=== PATIENT | female | born 1980 | race Caucasian/White ===

== ENCOUNTER 2016-10-13 | Emergency (ER) | payer OTHER ==
--- NOTE | 2016-10-13 16:04 | ED ---
General Adult HPI - General Chief complaint: Neck Pain/Injury Stated complaint: Neck Pain/swollen Time Seen by Provider: 10/13/16 15:44 Source: patient, RN notes reviewed Mode of arrival: ambulatory Limitations: no limitations - History of Present Illness Initial comments: This is a 36-year-old female presents with a lump to the left submandibular area 3 days. Patient states she has a history of a blocked salivary duct about 9 months ago. Patient states her symptoms of pain and swelling to the lower left jaw are similar to this. Patient states she has tried sucking on hard candies adn warm compresses, but this has not helped. Patient states the pain is worse when she is eating. Patient states she's had a sore throat for the last 2 weeks but this has completely resolved. Any cough, congestion or headache or sore throat today. Patient denies any recent fever, chills, shortness breath, chest pain, abdominal pain, nausea/vomiting/diarrhea, back pain, numbness, tingling, hematuria, headache, or visual changes, or any other complaints. - Related Data Home Medications Medication Instructions Recorded Confirmed Beclomethasone Dipropionate [Qvar 1 puff INHALATION RT-BID 11/28/15 10/13/16 80 mcg/puff] Hydrocodone/Acetaminophen [[place] 1 tab PO BID PRN 11/28/15 10/13/16 7.5-325] Diazepam [Valium] 10 mg PO BID PRN 01/26/16 10/13/16 Fluticasone Propionate 2 spray EA NOSTRIL DAILY 01/26/16 10/13/16 [Fluticasone Propionate] Ipratropium [place] [Atrovent Hfa] 2 puff INHALATION RT-QID 01/26/16 10/13/16 Pantoprazole Sodium [Pantoprazole 40 mg PO DAILY 01/26/16 10/13/16 Sodium] Butalb/APAP/Caff 50-325-40Mg 1 tab PO Q4H PRN 02/07/16 10/13/16 [Fioricet 50-325-40] guaiFENesin [Mucinex] 600 mg PO BID PRN 02/07/16 10/13/16 Previous Rx's Medication Instructions Recorded Ondansetron Odt [Zofran ODT] 4 mg PO Q8HR PRN #5 tab 02/07/16 Guaifenesin/Dextromethorphan 1 each PO TID PRN #20 capsule 02/13/16 [Robitussin Wazjk-Iujbj-Vpde Dm] Cephalexin [Keflex] 500 mg PO Q6H 7 Days 10/13/16 Allergies Allergy/AdvReac Type Severity Reaction Status Date / Time Penicillins Allergy Chest Pain Verified 02/12/16 22:35 latex AdvReac Rash/Hives Verified 02/12/16 22:35 Review of Systems ROS Statement: Those systems with pertinent positive or pertinent negative responses have been documented in the HPI. ROS Other: All systems not noted in ROS Statement are negative. Past Medical History Past Medical History: Hypertension Additional Past Medical History / Comment(s): marijuana card for chronic pain and nausea History of Any Multi-Drug Resistant Organisms: None Reported Past Surgical History: Orthopedic Surgery, Tonsillectomy, Tubal Ligation Past Anesthesia/Blood Transfusion Reactions: No Reported Reaction Past Psychological History: Anxiety Smoking Status: Former smoker Past Alcohol Use History: None Reported Past Drug Use History: Marijuana - Past Family History Mother Family Medical History: No Reported History General Exam - General Exam Comments Initial Comments: General: The patient is awake and alert, in no distress, and does not appear acutely ill. Eye: Pupils are equal, round and reactive to light, extra-ocular movements are intact. No nystagmus. There is normal conjunctiva bilaterally. No signs of icterus. Ears: TMs pink and pearly bilaterally with intact cone of light bilaterally. Normal external ear canals. Nose: Nasal turbinates pink and moist Mouth and throat: There is no sign of salivary stone, purulent drainage or swelling. No erythema of the posterior pharynx or exudates. There are moist mucous membranes and no oral lesions. Neck: There is tenderness to palpation over the submandibular area of the left side and an approximately 1 cm lump. Tender to palpation. There is no erythema or swelling noted with visualization. The neck is supple, there is no JVD. Cardiovascular: There is a regular rate and rhythm. No murmur, rub or gallop is appreciated. Respiratory: Lungs are clear to auscultation, respirations are non-labored, breath sounds are equal. No wheezes, stridor, rales, or rhonchi. Musculoskeletal: Normal ROM, no tenderness. Strength 5/5. Sensation intact. Radial pulses equal bilaterally 2+. Neurological: A&O x 3. CN II-XII intact, There are no obvious motor or sensory deficits. Coordination appears grossly intact. Speech is normal. Skin: Skin is warm and dry and no rashes or lesions are noted. Psychiatric: Cooperative, appropriate mood & affect, normal judgment. Limitations: no limitations Course Vital Signs 10/13/16 15:29 Temperature 99.1 F Pulse Rate 100 Respiratory 20 Rate Blood Pressure 133/85 O2 Sat by Pulse 95 Oximetry Medical Decision Making - Medical Decision Making This is a 36 over female presents with tenderness to the left submandibular area 3 days. On physical exam Mouth and throat: There is no sign of salivary stone, purulent drainage or swelling. No erythema of the posterior pharynx or exudates. There are moist mucous membranes and no oral lesions. Neck: There is tenderness to palpation over the submandibular area of the left side and an approximately 1 cm lump. Tender to palpation. There is no erythema or swelling noted with visualization. The neck is supple, there is no JVD. Tender to palpation. There is no erythema or swelling noted with visualization. The neck is supple, there is no JVD. Patient is afebrile in the EC today. Discussed that the patient will be put on a course of Keflex. Discussed continuation of hard candy/lemon drops, warm compresses to the area and massage to the area. Discussed Tylenol or Motrin as stated for any pain. Discussed close follow-up with primary care physician. Discussed return parameters. Discussed that patient should follow up with PCP in one to 2 days or return to the EC for any worsening symptoms or for any further concerns. Patient was receptive to this plan and patient will be discharged home. I discussed his case with attending physician Dr. Carrington who agrees the plan as stated above. Disposition Clinical Impression: Sialadenitis Disposition: HOME SELF-CARE Condition: Good Instructions: Sialoadenitis (ED) Additional Instructions: Please finish entire course of antibiotics. Please continue hard candy, warm compresses to the area and gentle massages to the area. Please use Tylenol or Motrin for any pain.Please use medication as discussed. Please follow-up with family doctor in the next 2 days of symptoms have not improved. Please return to emergency room if the symptoms increase or worsen or for any other concerns. Prescriptions: Cephalexin [Keflex] 500 mg PO Q6H 7 Days Referrals: Melquiades Bruce MD [Primary Care Provider] - 1-2 days Time of Disposition: 16:15
== END 2016-10-13 16:26 | disposition home or self-care (01) ==
CPT/HCPCS: 99283

== ENCOUNTER → 2017-02-06 | Outpatient (CLI) | payer OTHER ==
--- NOTE | 2017-02-06 10:13 | US ---
EXAMINATION TYPE: US pelvis complete transvag DATE OF EXAM: 02/06/2017 9:48 AM COMPARISON: None CLINICAL HISTORY: N92.0 Mennorrheagia with reg cycle. FU right ovarian cysts, tubal ligation TECHNIQUE: Transvaginal (TV) and Transabdominal (TA) Date of LMP: 12/31/2016, EXAM MEASUREMENTS: Uterus: 12.3 x 5.3 x 3.9 cm Endometrial Stripe: 0.8 cm Left Ovary: 2.8 x 2.0 x 2.0 cm 1. Uterus: Anteverted right hypoechoic lesion - 1.7 x 1.6 x 1.7 cm 2. Endometrium: wnl 3. Right Ovary: Obscured by overlying bowel gas 4. Left Ovary: echogenic lesion, nonvascular = 0.3 x 0.5 x 0.5 cm Spectral, color and waveform doppler imaging shows good arterial and venous flow within the ovaries ; there is no evidence for ovarian torsion. 5. Bilateral Adnexa: wnl 6. Posterior cul-de-sac: no free fluid IMPRESSION: 1. Nonspecific 5 mm echogenic lesion left ovary 2 small to accurately characterize could represent a dermoid. Other etiologies not excluded. 2. Hypoechoic lesion uterine myometrium nonspecific but most suggestive of fibroid measuring 1.7 cm.
[2017-02-06 11:46] LABS: Follicle Stimulating Hormone 2.7 mIU/mL
== END | disposition home or self-care (01) ==
LOC: RADUSWWP 08:59
PROVIDERS: ATTEND Obstetrics & Gynecology
DX: N85.9 Noninflammatory disorder of uterus, unspecified (principal); N83.9 Noninflammatory disorder of ovary, fallopian tube and broad ligament, unspecified; N92.0 Excessive and frequent menstruation with regular cycle
CPT/HCPCS: 36415; 76830; 76856; 83001; 83002; 84146; 84443

== ENCOUNTER → 2017-02-13 | Outpatient (CLI) | payer OTHER ==
--- NOTE | 2017-02-14 08:40 | MM ---
Reason for exam: screening (asymptomatic). Baseline mammogram. History: Took hormonal contraceptives for 1 year beginning at age 31. Physical Findings: Nurse did not find any significant physical abnormalities on exam. MG Screening Mammo w CAD Bilateral CC and MLO view(s) were taken. The breast tissue is heterogeneously dense. This may lower the sensitivity of mammography. Finding: There is a 10 mm indistinct oval mass in the middle, central position of the left breast. These results were verbally communicated with the patient and result sheet given to the patient on . ASSESSMENT: Incomplete: need additional imaging evaluation, BI-RAD 0 RECOMMENDATION: Special view mammogram of the left breast. If lesion persists on supplemental views, image directed ultrasound is recommended. [facility] will attempt to contact patient to return for supplemental views and ultrasound if indicated.
--- NOTE | 2017-02-14 08:42 | MM ---
Reason for exam: additional evaluation requested from abnormal screening. History: Took hormonal contraceptives for 1 year beginning at age 31. MG Work Up Mamm w CAD LT Spot compression CC, spot compression MLO, and ML view(s) were taken of the left breast. The breast tissue is heterogeneously dense. This may lower the sensitivity of mammography. Finding: There is a 10 mm obscured oval mass in the middle, central position of the left breast, persists on additional views. These results were verbally communicated with the patient and result sheet given to the patient on 02/13/17. ASSESSMENT: Incomplete: need additional imaging evaluation, BI-RAD 0 RECOMMENDATION: Ultrasound of the left breast.
--- NOTE | 2017-02-14 08:44 | USB ---
Reason for exam: additional evaluation requested from abnormal screening. History: Took hormonal contraceptives for 1 year beginning at age 31. US Breast Workup LT Left breast ultrasound includes all four quadrants, the retroareolar region and axilla. Finding demonstrate no cystic or solid lesion seen. Image directed scan with mammogram unit-not seen by ultrasound. These results were verbally communicated with the patient and result sheet given to the patient on 02/13/17. ASSESSMENT: Suspicious, BI-RAD 4 RECOMMENDATION: Stereotactic core biopsy of the left breast. (no ultrasound correlation) Called Dr. Keith with mammographic findings and has scheduled an appointment for the patient for 02/26/17 at 9:[address] Dowell. Biopsy scheduled for 02/21/17 at 2:20. PRELIMINARY REPORT CALLED AND FAXED TO DR. DOWELL ON 02/14/17 AT 300/TP.
== END | disposition home or self-care (01) ==
LOC: RADMAMWWP 08:15
PROVIDERS: ATTEND Obstetrics & Gynecology
DX: Z12.31 Encounter for screening mammogram for malignant neoplasm of breast (principal); R92.8 Other abnormal and inconclusive findings on diagnostic imaging of breast; R92.2 Inconclusive mammogram
CPT/HCPCS: 76641; G0202; G0206

== ENCOUNTER → 2017-02-21 | Day surgery (SDC) | payer OTHER ==
[~2017-02-21] MED LIST: BACITRACIN OINT 1 EACH PACKET TOPICAL ONE; LIDOCAINE 1% INJ 10MG/ML (20 ML MDV) ONE
--- NOTE | 2017-02-26 13:04 | MM ---
EXAMINATION TYPE: MG stereo VAD BX LT DATE OF EXAM: 02/21/2017 COMPARISON: 02/13/2017 CLINICAL HISTORY: Abnormal mammogram TECHNIQUE: Stereotactic guided core biopsy of left breast. FINDINGS: The procedure of stereotactic guided core biopsy was explained to the patient. Benefits, alternatives, and risks were discussed. An informed consent was then obtained. The shortness pathway for biopsy was chosen. [facility] Targeting and the procedure were performed by Dr. Berg. A vacuum assisted biopsy gun was used to obtain multiple core samples. The patient tolerated the procedure well without any immediate complication. The patient was kept in the radiology department for short stay after the procedure and then discharged home in stable condition. Post biopsy mammogram shows the clip to appear in satisfactory position relative to the targeted masslike area of concern on the preprocedure images. IMPRESSION: SUCCESSFUL, UNCOMPLICATED STEREOTACTIC GUIDED CORE BIOPSY OF AREA OF CONCERN IN THE left BREAST, FULL PATHOLOGY RESULTS TO FOLLOW. Pathology Results: Benign BREAST, LEFT, SITE A, CORE BIOPSY: FIBROCYSTIC CHANGES INCLUDING FIBROADENOMATOID HYPERPLASIA WITH FOCAL FAT NECROSIS, FIBROSIS AND CYSTS. Recommendation Follow up mammogram and ultrasound of the left breast in 6 months. ED
== END ==
LOC: RADMAMWWP 14:08
PROVIDERS: ATTEND Surgery
DX: N62 Hypertrophy of breast (principal); R92.8 Other abnormal and inconclusive findings on diagnostic imaging of breast; D24.2 Benign neoplasm of left breast; N64.1 Fat necrosis of breast; N60.32 Fibrosclerosis of left breast; N60.12 Diffuse cystic mastopathy of left breast; Z91.040 Latex allergy status
CPT/HCPCS: 88305; 19081; A4648; J2001

== ENCOUNTER 2017-03-29 06:23 | Day surgery (SDC) | payer OTHER ==
[2017-03-26 17:10] VITALS: BMI 43.9
[~2017-03-29 06:23] MED LIST changes: -BACITRACIN OINT 1 EACH PACKET TOPICAL ONE; +DEXAMETHASONE SOD PHOSPHATE 10 MG/ML 1 ML VIAL IV ONE; +LACTATED RINGERS 1,000 ML IV SCH; -LIDOCAINE 1% INJ 10MG/ML (20 ML MDV) ONE; +MIDAZOLAM 2 MG/2 ML VIAL IV PRN; +ONDANSETRON 4 MG/2 ML VIAL IVP ONE; +Pre Op ABX Message 1 EACH MISC MISCELLANE ONE; +SCOPOLAMINE 1.5MG/72HR PATCH TRANSDERM ONE
[2017-03-29] MEDS ORDERED: LIDOCAINE 1% 20 ML VIAL (10MG/ML) FOR IV START INTRADERMA ONE (06:59)
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
[2017-03-29] MEDS ORDERED: KETOROLAC 30 MG/ML 1 ML VIAL ONE (07:42)
[2017-03-29] MEDS ORDERED: LIDOCAINE 1% INJ 10MG/ML (20 ML MDV) ONE (07:42)
[2017-03-29] MEDS ORDERED: fentaNYL (PF) 50 MCG/ML 2 ML AMP ONE (07:42)
[2017-03-29] MEDS ORDERED: MEPERIDINE 50 MG/ML SYRINGE ONE (07:42)
[2017-03-29] MEDS ORDERED: MIDAZOLAM 2 MG/2 ML VIAL ONE (07:42)
[2017-03-29] MEDS ORDERED: SUCCINYLCHOLINE CHLORIDE 100 MG/5 ML SYR IV ONE (07:42)
[2017-03-29] MEDS ORDERED: GLYCOPYRROLATE 0.2 MG/ML 2 ML VIAL ONE (07:42)
[2017-03-29] MEDS ORDERED: PROPOFOL 10 MG/ML 20 ML VIAL IV ONE (07:42)
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
[2017-03-29 08:20] VITALS: TEMP 97.2
[2017-03-29] MEDS: HYDROmorphone 1 MG/ML 1 ML SYRINGE IVP PRN ×2 (08:24→08:33)
[2017-03-29 09:18] VITALS: RESP 16
[2017-03-29 09:40] VITALS: BP 102/69; PULSE 71
== END 2017-03-29 10:28 | disposition home or self-care (01) ==
LOC: OR 06:23
PROVIDERS: ATTEND Obstetrics & Gynecology
DX: N92.0 Excessive and frequent menstruation with regular cycle (principal); N85.9 Noninflammatory disorder of uterus, unspecified; N85.00 Endometrial hyperplasia, unspecified; J45.909 Unspecified asthma, uncomplicated; K21.9 Gastro-esophageal reflux disease without esophagitis; F41.9 Anxiety disorder, unspecified; E78.5 Hyperlipidemia, unspecified; I10 Essential (primary) hypertension; G89.29 Other chronic pain; F12.90 Cannabis use, unspecified, uncomplicated; G43.909 Migraine, unspecified, not intractable, without status migrainosus; R11.0 Nausea; Z87.891 Personal history of nicotine dependence; Z91.040 Latex allergy status; Z79.899 Other long term (current) drug therapy; Z79.51 Long term (current) use of inhaled steroids
CPT/HCPCS: 58563; 81025; 88305; J2250; J1100; J2175; J2405; J2001; J3010; J1885; J1170; J0330; J2704

== ENCOUNTER 2017-06-19 08:24 | Emergency (ER) | payer OTHER ==
[2017-06-19 08:34] VITALS: PULSE 69
--- NOTE | 2017-06-19 08:50 | ED ---
General Adult HPI - General Chief complaint: Neck Pain/Injury Stated complaint: NECK PAIN Time Seen by Provider: 06/19/17 08:39 Source: patient, RN notes reviewed Mode of arrival: ambulatory Limitations: no limitations - History of Present Illness Initial comments: 36-year-old female presents to the emergency department with a chief complaint of left-sided posterior neck swelling. Patient states the last year so she's noticed is gradually growing area to the left side of the neck. Patient states she's now having numbness and tingling down her left arm. Patient states it's tender to touch or issues denies any drainage or discharge. She does admit to history of systems the past. She continues to have this discomfort so she thought that she should be evaluated. Patient denies any falls traumas or injuries. Patient denies any fever or chills. Patient denies any other symptoms at this time.Patient denies any recent fever, chills, shortness of breath, chest pain, back pain, abdominal pain, nausea vomiting, numbness or tingling, dysuria or hematuria, constipation or diarrhea, headaches or visual changes, or any other current symptoms. - Related Data Home Medications Medication Instructions Recorded Confirmed Pantoprazole Sodium [Pantoprazole 40 mg PO DAILY 01/26/16 03/29/17 Sodium] Butalb/APAP/Caff 50-325-40Mg 1 tab PO Q4H PRN 02/07/16 03/29/17 [Fioricet 50-325-40] Albuterol Inhaler [Ventolin Hfa 1 - 2 puff INHALATION Q6HR PRN 03/26/17 03/29/17 Inhaler] Sertraline [Zoloft] 50 mg PO HS 03/26/17 03/29/17 Topiramate [Topiramate] 50 mg PO HS 03/26/17 03/29/17 Budesonide/Formoterol Fumarate 1 puff INHALATION RT-BID 06/19/17 06/19/17 [Symbicort 80-4.5 Mcg Inhaler] Diazepam [Valium] 5 mg PO DAILY PRN 06/19/17 06/19/17 Hydrocodone/Acetaminophen [[place] 1 tab PO BID PRN 06/19/17 06/19/17 7.5-325] Previous Rx's Medication Instructions Recorded Ibuprofen [Motrin] 600 mg PO Q6HR PRN #30 tab 06/30/17 Allergies Allergy/AdvReac Type Severity Reaction Status Date / Time latex Allergy Rash/Hives Verified 06/19/17 08:59 Review of Systems ROS Statement: Those systems with pertinent positive or pertinent negative responses have been documented in the HPI. ROS Other: All systems not noted in ROS Statement are negative. Past Medical History Past Medical History: Hypertension Additional Past Medical History / Comment(s): marijuana card for chronic pain and nausea History of Any Multi-Drug Resistant Organisms: None Reported Past Surgical History: Orthopedic Surgery, Tonsillectomy, Tubal Ligation Past Anesthesia/Blood Transfusion Reactions: No Reported Reaction Past Psychological History: ADD/ADHD, Anxiety, Bipolar, Depression Smoking Status: Former smoker Past Alcohol Use History: Occasional Past Drug Use History: Marijuana - Past Family History Mother Family Medical History: No Reported History General Exam Limitations: no limitations General appearance: alert, in no apparent distress Head exam: Present: atraumatic, normocephalic, normal inspection Eye exam: Present: normal appearance, PERRL, EOMI. Absent: scleral icterus, conjunctival injection, periorbital swelling ENT exam: Present: normal exam, mucous membranes moist Neck exam: Present: normal inspection, full ROM, other (She does appear to have swelling over the left lateral aspect of the neck). Absent: tenderness, meningismus Respiratory exam: Present: normal lung sounds bilaterally. Absent: respiratory distress, wheezes, rales, rhonchi, stridor Cardiovascular Exam: Present: regular rate, normal rhythm, normal heart sounds. Absent: systolic murmur, diastolic murmur, rubs, gallop, clicks Extremities exam: Present: normal inspection, full ROM, normal capillary refill. Absent: tenderness, pedal edema, joint swelling, calf tenderness Neurological exam: Present: alert, oriented X3 Psychiatric exam: Present: normal affect, normal mood Skin exam: Present: warm, dry, intact, normal color. Absent: rash Course Vital Signs 06/19/17 08:32 Temperature 97.5 F L Pulse Rate 69 Respiratory 18 Rate Blood Pressure 140/91 O2 Sat by Pulse 98 Oximetry Medical Decision Making - Medical Decision Making 36-year-old female presents emergency department with a chief complaint of concern during the posterior neck. At this time the patient does appear to have some tenderness with patient. CAT scan is reviewed and negative. At this time we discussed the could be a muscle spasm. We did discuss heat to the area. Discussed follow-up with neurologist return parameters and all his questions. They stated the Luis Alberto management plan. They will be discharged home. - Radiology Data Radiology results: report reviewed, image reviewed Disposition Clinical Impression: Cervical muscle pain Disposition: HOME SELF-CARE Condition: Stable Instructions: Muscle Spasm (ED) Additional Instructions: Please use medication as discussed. Please follow up with family doctor if symptoms have not improved over the next two days. Please return to the emergency room if your symptoms increase or worsen or for any other concerns. Referrals: Yue Roca MD [Primary Care Provider] - 1-2 days Time of Disposition: 10:19
--- NOTE | 2017-06-19 09:33 | CT ---
EXAMINATION TYPE: CT cervical spine wo con DATE OF EXAM: 06/19/2017 COMPARISON: NONE HISTORY: neck pain/lump posteriorly started [address] DLP: 913.[address] of the cervical spine was performed with bone and soft tissue window settings submitted . Coronal and sagittal reconstruction is obtained. There is normal alignment and prevertebral soft tissues. I do not see evidence for fracture or sublu xation. No significant degenerative changes are present. The lung apices are clear. If symptoms per sist consider MRI. IMPRESSION: No evidence for fracture or subluxation of the cervical spine.
[2017-06-19 10:23] VITALS: BP 138/83; RESP 16; TEMP 99.1
== END 2017-06-19 10:24 | disposition home or self-care (01) ==
LOC: EC 08:24
DX: M79.1 Myalgia (principal); R22.1 Localized swelling, mass and lump, neck; R20.0 Anesthesia of skin; R20.2 Paresthesia of skin; F41.9 Anxiety disorder, unspecified; Z87.891 Personal history of nicotine dependence; Z79.51 Long term (current) use of inhaled steroids; Z79.899 Other long term (current) drug therapy; Z91.040 Latex allergy status
CPT/HCPCS: 72125; 99283

== ENCOUNTER → 2017-07-19 | Outpatient (CLI) | payer OTHER ==
--- NOTE | 2017-07-22 09:50 | MR ---
EXAMINATION TYPE: MR cervical spine wo con DATE OF EXAM: 07/19/2017 COMPARISON: NONE HISTORY: Neck pain TECHNIQUE: Multiplanar, multisequence images of the cervical spine were acquired. C2-C3: No evidence for degenerative disc disease. No disc bulge/herniation or protrusion. No Canal stenosis. Foramina are patent bilaterally. C3-C4: Degenerative disc disease. There is uncovertebral joint hypertrophy bilaterally. No neural for aminal encroachment or canal stenosis. C4-C5: Degenerative disc disease. There is uncovertebral joint hypertrophy and left paracentral later al disc bulging with mild left foraminal encroachment. No Canal stenosis. C5-C6: Degenerative disc disease with posterior spondylosis and uncovertebral joint hypertrophy. Broa d-based central disc bulging greater paracentrally to left with no evidence of canal stenosis. Mild b ilateral foraminal encroachment. C6-C7: No disc herniation or canal stenosis. No foraminal encroachment. Very mild left paracentral di sc bulging. C7-T1: No evidence for degenerative disc disease. No disc bulge/herniation or protrusion. No Canal stenosis. Foramina are patent bilaterally. Cervical segments are intact. There is normal alignment. Cervical spinal cord is of normal signal. Craniovertebral junction relationships are within normal limits. IMPRESSION: 1. Multilevel degenerative disc disease with loss of the normal cervical lordosis which could been th e basis of muscular spasm. 2. Multilevel disc bulging with no canal stenosis. Foraminal encroachment as discussed above.
== END | disposition home or self-care (01) ==
LOC: RADMRIMAIN 21:08
PROVIDERS: ATTEND Psychiatry & Neurology Pain Medicine
DX: M50.20 Other cervical disc displacement, unspecified cervical region (principal); M50.30 Other cervical disc degeneration, unspecified cervical region
CPT/HCPCS: 72141

== ENCOUNTER → 2018-01-03 | Outpatient (CLI) | payer OTHER ==
--- NOTE | 2018-01-03 09:22 | CT ---
EXAMINATION TYPE: CT foot RT wo con DATE OF EXAM: 01/03/2018 COMPARISON: 06/22/2016 HISTORY: 37-year-old female primary OA right foot, assess status of the arthrodesis, foot pain. TECHNIQUE: Contiguous axial scanning of the right foot without IV contrast. Coronal and sagittal renetta nstructions performed. Radiographic obstruction generated on a dedicated independent workstation. CT DLP: 188.6 mGycm Automated exposure control for dose reduction was used. FINDINGS: Postsurgical changes of surgical arthrodesis along the medial midfoot encompassing the Lisfranc joint , first and second TMT joints, and the medial and middle cuneiforms. The surgical hardware remains in tact. Of note, the horizontally oriented, laterally directed screw that traverses the medial cuneiforms and base of the second metatarsal has its tip just piercing the lateral cortex second metatarsal base an d protrudes into the second-third intermetatarsal joint (coronal image 35 and 36 and axial image 30 a nd 31). There is satisfactory bony fusion seen along the dorsal and mid aspect of the intercuneiform joint. S mall 6 mm bone fragment interposed between the inferior aspects of the cuneiforms was present on the preoperative exam in retrospect. Satisfactory bony bridging across the first and second TMT joints. No acute fracture or malalignment. Intraosseous lipoma measuring 2.4 cm posterior calcaneus. IMPRESSION: 1. MIDFOOT SURGICAL ARTHRODESIS ACROSS THE LISFRANC JOINT, FIRST AND SECOND TMT JOINTS, WELL TH E MEDIAL AND MIDDLE CUNEIFORMS. 2. SUCCESSFUL BONY ANKYLOSIS ACROSS THE FIRST AND SECOND TMT JOINTS WELL THE DORSAL AND MID ASP ECT OF THE MEDIAL-MID CUNEIFORM JOINT. 3. OF NOTE, THE TIP OF THE LATERALLY DIRECTED SCREW THAT TRAVERSES THE MEDIAL CUNEIFORM AND BASE OF T HE SECOND METATARSAL JUST PIERCES THE LATERAL CORTEX OF THE SECOND METATARSAL BASE AND PROTRUDES MINI OLIMPIA INTO THE SECOND-THIRD INTERMETATARSAL JOINT.
== END | disposition home or self-care (01) ==
LOC: RADCTMAIN 07:22
PROVIDERS: ATTEND Orthopaedic Surgery Foot and Ankle Surgery
DX: M24.674 Ankylosis, right foot (principal); M19.071 Primary osteoarthritis, right ankle and foot; Z98.1 Arthrodesis status

== ENCOUNTER 2018-01-04 14:48 | Emergency (ER) | payer OTHER ==
[2018-01-04 15:27] LABS: Appearance,Urine Cloudy (Clear); Bilirubin,Urine Negative (Negative); Blood,Urine Negative (Negative); Color,Urine Yellow; Glucose,Urine (UA) Negative (Negative); Ketones,Urine Negative (Negative); Leukocyte Esterase,Urine Negative (Negative); Mucus,Urine Few /hpf; Nitrite,Urine Negative (Negative); PH, Urine 5.5 (5.0-8.0); Protein,Urine Negative (Negative); RBC,Urine 1 /hpf (0-5); Specific Gravity,Urine 1.011 (1.001-1.035); Squamous Epithelial Cell,Urine 15 /hpf (0-4); Urobilinogen,Urine <2.0 mg/dL (<2.0); WBC,Urine 2 /hpf (0-5)
--- NOTE | 2018-01-04 16:56 | ED ---
General Adult HPI - General Chief complaint: Urogenital Stated complaint: Back pain Time Seen by Provider: 01/04/18 16:45 Source: patient, RN notes reviewed Mode of arrival: ambulatory Limitations: no limitations - History of Present Illness Initial comments: Patient 37-year-old female who presents emergency room today with chief complaint of a knot that she can feel the right flank area. She states that she was diagnosed with urinary tract infection a few days ago has currently been on Macrobid. She states she noticed a fall smell with her urine and went to the family doctor. She states that the smell is gone away. She denies any dysuria. She states she feels better with the urinary tract symptoms. She admits that she felt a knot to the right flank area. Worse with certain movements. She does admit that she was lifting heavier things the other day. She states she does have some chronic back pain. She was worried was unsure if this was related she should have it checked. Patient denies any other complaints or symptoms. Patient denies any recent fever, chills, shortness of breath, chest pain, abdominal pain, nausea or vomiting, numbness or tingling, headaches or visual changes, or any other complaints. - Related Data Home Medications Medication Instructions Recorded Confirmed Pantoprazole Sodium [Pantoprazole 40 mg PO DAILY 01/26/16 01/04/18 Sodium] Butalb/APAP/Caff 50-325-40Mg 1 tab PO Q4H PRN 02/07/16 01/04/18 [Fioricet 50-325-40] Albuterol Inhaler [Ventolin Hfa 2 puff INHALATION RT-Q6H PRN 03/26/17 01/04/18 Inhaler] Sertraline [Zoloft] 50 mg PO HS 03/26/17 01/04/18 Topiramate [Topiramate] 50 mg PO HS 03/26/17 01/04/18 Budesonide/Formoterol Fumarate 1 puff INHALATION RT-BID 06/19/17 01/04/18 [Symbicort 80-4.5 Mcg Inhaler] Hydrocodone/Acetaminophen [[place] 1 tab PO BID PRN 06/19/17 01/04/18 7.5-325] Cyclobenzaprine HCl 10 mg PO HS PRN 01/04/18 01/04/18 LORazepam [Ativan] 0.5 mg PO HS PRN 01/04/18 01/04/18 Nitrofurantoin Monohyd/M-Cryst 100 mg PO BID 01/04/18 01/04/18 [Macrobid] Allergies Allergy/AdvReac Type Severity Reaction Status Date / Time latex Allergy Rash/Hives Verified 01/04/18 16:40 Review of Systems ROS Statement: Those systems with pertinent positive or pertinent negative responses have been documented in the HPI. ROS Other: All systems not noted in ROS Statement are negative. Past Medical History Past Medical History: Hypertension Additional Past Medical History / Comment(s): marijuana card for chronic pain and nausea History of Any Multi-Drug Resistant Organisms: None Reported Past Surgical History: Orthopedic Surgery, Tonsillectomy, Tubal Ligation Past Anesthesia/Blood Transfusion Reactions: No Reported Reaction Past Psychological History: ADD/ADHD, Anxiety, Bipolar, Depression Smoking Status: Former smoker Past Alcohol Use History: Rare Past Drug Use History: Marijuana - Past Family History Mother Family Medical History: No Reported History General Exam - General Exam Comments Initial Comments: General: The patient is awake and alert, in no distress, and does not appear acutely ill. Eye: Pupils are equal, round and reactive to light, extra-ocular movements are intact. No nystagmus. There is normal conjunctiva bilaterally. No signs of icterus. Ears, nose, mouth and throat: There are moist mucous membranes and no oral lesions. Neck: The neck is supple, there is no tenderness or JVD. Cardiovascular: There is a regular rate and rhythm. No murmur, rub or gallop is appreciated. Respiratory: Lungs are clear to auscultation, respirations are non-labored, breath sounds are equal. No wheezes, stridor, rales, or rhonchi Musculoskeletal: Normal appearance of the back shows good range of motion. Patient does have a area over on the right flank in the soft tissue that is firm or on palpation. Difficult to distinguish compared to the other side if there is any difference. Patient doesn't that is worse with certain movements of 20 minutes twisting. Strength 5/5. Sensation intact. Pulses equal bilaterally 2+. Neurological: A&O x 3. CN II-XII intact, There are no obvious motor or sensory deficits. Coordination appears grossly intact. Speech is normal. Skin: Skin is warm and dry and no rashes or lesions are noted. Psychiatric: Cooperative, appropriate mood & affect, normal judgment. Limitations: no limitations Course Vital Signs 01/04/18 15:09 Temperature 97.3 F L Pulse Rate 71 Respiratory 18 Rate Blood Pressure 136/12 O2 Sat by Pulse 97 Oximetry Medical Decision Making - Medical Decision Making Patient's area of pain is in the muscular skeletal area and is worse with certain movements. Is felt that this is a possible strain muscle. Advised to use muscle she states she does have at home when she may begin to use. She does have pain medicine at home. Her urinalysis showing no signs of infection at this time is advised to continue with the antibiotic that she was producing prescribed. Patient is advised to use heat to the areas there is some improvement over the next few days. Advised to follow-up the family physician if symptoms are not improving return here to the emergency room symptoms increase or worsen. - Lab Data Lab Results 01/04/18 Range/Units 15:15 Urine Color Yellow Urine Appearance Cloudy H (Clear) Urine pH 5.5 (5.0-8.0) Ur Specific [place] 1.011 (1.001-1.035) Urine Protein Negative (Negative) Urine Glucose (UA) Negative (Negative) Urine Ketones Negative (Negative) Urine Blood Negative (Negative) Urine Nitrite Negative (Negative) Urine Bilirubin Negative (Negative) Urine Urobilinogen <2.0 (<2.0) mg/dL Ur Leukocyte Esterase Negative (Negative) Urine RBC 1 (0-5) /hpf Urine WBC 2 (0-5) /hpf Ur Squamous Epith Cells 15 H (0-4) /hpf Urine Mucus Few H (None) /hpf Disposition Clinical Impression: Flank pain Disposition: HOME SELF-CARE Condition: Good Instructions: Muscle Strain (ED) Additional Instructions: Please use medication as discussed. Please follow-up with family doctor in the next 2 days of symptoms have not improved. Please return to emergency room if the symptoms increase or worsen or for any other concerns. Referrals: Yue Roca MD [Primary Care Provider] - 1-2 days Time of Disposition: 16:55
[2018-01-04 17:01] VITALS: BP 136/74; PULSE 83; RESP 16; TEMP 98.5
== END 2018-01-04 17:23 | disposition home or self-care (01) ==
LOC: EC 14:48
DX: R10.9 Unspecified abdominal pain (principal); M54.9 Dorsalgia, unspecified; F90.9 Attention-deficit hyperactivity disorder, unspecified type; F41.9 Anxiety disorder, unspecified; F31.9 Bipolar disorder, unspecified; Z87.891 Personal history of nicotine dependence; Z79.51 Long term (current) use of inhaled steroids; Z79.899 Other long term (current) drug therapy; Z91.040 Latex allergy status
CPT/HCPCS: 81001; 87086; 99283

== ENCOUNTER 2018-08-02 22:23 | Emergency (ER) | payer OTHER ==
[2018-08-02 22:32] VITALS: RESP 18
[2018-08-02] MEDS ORDERED: HYDROcodone/APAP 5-325MG 1 EACH TAB PO STA (23:03)
[2018-08-02] MEDS ORDERED: LIDOCAINE 5% PATCH TOPICAL STA (23:03)
--- NOTE | 2018-08-02 23:05 | ED ---
General Adult HPI - General Chief complaint: Urogenital Stated complaint: Back pain Source: patient Mode of arrival: ambulatory Limitations: no limitations - History of Present Illness Initial comments: Dictation was produced using [employer] dictation software. please excuse any grammatical, word or spelling errors. Chief Complaint: 37-year-old field past medical history of back spasms and kidney stones presents with 1 week of right-sided flank pain. History of Present Illness: Patient states that her flank pain feels like a burning sensation that is worse in the CVA area. She does report that it slightly worse with movement. Patient has a history of kidney stones. She states that she's been having difficulty urinating. She was concerned that she may be possibly having a kidney stone or urinary tract infection. Patient takes [place] daily for her chronic back symptoms. Denies any nausea or vomiting. No diarrhea. Constitutional symptoms. The ROS documented in this emergency department record has been reviewed and confirmed by me. Those systems with pertinent positive or negative responses have been documented in the HPI. All other systems are other negative and/or noncontributory. - Related Data Home Medications Medication Instructions Recorded Confirmed Pantoprazole Sodium 40 mg PO DAILY 01/26/16 01/04/18 Butalb/APAP/Caff 50-325-40Mg 1 tab PO Q4H PRN 02/07/16 01/04/18 [Fioricet 50-325-40] Albuterol Inhaler [Ventolin Hfa 2 puff INHALATION RT-Q6H PRN 03/26/17 01/04/18 Inhaler] Sertraline [Zoloft] 50 mg PO HS 03/26/17 01/04/18 Topiramate 50 mg PO HS 03/26/17 01/04/18 Budesonide/Formoterol Fumarate 1 puff INHALATION RT-BID 06/19/17 01/04/18 [Symbicort 80-4.5 Mcg Inhaler] Hydrocodone/Acetaminophen [[place] 1 tab PO BID PRN 06/19/17 01/04/18 7.5-325] Cyclobenzaprine HCl 10 mg PO HS PRN 01/04/18 01/04/18 LORazepam [Ativan] 0.5 mg PO HS PRN 01/04/18 01/04/18 Nitrofurantoin Monohyd/M-Cryst 100 mg PO BID 01/04/18 01/04/18 [Macrobid] Allergies Allergy/AdvReac Type Severity Reaction Status Date / Time latex Allergy Rash/Hives Verified 08/02/18 22:32 Review of Systems ROS Statement: Those systems with pertinent positive or pertinent negative responses have been documented in the HPI. ROS Other: All systems not noted in ROS Statement are negative. Past Medical History Past Medical History: Hypertension Additional Past Medical History / Comment(s): marijuana card for chronic pain and nausea History of Any Multi-Drug Resistant Organisms: None Reported Past Surgical History: Orthopedic Surgery, Tonsillectomy, Tubal Ligation Past Anesthesia/Blood Transfusion Reactions: No Reported Reaction Past Psychological History: ADD/ADHD, Anxiety, Bipolar, Depression Smoking Status: Former smoker Past Alcohol Use History: Rare Past Drug Use History: Marijuana - Past Family History Mother Family Medical History: No Reported History General Exam - General Exam Comments Initial Comments: PHYSICAL EXAM: General Impression: Alert and oriented x3, not in acute distress HEENT: Normocephalic atraumatic, extra-ocular movements intact, pupils equal and reactive to light bilaterally, mucous membranes moist. Cardiovascular: Heart regular rate and rhythm, S1&S2 audible, no murmurs, rubs or gallops Chest: Lungs clear to auscultation bilaterally, no rhonchi, no wheeze, no rales Abdomen: Bowel sounds present, abdomen soft, non-tender, non-distended, no organomegaly Musculoskeletal: Pulses present and equal in all extremities, no peripheral edema Motor: Power 5/5 bilaterally, no focal deficits noted Neurological: CN II-XII grossly intact, no focal motor or sensory deficits noted Skin: Intact with no visualized rashes Psych: Normal affect and mood Limitations: no limitations Course Vital Signs 08/02/18 22:29 Temperature 98.0 F Pulse Rate 96 Respiratory 18 Rate Blood Pressure 119/84 O2 Sat by Pulse 95 Oximetry Medical Decision Making - Medical Decision Making ED course: 37-year-old female past medical history of chronic back pain, kidney stones. He is also having urinary symptoms. Vital signs upon arrival are within acceptable limits.Laboratory evaluation obtained. Urinalysis is unremarkable. It does not reflect signs of urinary tract infection. Abdominal bladder ultrasound does not show any hydronephrosis. At this point there could be a obstructing kidney stone versus back spasms. Patient told to follow-up with primary care physician. Told to return to the emergency Department with any worsening symptoms. Patient understandable and agreeable. Patient provided lidocaine patch over her pain site. - Lab Data Lab Results 08/02/18 Range/Units 22:55 Urine Color Yellow Urine Appearance Cloudy H (Clear) Urine pH 5.5 (5.0-8.0) Ur Specific [place] 1.032 (1.001-1.035) Urine Protein Trace H (Negative) Urine Glucose (UA) Negative (Negative) Urine Ketones Negative (Negative) Urine Blood Negative (Negative) Urine Nitrite Negative (Negative) Urine Bilirubin Negative (Negative) Urine Urobilinogen 2.0 (<2.0) mg/dL Ur Leukocyte Esterase Negative (Negative) Urine RBC 1 (0-5) /hpf Urine WBC 1 (0-5) /hpf Ur Squamous Epith Cells 16 H (0-4) /hpf Urine Bacteria Rare H (None) /hpf Urine Mucus Many H (None) /hpf Disposition Clinical Impression: Back pain Disposition: HOME SELF-CARE Condition: Good Instructions: Back Pain (ED) Is patient prescribed a controlled substance at d/c from ED?: No Referrals: Yue Roca MD [Primary Care Provider] - 1-2 days Time of Disposition: 00:44
[2018-08-02 23:10] LABS: Appearance,Urine Cloudy (Clear); Bacteria,Urine Rare /hpf; Bilirubin,Urine Negative (Negative); Blood,Urine Negative (Negative); Color,Urine Yellow; Glucose,Urine (UA) Negative (Negative); Ketones,Urine Negative (Negative); Leukocyte Esterase,Urine Negative (Negative); Mucus,Urine Many /hpf; Nitrite,Urine Negative (Negative); PH, Urine 5.5 (5.0-8.0); Protein,Urine Trace (Negative); RBC,Urine 1 /hpf (0-5); Specific Gravity,Urine 1.032 (1.001-1.035); Squamous Epithelial Cell,Urine 16 /hpf (0-4); WBC,Urine 1 /hpf (0-5)
--- NOTE | 2018-08-03 00:37 | US ---
EXAMINATION TYPE: US kidneys/renal and bladder DATE OF EXAM: 08/03/2018 COMPARISON: US 2016 CLINICAL HISTORY: Pain. Right flank and back pain x 2 weeks EXAM MEASUREMENTS: Right Kidney: 11.1 x 5.3 x 5.1 cm Left Kidney: 10.8 x 5.0 x 4.9 cm Difficult and limited study due to patient body habitus Right Kidney: no hydronephrosis or masses seen Left Kidney: no hydronephrosis or masses seen Bladder: not fully distended Bilateral Jets seen: no No significant abnormality is seen at this time to account for patient's clinical symptoms. There is no evidence for hydronephrosis at this point in time. No nephrolithiasis is seen. No art s are identified. The urinary bladder is anechoic. Bilateral ureteral jets are seen. IMPRESSION: No hydronephrosis. No evidence of a renal mass. No atrophy. Urinary bladder unremarkable.
[2018-08-03 00:51] VITALS: BP 126/83; PULSE 87; TEMP 98.2
== END 2018-08-03 00:50 | disposition home or self-care (01) ==
LOC: EC 22:23
DX: M54.9 Dorsalgia, unspecified (principal); R10.9 Unspecified abdominal pain; R39.198 Other difficulties with micturition; F41.9 Anxiety disorder, unspecified; F32.9 Major depressive disorder, single episode, unspecified; Z87.891 Personal history of nicotine dependence; Z87.442 Personal history of urinary calculi; Z79.51 Long term (current) use of inhaled steroids; Z79.899 Other long term (current) drug therapy; Z91.040 Latex allergy status; Z98.51 Tubal ligation status
CPT/HCPCS: 76770; 81001; 87086; 99284

== ENCOUNTER 2018-08-15 23:03 | Emergency (ER) | payer OTHER ==
[2018-08-15] MEDS ORDERED: methylPREDNISolone SOD SUCCI 125 MG/2 ML VIAL IM ONE (23:18)
[2018-08-15] MEDS ORDERED: FAMOTIDINE 20 MG TAB PO STA (23:19)
--- NOTE | 2018-08-15 23:21 | ED ---
General Adult HPI - General Chief complaint: Allergic Reaction Stated complaint: Allergic Reaction Time Seen by Provider: 08/15/18 23:13 Source: patient, RN notes reviewed Mode of arrival: ambulatory Limitations: no limitations - History of Present Illness Initial comments: 37-year-old female presents to the emergency department for a chief complaint of ALLERGIC reaction 30 minutes. Patient states she was using gloves. She states that when she took off her gloves and touched her face her face started to feel hot. Patient states this also happened after she took a shot of object in nose so she is unsure of which cause this reaction. She denies any tingling or redness in her hands. Patient states the right side of her face again to feel hot. She denies any swelling of the lips tongue or throat. She denies any difficulty breathing. She did take 2 mg of Benadryl and states the swelling to the right side of the face and redness has gone down considerably. She states she has had an ALLERGIC reaction before to an unknown material but did not receive epinephrine. Patient has no other complaints at this time including shortness of breath, chest pain, abdominal pain, nausea or vomiting, headache, or visual changes. - Related Data Home Medications Medication Instructions Recorded Confirmed Pantoprazole Sodium 40 mg PO DAILY 01/26/16 08/15/18 Albuterol Inhaler [Ventolin Hfa 2 puff INHALATION RT-Q6H PRN 03/26/17 08/15/18 Inhaler] Sertraline [Zoloft] 50 mg PO HS 03/26/17 08/15/18 Hydrocodone/Acetaminophen [[place] 1 tab PO TID PRN 06/19/17 08/15/18 7.5-325] Budesonide/Formoterol Fumarate 2 puff INHALATION RT-BID 08/15/18 08/15/18 [Symbicort 160-4.5 Mcg Inhaler] Loratadine [Claritin] 10 mg PO DAILY 08/15/18 08/15/18 Allergies Allergy/AdvReac Type Severity Reaction Status Date / Time latex Allergy Rash/Hives Verified 08/15/18 23:43 Review of Systems ROS Statement: Those systems with pertinent positive or pertinent negative responses have been documented in the HPI. ROS Other: All systems not noted in ROS Statement are negative. Past Medical History Past Medical History: Hypertension Additional Past Medical History / Comment(s): marijuana card for chronic pain and nausea History of Any Multi-Drug Resistant Organisms: None Reported Past Surgical History: Orthopedic Surgery, Tonsillectomy, Tubal Ligation Past Anesthesia/Blood Transfusion Reactions: No Reported Reaction Past Psychological History: ADD/ADHD, Anxiety, Bipolar, Depression Smoking Status: Former smoker Past Alcohol Use History: Rare Past Drug Use History: Marijuana - Past Family History Mother Family Medical History: No Reported History General Exam Limitations: no limitations General appearance: alert, in no apparent distress Head exam: Present: atraumatic, normocephalic, normal inspection Eye exam: Present: normal appearance, PERRL, EOMI. Absent: scleral icterus, conjunctival injection, periorbital swelling ENT exam: Present: normal exam, normal oropharynx (Oropharynx patent, no swelling of the lips tongue or throat noted. Uvula midline.), mucous membranes moist, TM's normal bilaterally, normal external ear exam, other (Minor erythema and edema noted to the right side of the face around the cheek area.) Neck exam: Present: normal inspection, full ROM. Absent: tenderness, meningismus, lymphadenopathy Respiratory exam: Present: normal lung sounds bilaterally. Absent: respiratory distress, wheezes, rales, rhonchi, stridor Cardiovascular Exam: Present: regular rate, normal rhythm, normal heart sounds. Absent: systolic murmur, diastolic murmur, rubs, gallop, clicks GI/Abdominal exam: Present: soft, normal bowel sounds. Absent: distended, tenderness, guarding, rebound, rigid Course Vital Signs 08/15/18 08/16/18 23:05 01:08 Temperature 97.6 F 97.7 F Pulse Rate 109 H 96 Respiratory 21 18 Rate Blood Pressure 192/92 139/99 O2 Sat by Pulse 98 96 Oximetry Medical Decision Making - Medical Decision Making 37-year-old female since the emergency department for a chief complaint of ALLERGIC reaction occurring about 30 minutes prior to arrival. Patient states she touched her face after using gloves and also took a shot of [place] and malaise one of these may have caused the reaction. Patient states she had burning and redness to the right side of the face. She states this has resolved significantly since she took 50 mg of Benadryl. On exam patient is no swelling of the lips tongue or throat and denies any sensation of this. She denies sensation of difficulty breathing. Respirations are even and unlabored. Patient does not appear in distress. Patient was given Solu-Medrol here as well as Pepcid. On reevaluation patient states she is feeling much better. There is no erythema or swelling noted of the right side of the face. She states she is ready to go home. Discussed continuing Benadryl as needed and following up with primary care in 1-2 days. Disposition Clinical Impression: Allergic reaction Disposition: HOME SELF-CARE Condition: Good Instructions: General Allergic Reaction (ED) Additional Instructions: Please take Benadryl every 6 hours as needed. Please follow-up with primary care in 1-2 days. Return here to the emergency department if you have any worsening symptoms including difficulty breathing, or swelling of the lips tongue or throat. Is patient prescribed a controlled substance at d/c from ED?: No Referrals: Yue Roca MD [Primary Care Provider] - 1-2 days Time of Disposition: 00:34
[2018-08-16 01:10] VITALS: BP 139/99; PULSE 96; RESP 18; TEMP 97.7
== END 2018-08-16 01:09 | disposition home or self-care (01) ==
LOC: EC 23:03
DX: T78.40XA Allergy, unspecified, initial encounter (principal); G89.29 Other chronic pain; F31.9 Bipolar disorder, unspecified; F41.9 Anxiety disorder, unspecified; F12.929 Cannabis use, unspecified with intoxication, unspecified; Z87.891 Personal history of nicotine dependence; Z91.040 Latex allergy status; Z79.51 Long term (current) use of inhaled steroids; Z79.899 Other long term (current) drug therapy
CPT/HCPCS: 99282; 96372; J2930

== ENCOUNTER 2018-09-15 08:25 | Emergency (ER) | payer OTHER ==
[2018-09-15 08:50] VITALS: PULSE 78; RESP 15
[2018-09-15] MEDS ORDERED: KETOROLAC 60 MG/2 ML VIAL IM STA (08:53)
--- NOTE | 2018-09-15 08:58 | ED ---
General Adult HPI - General Chief complaint: Back Pain/Injury Stated complaint: Back pain Time Seen by Provider: 09/15/18 08:45 Source: patient, RN notes reviewed Mode of arrival: ambulatory Limitations: no limitations - History of Present Illness Initial comments: This is a 38-year-old female presents emergency department complaining of left mid back pain. Patient states it started 5 days ago and has been constant ever since per patient states is no numbness or weakness. Patient states the pain radiates a little to the left hip. Patient states movement makes the pain consistently worse. Patient denies any dysuria hematuria urinary frequency. Patient states she has chronic lower back pain but this is different than her normal pain per patient denies any trauma or injury. Patient states pressing on it does seem to make it hurt a little worse. Patient denies any abdominal pain. Patient denies any fever chills. - Related Data Home Medications Medication Instructions Recorded Confirmed Pantoprazole Sodium 40 mg PO DAILY 01/26/16 09/15/18 Albuterol Inhaler [Ventolin Hfa 2 puff INHALATION RT-Q6H PRN 03/26/17 09/15/18 Inhaler] Sertraline [Zoloft] 50 mg PO HS 03/26/17 09/15/18 Hydrocodone/Acetaminophen [[place] 1 tab PO TID PRN 06/19/17 09/15/18 7.5-325] Budesonide/Formoterol Fumarate 2 puff INHALATION RT-BID 08/15/18 09/15/18 [Symbicort 160-4.5 Mcg Inhaler] Loratadine [Claritin] 10 mg PO DAILY 08/15/18 09/15/18 Ibuprofen [Advil] 400 mg PO Q6HR PRN 09/15/18 09/15/18 Zofran (Unknown Dose) 1 tab PO BID PRN 09/15/18 09/15/18 Previous Rx's Medication Instructions Recorded Ibuprofen [Motrin] 600 mg PO Q6HR PRN #20 tab 09/15/18 Allergies Allergy/AdvReac Type Severity Reaction Status Date / Time latex Allergy Rash/Hives Verified 09/15/18 09:20 Review of Systems ROS Statement: Those systems with pertinent positive or pertinent negative responses have been documented in the HPI. ROS Other: All systems not noted in ROS Statement are negative. Past Medical History Past Medical History: Hypertension Additional Past Medical History / Comment(s): marijuana card for chronic pain and nausea History of Any Multi-Drug Resistant Organisms: None Reported Past Surgical History: Orthopedic Surgery, Tonsillectomy, Tubal Ligation Past Anesthesia/Blood Transfusion Reactions: No Reported Reaction Past Psychological History: ADD/ADHD, Anxiety, Bipolar, Depression Smoking Status: Former smoker Past Alcohol Use History: Rare Past Drug Use History: Marijuana - Past Family History Mother Family Medical History: No Reported History General Exam - General Exam Comments Initial Comments: GENERAL: Patient is well-developed and well-nourished. Patient is nontoxic and well- hydrated and is in mild distress. ENT: Neck is soft and supple. No significant lymphadenopathy is noted. Oropharynx is clear. Moist mucous membranes. Neck has full range of motion without eliciting any pain. EYES: The sclera were anicteric and conjunctiva were pink and moist. Extraocular movements were intact and pupils were equal round and reactive to light. Eyelids were unremarkable. PULMONARY: Unlabored respirations. Good breath sounds bilaterally. No audible rales rhonchi or wheezing was noted. CARDIOVASCULAR: There is a regular rate and rhythm without any murmurs gallops or rubs. ABDOMEN: Soft and nontender with normal bowel sounds. No palpable organomegaly was noted. There is no palpable pulsatile mass. SKIN: Skin is clear with no lesions or rashes and otherwise unremarkable. NEUROLOGIC: Patient is alert and oriented x3. Cranial nerves II through XII are grossly intact. Motor and sensory are also intact. Normal speech, volume and content. Symmetrical smile. Patient's straight leg is negative bilaterally MUSCULOSKELETAL: Palpating the left lower back is somewhat tender to palpation. LYMPHATICS: No significant lymphadenopathy is noted PSYCHIATRIC: Normal psychiatric evaluation. Limitations: no limitations Course Vital Signs 09/15/18 08:47 Temperature 97.9 F Pulse Rate 78 Respiratory 15 Rate Blood Pressure 130/103 O2 Sat by Pulse 97 Oximetry Medical Decision Making - Medical Decision Making Patient had a Toradol shot and was feeling considerably better. Patient agreed that she'll start Motrin 600 mg every 6 hours. Patient will try to lose weight. Patient will follow-up with her primary medical care doctor if there are any new or worsening symptoms. - Lab Data Lab Results 09/15/18 Range/Units 09:00 Urine Color Yellow Urine Appearance Cloudy H (Clear) Urine pH 7.0 (5.0-8.0) Ur Specific [place] 1.017 (1.001-1.035) Urine Protein Negative (Negative) Urine Glucose (UA) Negative (Negative) Urine Ketones Negative (Negative) Urine Blood Negative (Negative) Urine Nitrite Negative (Negative) Urine Bilirubin Negative (Negative) Urine Urobilinogen <2.0 (<2.0) mg/dL Ur Leukocyte Esterase Negative (Negative) Urine RBC 2 (0-5) /hpf Urine WBC 2 (0-5) /hpf Ur Squamous Epith Cells 8 H (0-4) /hpf Urine Mucus Rare H (None) /hpf Disposition Clinical Impression: Strain of lumbar region Disposition: HOME SELF-CARE Condition: Good Instructions: Acute Low Back Pain (ED) Prescriptions: Ibuprofen [Motrin] 600 mg PO Q6HR PRN #20 tab PRN Reason: For pain Is patient prescribed a controlled substance at d/c from ED?: No Referrals: Yue Roca MD [Primary Care Provider] - 1-2 days
[2018-09-15 09:29] LABS: Appearance,Urine Cloudy (Clear); Bilirubin,Urine Negative (Negative); Blood,Urine Negative (Negative); Color,Urine Yellow; Glucose,Urine (UA) Negative (Negative); Ketones,Urine Negative (Negative); Leukocyte Esterase,Urine Negative (Negative); Mucus,Urine Rare /hpf; Nitrite,Urine Negative (Negative); Protein,Urine Negative (Negative); RBC,Urine 2 /hpf (0-5); Specific Gravity,Urine 1.017 (1.001-1.035); Squamous Epithelial Cell,Urine 8 /hpf (0-4); Urobilinogen,Urine <2.0 mg/dL (<2.0); WBC,Urine 2 /hpf (0-5)
[2018-09-15 11:04] VITALS: BP 132/85; TEMP 97.3
== END 2018-09-15 11:04 | disposition home or self-care (01) ==
LOC: EC 08:25
DX: S39.012A Strain of muscle, fascia and tendon of lower back, initial encounter (principal); G89.29 Other chronic pain; F31.9 Bipolar disorder, unspecified; F41.9 Anxiety disorder, unspecified; Z87.891 Personal history of nicotine dependence; Z91.040 Latex allergy status; Z79.51 Long term (current) use of inhaled steroids; Z79.899 Other long term (current) drug therapy; X58.XXXA Exposure to other specified factors, initial encounter
CPT/HCPCS: 81001; 99283; 96372; J1885

== ENCOUNTER 2018-12-08 19:23 | Emergency (ER) | payer OTHER ==
[2018-12-08 19:33] VITALS: TEMP 98.1
[2018-12-08] MEDS ORDERED: IBUPROFEN 600 MG TAB PO STA (20:28)
--- NOTE | 2018-12-08 20:51 | XR ---
EXAMINATION TYPE: XR chest 2V DATE OF EXAM: 12/08/2018 COMPARISON: Two-view chest x-ray January 26, 2016. HISTORY: Cough congestion and fever. TECHNIQUE: Frontal and lateral views of the chest are obtained. FINDINGS: Central parahilar peribronchial cuffing is present. There is no focal air space opacity, p leural effusion, or pneumothorax seen. The cardiac silhouette size is within normal limits. The os seous structures are intact. IMPRESSION: No suspicious acute infiltrate. Suspect reactive airway disease possibly from a viral br onchiolitis, correlate clinically.
--- NOTE | 2018-12-08 21:08 | ED ---
General Adult HPI - General Chief complaint: Upper Respiratory Infection Stated complaint: sore throat, cough Time Seen by Provider: 12/08/18 19:49 Source: patient Mode of arrival: ambulatory Limitations: no limitations - History of Present Illness Initial comments: 38-year-old female denies past history presenting today for chief complaint of cough, sore throat and fever x 5 days. Patient states she's had a cough throat and fever for the past 5 days. She states her daughter has similar symptoms now. Patient states she has felt as though her has been racing for the past 2 days. Patient denies and chest pain, dyspnea, dyspnea exertion, lower extremity edema, recent travel, recent surgery, history of cancer, history of DVT or PE. Patient denies neck stiffness, difficulty swallowing. Remaining ROS (-), patient denies any recent back pain, abdominal pain, nausea or vomiting, numbness or tingling, dysuria or hematuria, constipation or diarrhea, headaches or visual changes, or any other complaints. Upon arrival patient appears well signs of acute distress. Obvious upper respiratory symptoms.. General: The patient is awake and alert, in no distress, and does not appear acutely ill. Eye: +3 mm pupils are equal, round and reactive to light, extra-ocular movements are intact. No nystagmus. There is normal conjunctiva bilaterally. No signs of icterus. No photophobia Ears, nose, mouth and throat: There are moist mucous membranes and no oral lesions. Oropharynx was not erythematous there is no tonsillar enlargement exudates or lesions. Uvula midline. Tympanic membranes are not erythematous or is no effusions bulging or retraction. No tenderness to palpation of the mastoid. No anterior cervical lymphadenopathy. Rhinorrhea, clear and bilateral nares. No tripoding, no drooling. Neck: The neck is supple, there is no tenderness or JVD. No nuchal rigidity negative Brudzinski and Kernig Cardiovascular: There is a regular rate and rhythm. No murmur, rub or gallop is appreciated. Respiratory: Lungs are clear to auscultation, respirations are non-labored, breath sounds are equal. No wheezes, stridor, rales, or rhonchi. No retractions or abdominal breathing. Gastrointestinal: Soft, non-distended, non-tender abdomen without masses or organomegaly noted. There is no rebound or guarding present. Bowel sounds are unremarkable. Musculoskeletal: Normal ROM, no tenderness. Strength 5/5. Sensation intact. Radial pulses equal bilaterally 2+. Neurological: A&O x 3. CN II-XII intact, There are no obvious motor or sensory deficits. Coordination appears grossly intact. Speech appears normal, no muffling. Skin: Skin is warm and dry and no rashes or lesions are noted. No extremity edema Psychiatric: Cooperative - Related Data Home Medications Medication Instructions Recorded Confirmed Pantoprazole Sodium 40 mg PO DAILY 01/26/16 12/08/18 Albuterol Inhaler [Ventolin Hfa 2 puff INHALATION RT-Q6H PRN 03/26/17 12/08/18 Inhaler] Sertraline [Zoloft] 50 mg PO HS 03/26/17 12/08/18 Hydrocodone/Acetaminophen [[place] 1 tab PO TID PRN 06/19/17 12/08/18 7.5-325] Budesonide/Formoterol Fumarate 2 puff INHALATION RT-BID 08/15/18 12/08/18 [Symbicort 160-4.5 Mcg Inhaler] Famotidine [Pepcid] 20 mg PO HS 12/08/18 12/08/18 Ondansetron HCl [Zofran] 8 mg PO BID PRN 12/08/18 12/08/18 Allergies Allergy/AdvReac Type Severity Reaction Status Date / Time latex Allergy Rash/Hives Verified 12/08/18 20:29 Review of Systems ROS Statement: Those systems with pertinent positive or pertinent negative responses have been documented in the HPI. ROS Other: All systems not noted in ROS Statement are negative. Past Medical History Past Medical History: Hypertension Additional Past Medical History / Comment(s): marijuana card for chronic pain and nausea History of Any Multi-Drug Resistant Organisms: None Reported Past Surgical History: Orthopedic Surgery, Tonsillectomy, Tubal Ligation Past Anesthesia/Blood Transfusion Reactions: No Reported Reaction Past Psychological History: ADD/ADHD, Anxiety, Bipolar, Depression Smoking Status: Former smoker Past Alcohol Use History: Rare Past Drug Use History: Marijuana - Past Family History Mother Family Medical History: No Reported History General Exam Limitations: no limitations Course Vital Signs 12/08/18 12/08/18 12/08/18 19:30 20:00 21:45 Temperature 98.1 F 98.1 F Pulse Rate 77 71 Respiratory 18 20 16 Rate Blood Pressure 122/84 130/78 O2 Sat by Pulse 95 98 Oximetry EKG Findings - EKG Comments: EKG Findings:: A 12-lead EKG was performed and shows the following: Rate is 66bpm, and rhythm is normal sinus. There are normal QRS complexes and normal R- wave progression. ST segments have no elevation or depression, and OK segments appear normal. OK interval 122 ms, QRS duration 86 ms, QT/QTC 406/425 ms. EKG interpreted by myself as well as attending provider Dr. Jackson Medical Decision Making - Medical Decision Making EKG no abnormalities. Chest x-ray within normal limits. Influenza negative however patient withdrew during testing. Daughter influenza A (+) most likely false (-). Patient has obvious upper respiratory symptoms consistent with influenza A. Patient be treated symptomatically. Symptoms greater than 72 hours, no tamiflu initiated. Discussed case with attending provider Dr. Jackson at this time we feel patient's symptomatic treatment to influenza A, patient will be discharged with symptomatic treatment and outpatient follow-up in patient's agreebale with plan discharge denies questions at this time. - Lab Data Lab Results 12/08/18 Range/Units 20:17 Influenza Type A RNA Not Detected (Not Detectd) Influenza Type B (PCR) Not Detected (Not Detectd) Disposition Clinical Impression: Influenza A Disposition: HOME SELF-CARE Condition: Good Instructions (If sedation given, give patient instructions): Influenza (ED) Additional Instructions: Please use medication as discussed. Please follow-up with family doctor in the next 2 days. Please return to emergency room if the symptoms increase or worsen or for any other concerns. Is patient prescribed a controlled substance at d/c from ED?: No Referrals: Yue Roca MD [Primary Care Provider] - 1-2 days Time of Disposition: 21:08
[2018-12-08 21:45] VITALS: BP 130/78; PULSE 71; RESP 16
== END 2018-12-08 21:45 | disposition home or self-care (01) ==
LOC: EC 19:23
DX: J10.1 Influenza due to other identified influenza virus with other respiratory manifestations (principal); I10 Essential (primary) hypertension; F90.9 Attention-deficit hyperactivity disorder, unspecified type; F41.9 Anxiety disorder, unspecified; F32.9 Major depressive disorder, single episode, unspecified; Z87.891 Personal history of nicotine dependence; Z79.51 Long term (current) use of inhaled steroids; Z79.899 Other long term (current) drug therapy; Z91.040 Latex allergy status
CPT/HCPCS: 71046; 87502; 93005; 99284

== ENCOUNTER 2019-02-18 18:20 | Emergency (ER) | payer OTHER ==
[2019-02-18 18:45] VITALS: TEMP 98.2
[2019-02-18] MEDS ORDERED: SODIUM CHLORIDE 0.9% 1,000 ML IV ONE (20:09)
[2019-02-18] MEDS ORDERED: KETOROLAC 30 MG/ML 1 ML VIAL IVP STA (20:09)
[2019-02-18] MEDS ORDERED: ONDANSETRON 4 MG/2 ML VIAL IVP STA (20:09)
[2019-02-18] MEDS ORDERED: HYDROmorphone 0.5 MG/0.5 ML SYRINGE IVP STA (20:09)
--- NOTE | 2019-02-18 20:24 | ED ---
Back Pain HPI - General Chief Complaint: Back Pain/Injury Stated Complaint: Back pain Time Seen by Provider: 02/18/19 19:43 Source: patient Limitations: no limitations - History of Present Illness Initial Comments: 38-year-old female patient presents to the emergency department today for evaluation of left flank pain that radiates around into the left lower quadrant abdomen. Patient states this started about 5 days ago and has been worsening. Patient states she does have history of chronic low back pain and does receive injections into her SI joints. Patient states her last injection was over a month ago. Patient states she has been nauseated with this. Has been having sweats and chills. Patient states she does have history of kidney stone as well as does feel similar to her previous episodes. She denies any known hematuria, dysuria, urinary frequency, urinary urgency. She denies any numbness or tingling to the lower extremities. Denies any saddle anesthesia or loss of bowel or bladder control. Patient denies any recent rash, shortness breath, chest pain, diarrhea, constipation, numbness, tingling, dizziness, weakness, headache, visual changes, or any other complaints. - Related Data Home Medications Medication Instructions Recorded Confirmed Pantoprazole Sodium 40 mg PO DAILY 01/26/16 02/18/19 Albuterol Inhaler [Ventolin Hfa 2 puff INHALATION RT-Q6H PRN 03/26/17 02/18/19 Inhaler] Sertraline [Zoloft] 50 mg PO HS 03/26/17 02/18/19 Hydrocodone/Acetaminophen [[place] 1 tab PO TID PRN 06/19/17 02/18/19 7.5-325] Budesonide/Formoterol Fumarate 2 puff INHALATION RT-BID 08/15/18 02/18/19 [Symbicort 160-4.5 Mcg Inhaler] Famotidine [Pepcid] 20 mg PO HS 12/08/18 02/18/19 Ondansetron HCl [Zofran] 8 mg PO BID PRN 12/08/18 02/18/19 Previous Rx's Medication Instructions Recorded Ibuprofen [Motrin] 600 mg PO Q8HR PRN #30 tab 02/18/19 Allergies Allergy/AdvReac Type Severity Reaction Status Date / Time latex Allergy Rash/Hives Verified 02/18/19 20:01 Review of Systems ROS Statement: Those systems with pertinent positive or pertinent negative responses have been documented in the HPI. ROS Other: All systems not noted in ROS Statement are negative. Past Medical History Past Medical History: Hypertension Additional Past Medical History / Comment(s): marijuana card for chronic pain and nausea History of Any Multi-Drug Resistant Organisms: None Reported Past Surgical History: Orthopedic Surgery, Tonsillectomy, Tubal Ligation Past Anesthesia/Blood Transfusion Reactions: No Reported Reaction Past Psychological History: ADD/ADHD, Anxiety, Bipolar, Depression Smoking Status: Former smoker Past Alcohol Use History: Rare Past Drug Use History: Marijuana - Past Family History Mother Family Medical History: No Reported History General Exam Limitations: no limitations General appearance: alert, in no apparent distress, other (Physical well- developed, well-nourished adult female patient in no acute distress. Vital signs upon presentation are temperature 98.2F, pulse 71, respirations 16, blood pressure 151/104, pulse ox 97% on room air.) Eye exam: Present: normal appearance, PERRL, EOMI. Absent: scleral icterus, conjunctival injection, periorbital swelling ENT exam: Present: normal exam, normal oropharynx, mucous membranes moist Respiratory exam: Present: normal lung sounds bilaterally. Absent: respiratory distress, wheezes, rales, rhonchi, stridor Cardiovascular Exam: Present: regular rate, normal rhythm, normal heart sounds. Absent: systolic murmur, diastolic murmur, rubs, gallop, clicks GI/Abdominal exam: Present: soft, normal bowel sounds. Absent: distended, tenderness, guarding, rebound, rigid Back exam: Present: normal inspection, CVA tenderness (L). Absent: CVA tenderness (R) Neurological exam: Present: alert, oriented X3, CN II-XII intact Psychiatric exam: Present: normal affect, normal mood Skin exam: Present: warm, dry, intact, normal color. Absent: rash Course Vital Signs 02/18/19 02/18/19 18:43 23:39 Temperature 98.2 F Pulse Rate 71 78 Respiratory 16 18 Rate Blood Pressure 151/104 122/93 O2 Sat by Pulse 97 98 Oximetry Medical Decision Making - Medical Decision Making 38-year-old female patient presents to the emergency department today for evaluation of low back pain radiating around to the left lower quadrant abdomen. Physical examination did reveal some mild left lower quadrant tenderness. Ziyad e left CVA tenderness. Labs reviewed and are relatively unremarkable. No evidence for urinary tract infection or blood in the urine. Patient did report feeling injections to her SI joint one month ago. Patient that she has been chilled and has felt feverish. We did perform CT the abdomen and pelvis to rule out kidney stone, infection, and other abdominal processes. CT was negative. I did discuss findings and results with the patient. We did discuss mechanical low back pain as a cause for her symptoms. She is instructed to follow-up with her primary care physician for recheck in 1-2 days which is instructed to follow up with her acid painter for recheck as soon as possible. Return parameters discussed in detail. She verbalizes understanding and agrees this plan. - Lab Data Result diagrams: 02/18/19 21:20 02/18/19 21:20 Lab Results 02/18/19 02/18/19 02/18/19 Range/Units 21:20 21:20 21:20 WBC 8.3 (3.8-10.6) k/uL RBC 4.75 (3.80-5.40) m/uL Hgb 13.6 (11.4-16.0) gm/dL Hct 41.6 (34.0-46.0) % MCV 87.7 (80.0-100.0) fL MCH 28.6 (25.0-35.0) pg MCHC 32.6 (31.0-37.0) g/dL RDW 13.0 (11.5-15.5) % Plt Count 320 (150-450) k/uL Neutrophils % 54 % Lymphocytes % 38 % Monocytes % 4 % Eosinophils % 2 % Basophils % 0 % Neutrophils # 4.5 (1.3-7.7) k/uL Lymphocytes # 3.1 (1.0-4.8) k/uL Monocytes # 0.4 (0-1.0) k/uL Eosinophils # 0.2 (0-0.7) k/uL Basophils # 0.0 (0-0.2) k/uL Sodium 140 (137-145) mmol/L Potassium 4.3 (3.5-5.1) mmol/L Chloride 107 (98-107) mmol/L Carbon Dioxide 25 (22-30) mmol/L Anion Gap 8 mmol/L BUN 11 (7-17) mg/dL Creatinine 0.88 (0.52-1.04) mg/dL Est GFR (CKD-EPI)AfAm >90 (>60 ml/min/1.73 sqM) Est GFR (CKD-EPI)NonAf 84 (>60 ml/min/1.73 sqM) Glucose 82 (74-99) mg/dL Calcium 10.0 (8.4-10.2) mg/dL Total Bilirubin 0.4 (0.2-1.3) mg/dL AST 29 (14-36) U/L ALT 27 (9-52) U/L Alkaline Phosphatase 63 (38-126) U/L Total Protein 7.2 (6.3-8.2) g/dL Albumin 4.3 (3.5-5.0) g/dL Amylase 46 (30-110) U/L Lipase 45 (23-300) U/L Urine Color Yellow Urine Appearance Clear (Clear) Urine pH 6.0 (5.0-8.0) Ur Specific [place] 1.038 H (1.001-1.035) Urine Protein Trace H (Negative) Urine Glucose (UA) Negative (Negative) Urine Ketones Trace H (Negative) Urine Blood Negative (Negative) Urine Nitrite Negative (Negative) Urine Bilirubin Negative (Negative) Urine Urobilinogen 2.0 (<2.0) mg/dL Ur Leukocyte Esterase Small H (Negative) Urine RBC 5 (0-5) /hpf Urine WBC 10 H (0-5) /hpf Ur Squamous Epith Cells 5 H (0-4) /hpf Urine Mucus Moderate H (None) /hpf - Radiology Data Radiology results: report reviewed, image reviewed 2 views of the abdomen are obtained. Report reviewed in its entirety. Impression by Dr. Deluna shows nonacute abdomen. No adverse change compared to old exam. CT abdomen and pelvis was obtained with contrast. Report was reviewed in its entirety. Impression by Dr. Valdez shows no evidence of acute abdominal pelvic process. Mild hepatic fatty infiltration. Disposition Clinical Impression: Acute low back pain Disposition: HOME SELF-CARE Condition: Good Instructions (If sedation given, give patient instructions): Acute Low Back Pain (ED) Additional Instructions: Take medications as directed. Follow-up with your acid painter for recheck as soon as possible. Return to the emergency department for any new, worsening, or concerning symptoms. Prescriptions: Ibuprofen [Motrin] 600 mg PO Q8HR PRN #30 tab PRN Reason: Pain Is patient prescribed a controlled substance at d/c from ED?: No Referrals: Yue Roca MD [Primary Care Provider] - 1-2 days Time of Disposition: 22:56
[2019-02-18 21:42] LABS: Basophils % (A) 0 %; Eosinophils # (A) 0.2 k/uL (0-0.7); Eosinophils % (A) 2 %; HCT 41.6 % (34.0-46.0); HGB 13.6 gm/dL (11.4-16.0); Lymphocytes # (A) 3.1 k/uL (1.0-4.8); Lymphocytes % (A) 38 %; MCH 28.6 pg (25.0-35.0); MCHC 32.6 g/dL (31.0-37.0); MCV 87.7 fL (80.0-100.0); Mean Platelet Volume 6.5; Monocytes # (A) 0.4 k/uL (0-1.0); Monocytes % (A) 4 %; Neutrophils # (A) 4.5 k/uL (1.3-7.7); Neutrophils % (A) 54 %; Platelet Count 320 k/uL (150-450); RBC 4.75 m/uL (3.80-5.40); WBC 8.3 k/uL (3.8-10.6)
[2019-02-18 21:43] LABS: Appearance,Urine Clear (Clear); Bilirubin,Urine Negative (Negative); Blood,Urine Negative (Negative); Color,Urine Yellow; Glucose,Urine (UA) Negative (Negative); Ketones,Urine Trace (Negative); Leukocyte Esterase,Urine Small (Negative); Mucus,Urine Moderate /hpf; Nitrite,Urine Negative (Negative); Protein,Urine Trace (Negative); RBC,Urine 5 /hpf (0-5); Specific Gravity,Urine 1.038 (1.001-1.035); Squamous Epithelial Cell,Urine 5 /hpf (0-4)
--- NOTE | 2019-02-18 21:50 | XR ---
EXAMINATION TYPE: XR KUB DATE OF EXAM: 02/18/2019 COMPARISON: 08/11/2012 HISTORY: Abdominal pain TECHNIQUE: 2 views upright FINDINGS: There is no sign of intestinal obstruction or pneumoperitoneum. Fecal pattern is normal. Th ere are clips from tubal ligation. Lung bases are clear. There are no pathologic calcifications over the kidneys. There is phlebolith in the pelvis on the left side. IMPRESSION: Nonacute abdomen. No adverse change compared to old exam.
[2019-02-18 21:53] LABS: ALT 27 U/L (9-52); AST 29 U/L (14-36); Albumin 4.3 g/dL (3.5-5.0); Alkaline Phosphatase 63 U/L (38-126); Amylase 46 U/L (30-110); Anion Gap 8 mmol/L; Blood Urea Nitrogen 11 mg/dL (7-17); Carbon Dioxide 25 mmol/L (22-30); Chloride 107 mmol/L (98-107); Glucose 82 mg/dL (74-99); Lipase 45 U/L (23-300); Potassium 4.3 mmol/L (3.5-5.1); Sodium 140 mmol/L (137-145); Total Bilirubin 0.4 mg/dL (0.2-1.3); Total Protein 7.2 g/dL (6.3-8.2)
--- NOTE | 2019-02-18 22:51 | CT ---
EXAM: CT Abdomen and Pelvis With Intravenous Contrast CLINICAL HISTORY: Reason: Pain TECHNIQUE: Axial computed tomography images of the abdomen and pelvis with intravenous contrast. CTDI is 46.2 mGy and DLP is 1952.4 mGy-cm. This CT exam was performed using one or more of the following dose reduction techniques: automated exposure control, adjustment of the mA and/or kV according to patient size, and/or use of iterative reconstruction technique. COMPARISON: Abdominal radiographs 08/11/2012 FINDINGS: Lung bases: Imaged lung bases are clear. ABDOMEN: Liver: Evidence of mild hepatic fatty infiltration. No focal hepatic abnormalities. Gallbladder and bile ducts: Gallbladder is unremarkable. No evidence of biliary dilatation. No calcified stones. Pancreas: Pancreas is unremarkable. Spleen: Spleen is unremarkable. Adrenals: No adrenal masses. Kidneys and ureters: Bilateral symmetric renal enhancement. Small approximately 1.1 cm right upper pole renal cyst. No evidence of renal calculi or hydronephrosis. Stomach and bowel: No evidence of bowel obstruction or pneumoperitoneum. PELVIS: Appendix: Normal-appearing appendix identified in the right lower quadrant. Bladder: Urinary bladder is unremarkable. No bladder calculi. Reproductive: Metallic clips in the pelvis bilaterally likely related to prior tubal ligation. ABDOMEN and PELVIS: Intraperitoneal space: See above. Bones/joints: No acute bony abnormalities. Vasculature: No Abdominal Aortic Aneurysm. Lymph nodes: No evidence of lymphadenopathy. IMPRESSION: No evidence of acute abdominal-pelvic process. Mild hepatic fatty infiltration.
[2019-02-18] MEDS ORDERED: HYDROmorphone 2 MG/ML 1 ML SYRINGE IVP STA (22:55)
[2019-02-18 23:41] VITALS: BP 122/93; PULSE 78; RESP 18
== END 2019-02-18 23:39 | disposition home or self-care (01) ==
LOC: EC 18:20
DX: M54.5 Low back pain (principal); K76.0 Fatty (change of) liver, not elsewhere classified; R10.32 Left lower quadrant pain; R50.9 Fever, unspecified; R11.0 Nausea; G89.29 Other chronic pain; F32.9 Major depressive disorder, single episode, unspecified; F41.9 Anxiety disorder, unspecified; Z87.891 Personal history of nicotine dependence; Z91.040 Latex allergy status; Z79.51 Long term (current) use of inhaled steroids; Z79.899 Other long term (current) drug therapy; Z87.442 Personal history of urinary calculi
CPT/HCPCS: 36415; 80053; 82150; 83690; 85025; 81001; 74018; 74177; 99284; 96374; 96375 ×2; 96376; 96361; J1170 ×2; J2405; J1885; Q9967

== ENCOUNTER → 2019-08-20 | Outpatient (CLI) | payer OTHER ==
--- NOTE | 2019-08-20 14:32 | MM ---
Reason for exam: additional evaluation requested from prior study. Last mammogram was performed 2 years and 6 months ago. History: Benign MG stereo VAD BX LT of the left breast, February 21, 2017. Took hormonal contraceptives for 1 year beginning at age 31. Physical Findings: Nurse did not find any significant physical abnormalities on exam. MG 3D Diag Mammo W/Cad CHANA Bilateral CC and MLO view(s) were taken. Prior study comparison: February 13, 2017, left breast MG work up mamm w CAD LT. February 13, 2017, bilateral MG screening mammo w CAD. The breast tissue is heterogeneously dense. This may lower the sensitivity of mammography. Nodular density left breast persists. Ultrasound is recommended. These results were verbally communicated with the patient and result sheet given to the patient on 08/20/19. ASSESSMENT: Incomplete: need additional imaging evaluation, BI-RAD 0 RECOMMENDATION: Ultrasound of the left breast.
--- NOTE | 2019-08-20 14:33 | USB ---
Reason for exam: additional evaluation requested from abnormal screening. History: Benign MG stereo VAD BX LT of the left breast, February 21, 2017. Took hormonal contraceptives for 1 year beginning at age 31. US Breast LT Let complete breast ultrasound includes all four quadrants, the retroareolar region and axilla. Finding demonstrates a 0.6 x 0.5 x 0.6cm mixed lesion at 5 o'clock. These results were verbally communicated with the patient and result sheet given to the patient on 08/20/19. ASSESSMENT: Benign, BI-RAD 2 RECOMMENDATION: Routine screening mammogram of both breasts in 1 year.
== END | disposition home or self-care (01) ==
LOC: RADMAMWWP 13:40
PROVIDERS: ATTEND Obstetrics & Gynecology
DX: R92.8 Other abnormal and inconclusive findings on diagnostic imaging of breast (principal)
CPT/HCPCS: 77066; 76641; G0279; 77062

== ENCOUNTER 2019-08-24 20:43 | Emergency (ER) | payer OTHER ==
[2019-08-24 20:51] VITALS: BP 138/82; PULSE 114; RESP 20; TEMP 98.1
[2019-08-24] MEDS ORDERED: SODIUM CHLORIDE 0.9% 500 ML 500 ML IV STA (22:06)
[2019-08-24] MEDS ORDERED: ONDANSETRON 4 MG/2 ML VIAL IVP STA ×2 (22:06→22:11)
[2019-08-24] MEDS ORDERED: SODIUM CHLORIDE 0.9% 1,000 ML IV ONE (22:11)
[2019-08-24] MEDS ORDERED: KETOROLAC 30 MG/ML 1 ML VIAL IVP STA (22:11)
[2019-08-24 22:28] LABS: Basophils # (A) 0.1 k/uL (0-0.2); Basophils % (A) 2 %; Eosinophils # (A) 0.2 k/uL (0-0.7); Eosinophils % (A) 2 %; HCT 42.1 % (34.0-46.0); HGB 14.1 gm/dL (11.4-16.0); Lymphocytes # (A) 3.2 k/uL (1.0-4.8); Lymphocytes % (A) 35 %; MCH 29.3 pg (25.0-35.0); MCHC 33.5 g/dL (31.0-37.0); MCV 87.6 fL (80.0-100.0); Mean Platelet Volume 6.6; Monocytes # (A) 0.4 k/uL (0-1.0); Monocytes % (A) 4 %; Neutrophils # (A) 5.1 k/uL (1.3-7.7); Neutrophils % (A) 56 %; Platelet Count 307 k/uL (150-450); RBC 4.81 m/uL (3.80-5.40); RDW 12.5 % (11.5-15.5); WBC 9.1 k/uL (3.8-10.6)
[2019-08-24 22:31] LABS: Appearance,Urine Cloudy (Clear); Bilirubin,Urine Negative (Negative); Blood,Urine Negative (Negative); Color,Urine Yellow; Glucose,Urine (UA) Negative (Negative); Ketones,Urine Negative (Negative); Leukocyte Esterase,Urine Negative (Negative); Mucus,Urine Occasional /hpf; Nitrite,Urine Negative (Negative); Protein,Urine Negative (Negative); RBC,Urine 1 /hpf (0-5); Specific Gravity,Urine 1.012 (1.001-1.035); Squamous Epithelial Cell,Urine 6 /hpf (0-4); Urobilinogen,Urine <2.0 mg/dL (<2.0); WBC,Urine 2 /hpf (0-5)
[2019-08-24 22:36] LABS: African American GFR (CKD) >90 (>60 ml/min/1.73 sqM); Albumin 4.6 g/dL (3.5-5.0); Anion Gap 10 mmol/L; Calcium 9.8 mg/dL (8.4-10.2); Carbon Dioxide 25 mmol/L (22-30); Chloride 104 mmol/L (98-107); Glucose 99 mg/dL (74-99); Non-African American GFR(CKD) 88 (>60 ml/min/1.73 sqM); Sodium 139 mmol/L (137-145); Total Bilirubin 0.6 mg/dL (0.2-1.3)
--- NOTE | 2019-08-24 22:37 | ED ---
Abdominal Pain HPI - General Chief Complaint: Abdominal Pain Stated Complaint: R side pain Time Seen by Provider: 08/24/19 21:49 Source: patient Mode of arrival: ambulatory Limitations: no limitations - History of Present Illness Initial Comments: 39-year-old female patient presents to the emergency department today for evaluation of right upper quadrant abdominal pain with radiation through to her right shoulder. Patient states pain started a little over a week ago. Patient states the pain has been constant. States it does seem to worsen after eating. She denies any nausea or vomiting. Denies constipation or diarrhea. Denies fever or chills. She has not had previous surgery to the abdomen. Does report tubal ligation. Denies any hematuria, dysuria, urinary frequency, urinary urgency. States she has had some loose stool but no diarrhea. She denies any chest pain or shortness of breath. Patient denies any recent rash, numbness, tingling, dizziness, weakness, headache, visual changes, or any other complaints. - Related Data Home Medications Medication Instructions Recorded Confirmed Pantoprazole Sodium 40 mg PO DAILY 01/26/16 02/18/19 Albuterol Inhaler [Ventolin Hfa 2 puff INHALATION RT-Q6H PRN 03/26/17 02/18/19 Inhaler] Sertraline [Zoloft] 50 mg PO HS 03/26/17 02/18/19 Hydrocodone/Acetaminophen [[place] 1 tab PO TID PRN 06/19/17 02/18/19 7.5-325] Budesonide/Formoterol Fumarate 2 puff INHALATION RT-BID 08/15/18 02/18/19 [Symbicort 160-4.5 Mcg Inhaler] Famotidine [Pepcid] 20 mg PO HS 12/08/18 02/18/19 Ondansetron HCl [Zofran] 8 mg PO BID PRN 12/08/18 02/18/19 Previous Rx's Medication Instructions Recorded Ibuprofen [Motrin] 600 mg PO Q8HR PRN #30 tab 02/18/19 Allergies Allergy/AdvReac Type Severity Reaction Status Date / Time latex Allergy Rash/Hives Verified 08/24/19 20:51 Review of Systems ROS Statement: Those systems with pertinent positive or pertinent negative responses have been documented in the HPI. ROS Other: All systems not noted in ROS Statement are negative. Past Medical History Past Medical History: Hypertension Additional Past Medical History / Comment(s): marijuana card for chronic pain and nausea History of Any Multi-Drug Resistant Organisms: None Reported Past Surgical History: Orthopedic Surgery, Tonsillectomy, Tubal Ligation Past Anesthesia/Blood Transfusion Reactions: No Reported Reaction Past Psychological History: ADD/ADHD, Anxiety, Bipolar, Depression Smoking Status: Former smoker Past Alcohol Use History: Rare Past Drug Use History: Marijuana - Past Family History Mother Family Medical History: No Reported History General Exam Limitations: no limitations General appearance: alert, in no apparent distress, other (This is a well- developed, well-nourished adult female patient in no acute distress. Vital signs upon presentation are temperature 98.1 degrees and, pulse 114, respirations 20, blood pressure 130/82,) Eye exam: Present: normal appearance, PERRL, EOMI. Absent: scleral icterus, c onjunctival injection, periorbital swelling ENT exam: Present: normal exam, normal oropharynx, mucous membranes moist Respiratory exam: Present: normal lung sounds bilaterally. Absent: respiratory distress, wheezes, rales, rhonchi, stridor Cardiovascular Exam: Present: regular rate, normal rhythm, normal heart sounds. Absent: systolic murmur, diastolic murmur, rubs, gallop, clicks GI/Abdominal exam: Present: soft, tenderness (Right upper quadrant tenderness), normal bowel sounds. Absent: distended, guarding, rebound, rigid Neurological exam: Present: alert, oriented X3, CN II-XII intact Psychiatric exam: Present: normal affect, normal mood Skin exam: Present: warm, dry, intact, normal color. Absent: rash Course Vital Signs 08/24/19 20:47 Temperature 98.1 F Pulse Rate 114 H Respiratory 20 Rate Blood Pressure 138/82 O2 Sat by Pulse 20 L Oximetry Medical Decision Making - Medical Decision Making 39-year-old female patient presents to the emergency department today for evaluation of right upper quadrant pain and nausea. Patient states symptoms are present for a week. Physical examination does reveal mild right upper quadrant tenderness. Remainder of abdomen is nontender and soft. Labs reviewed and are unremarkable. Ultrasound was obtained and showed no evidence for acute cholecystitis or cholelithiasis. Patient be discharged home at this time to follow-up with her primary care physician one to 2 days. She is urged to discuss possible HIDA scan. Return parameters were discussed in detail. She verbalizes understanding and agrees with this plan. - Lab Data Result diagrams: 08/24/19 21:30 08/24/19 21:30 Lab Results 08/24/19 08/24/19 08/24/19 Range/Units 21:30 21:30 21:30 WBC 9.1 (3.8-10.6) k/uL RBC 4.81 (3.80-5.40) m/uL Hgb 14.1 (11.4-16.0) gm/dL Hct 42.1 (34.0-46.0) % MCV 87.6 (80.0-100.0) fL MCH 29.3 (25.0-35.0) pg MCHC 33.5 (31.0-37.0) g/dL RDW 12.5 (11.5-15.5) % Plt Count 307 (150-450) k/uL Neutrophils % 56 % Lymphocytes % 35 % Monocytes % 4 % Eosinophils % 2 % Basophils % 2 % Neutrophils # 5.1 (1.3-7.7) k/uL Lymphocytes # 3.2 (1.0-4.8) k/uL Monocytes # 0.4 (0-1.0) k/uL Eosinophils # 0.2 (0-0.7) k/uL Basophils # 0.1 (0-0.2) k/uL Sodium 139 (137-145) mmol/L Potassium 4.6 (3.5-5.1) mmol/L Chloride 104 (98-107) mmol/L Carbon Dioxide 25 (22-30) mmol/L Anion Gap 10 mmol/L BUN 8 (7-17) mg/dL Creatinine 0.84 (0.52-1.04) mg/dL Est GFR (CKD-EPI)AfAm >90 (>60 ml/min/1.73 sqM) Est GFR (CKD-EPI)NonAf 88 (>60 ml/min/1.73 sqM) Glucose 99 (74-99) mg/dL Calcium 9.8 (8.4-10.2) mg/dL Total Bilirubin 0.6 (0.2-1.3) mg/dL AST 32 (14-36) U/L ALT 20 (9-52) U/L Alkaline Phosphatase 45 (38-126) U/L Total Protein 7.7 (6.3-8.2) g/dL Albumin 4.6 (3.5-5.0) g/dL Lipase 46 (23-300) U/L Urine Color Yellow Urine Appearance Cloudy H (Clear) Urine pH 5.0 (5.0-8.0) Ur Specific [place] 1.012 (1.001-1.035) Urine Protein Negative (Negative) Urine Glucose (UA) Negative (Negative) Urine Ketones Negative (Negative) Urine Blood Negative (Negative) Urine Nitrite Negative (Negative) Urine Bilirubin Negative (Negative) Urine Urobilinogen <2.0 (<2.0) mg/dL Ur Leukocyte Esterase Negative (Negative) Urine RBC 1 (0-5) /hpf Urine WBC 2 (0-5) /hpf Ur Squamous Epith Cells 6 H (0-4) /hpf Urine Mucus Occasional H (None) /hpf - Radiology Data Radiology results: report reviewed Ultrasound of the gallbladder was obtained. Report reviewed in its entirety. Impression by Dr. Deal shows no cholelithiasis or sonographic evidence of acute cholecystitis. Hepatic steatosis. Disposition Clinical Impression: Abdominal pain Disposition: HOME SELF-CARE Condition: Good Is patient prescribed a controlled substance at d/c from ED?: No Referrals: Yue Roca MD [Primary Care Provider] - 1-2 days
[2019-08-24 22:43] LABS: ALT 20 U/L (9-52); AST 32 U/L (14-36); Alkaline Phosphatase 45 U/L (38-126); Blood Urea Nitrogen 8 mg/dL (7-17); Potassium 4.6 mmol/L (3.5-5.1); Total Protein 7.7 g/dL (6.3-8.2)
[2019-08-24] MEDS ORDERED: HYDROmorphone 1 MG/ML 1 ML SYRINGE ONE (23:45)
--- NOTE | 2019-08-25 08:18 | US ---
EXAM: US Abdomen Limited, Gallbladder CLINICAL HISTORY: RUQ pain x 10 days. TECHNIQUE: Real-time ultrasound of the right upper quadrant with image documentation. COMPARISON: CT abdomen and pelvis 02/18/2019. FINDINGS: Liver: Hepatic steatosis. Liver measures 15.1 cm. Gallbladder: Unremarkable. No gallstones. Common bile duct: Common bile duct measures 4 mm. No stones. No dilation. Pancreas: Pancreas is obscured by bowel gas. Right kidney: Right kidney measures 10 cm in long axis. Right renal cyst measuring up to 1.4 cm is poorly characterized on this examination. IMPRESSION: 1. No cholelithiasis or sonographic evidence of acute cholecystitis. 2. Hepatic steatosis.
== END 2019-08-25 00:50 | disposition home or self-care (01) ==
LOC: EC 20:43
DX: R10.11 Right upper quadrant pain (principal); R11.0 Nausea; I10 Essential (primary) hypertension; F41.9 Anxiety disorder, unspecified; F31.9 Bipolar disorder, unspecified; Z79.899 Other long term (current) drug therapy; Z91.040 Latex allergy status; Z87.891 Personal history of nicotine dependence
CPT/HCPCS: 36415; 80053; 83690; 85025; 81001; 76705; 99284; 96374; 96375; 96361; J2405; J1885

== ENCOUNTER → 2019-09-11 | Outpatient (CLI) | payer OTHER ==
--- NOTE | 2019-09-11 15:14 | NM ---
EXAMINATION TYPE: NM hepatobiliary w EF DATE OF EXAM: 09/11/2019 COMPARISON: NONE INDICATION: Right upper quadrant pain TECHNIQUE: After the intravenous administration of 5.4 mCi Tc 99m Mebrofenin hepatobiliary scintigrap hy is performed. Images were obtained immediately post injection. FINDINGS: There is prompt uptake and excretion of radiotracer by the liver. Extrahepatic ducts are identified at 11 minutes. The gallbladder is visualized within 11 minutes. Small bowel activity is noted within 60 minutes. At one hour 8 ounces of oral ensure plus is given to mimic CCK and gallbladder ejection fraction is c alculated at 60 %, which is in the normal range. (Normal >35% and <80%.). IMPRESSION: 1. Normal hepatobiliary scan
== END | disposition home or self-care (01) ==
LOC: RADNMMAIN 12:54
PROVIDERS: ATTEND Internal Medicine
DX: R10.11 Right upper quadrant pain (principal)
CPT/HCPCS: 78226; A9537

== ENCOUNTER 2020-02-14 09:33 | Emergency (ER) | payer OTHER ==
[2020-02-14 09:58] VITALS: TEMP 98.1
[2020-02-14] MEDS ORDERED: HYDROcodone/APAP 5-325MG 1 EACH TAB PO STA (10:14)
--- NOTE | 2020-02-14 10:21 | ED ---
General Adult HPI - General Chief complaint: Extremity Injury, Upper Stated complaint: Fall, R wrist Injury Time Seen by Provider: 02/14/20 10:11 Source: patient, RN notes reviewed Mode of arrival: ambulatory Limitations: no limitations - History of Present Illness Initial comments: 39-year-old female presents to the emergency department for a chief complaint of right wrist pain. Patient states that her right foot gives out on her at times because of a history of 4 surgeries. Patient states this is normal for her. Patient states this happened today and she fell backwards onto her right wrist. Patient thinks it is sprained or broken. States it is very painful to move her right wrist. She did not hit her head. She did not sustain any other injuries. Patient denies any numbness or tingling in the right hand.Patient has no other complaints at this time including shortness of breath, chest pain, abdominal pain, nausea or vomiting, headache, or visual changes. - Related Data Home Medications Medication Instructions Recorded Confirmed Pantoprazole Sodium 40 mg PO DAILY 01/26/16 02/18/19 Albuterol Inhaler (Mhu) [Ventolin 2 puff INHALATION RT-Q6H PRN 03/26/17 02/18/19 Hfa Inhaler] Sertraline [Zoloft] 50 mg PO HS 03/26/17 02/18/19 Hydrocodone/Acetaminophen [[place] 1 tab PO TID PRN 06/19/17 02/18/19 7.5-325] Budesonide/Formoterol Fumarate 2 puff INHALATION RT-BID 08/15/18 02/18/19 [Symbicort 160-4.5 Mcg Inhaler] Famotidine [Pepcid] 20 mg PO HS 12/08/18 02/18/19 Ondansetron HCl [Zofran] 8 mg PO BID PRN 12/08/18 02/18/19 Previous Rx's Medication Instructions Recorded Ibuprofen [Motrin] 600 mg PO Q8HR PRN #30 tab 02/18/19 Allergies Allergy/AdvReac Type Severity Reaction Status Date / Time latex Allergy Rash/Hives Verified 02/14/20 09:58 Review of Systems ROS Statement: Those systems with pertinent positive or pertinent negative responses have been documented in the HPI. ROS Other: All systems not noted in ROS Statement are negative. Past Medical History Past Medical History: Hypertension Additional Past Medical History / Comment(s): marijuana card for chronic pain and nausea History of Any Multi-Drug Resistant Organisms: None Reported Past Surgical History: Orthopedic Surgery, Tonsillectomy, Tubal Ligation Past Anesthesia/Blood Transfusion Reactions: No Reported Reaction Past Psychological History: ADD/ADHD, Anxiety, Bipolar, Depression Smoking Status: Former smoker Past Alcohol Use History: Rare Past Drug Use History: Marijuana - Past Family History Mother Family Medical History: No Reported History General Exam Limitations: no limitations General appearance: alert, in no apparent distress Head exam: Present: atraumatic, normocephalic, normal inspection Eye exam: Present: normal appearance, PERRL, EOMI. Absent: scleral icterus, conjunctival injection, periorbital swelling ENT exam: Present: normal exam, mucous membranes moist Neck exam: Present: normal inspection, full ROM. Absent: tenderness, meningismus, lymphadenopathy Respiratory exam: Present: normal lung sounds bilaterally. Absent: respiratory distress, wheezes, rales, rhonchi, stridor Cardiovascular Exam: Present: regular rate, normal rhythm, normal heart sounds. Absent: systolic murmur, diastolic murmur, rubs, gallop, clicks Extremities exam: Present: tenderness (Tenderness to the distal right forearm generalized in nature. No scaphoid tenderness. No tenderness in the right hand, proximal forearm, humerus.), normal capillary refill (Capillary refill less than 2 seconds, radial pulses 2+.), joint swelling (Patient has mild edema noted to the dorsal aspect of the right distal forearm.), other (Sensation intact in the right upper extremity.). Absent: full ROM (Patient has limited range of motion of the right wrist secondary to pain. Patient is able to move all fingers in the right hand. Patient is able to extend the right wrist however this is limited from pain.), pedal edema, calf tenderness Neurological exam: Present: alert, oriented X3 Course Vital Signs 02/14/20 09:55 Temperature 98.1 F Pulse Rate 71 Respiratory 16 Rate Blood Pressure 149/90 O2 Sat by Pulse 98 Oximetry Procedures - Orthopedic Splinting/Casting Injury #1 Side: right Upper Extremity Injury Location: wrist Upper Extremity Immobilizer: volar splint Additional Comments: Neurovascular status intact Medical Decision Making - Medical Decision Making X-ray of the right wrist and forearm shows a minimally displaced comminuted fracture of the distal right radius with intra-articular extension. Neurovascular status intact. Patient was placed in a volar wrist splint. She was given [place] for pain, states she is not driving home. Ring was cut off the right fourth digit. It was not able to be removed manually. Patient will be given Tylenol 3 for home. She will follow up with orthopedics. She will return for any worsening M Suraj. Disposition Clinical Impression: Wrist fracture, right Disposition: HOME SELF-CARE Condition: Good Instructions (If sedation given, give patient instructions): Wrist Fracture in Adults (ED) Additional Instructions: Take Tylenol 3 for pain. Do not take this while driving. Take Zofran for nausea. Follow-up with orthopedics by calling tomorrow. Keep splint dry and in place. Return to the emergency department for any worsening symptoms. Is patient prescribed a controlled substance at d/c from ED?: No Referrals: Yue Roca MD [Primary Care Provider] - 1-2 days Tristian Luna DO [Doctor of Osteopathic Medicine] - 1-2 days Time of Disposition: 10:44
--- NOTE | 2020-02-14 10:39 | XR ---
EXAMINATION TYPE: XR wrist limited RT , 2 VIEWS DATE OF EXAM ORDERED: 02/14/2020 HISTORY: fall, pain, dorsal edema. COMPARISON: None. FINDINGS: There is a comminuted fracture of the distal radius. This is minimally displaced. No defin ite associated ulnar fracture is seen. The fracture extends intra-articularly but I do not see a defi nite step. IMPRESSION: MINIMALLY DISPLACED, COMMINUTED FRACTURE THE DISTAL RIGHT RADIUS WITH INTRA-ARTICULAR ARTICULAR EXTEN ARNALDO. CODE A: INITIAL ENCOUNTER FOR CLOSED FRACTURE.
--- NOTE | 2020-02-14 10:40 | XR ---
EXAMINATION TYPE: XR forearm RT , 2 VIEWS DATE OF EXAM ORDERED: 02/14/2020 HISTORY: fall, pain, dorsal edema. COMPARISON: None. FINDINGS: Once again, a comminuted, minimally displaced, intra-articular fracture of the distal righ t radius is identified. No definite ulnar fracture is seen. IMPRESSION: MINIMALLY DISPLACED, COMMINUTED, INTRA-ARTICULAR FRACTURE DISTAL RADIUS. CODE A: INITIAL ENCOUNTER FOR CLOSED FRACTURE.
[2020-02-14] MEDS ORDERED: ACET/COD 300 MG/30 MG STARTER PACK 6 TAB BTL PO STA (10:41)
[2020-02-14] MEDS ORDERED: ONDANSETRON 4 MG ODT STARTER PACK 2 TAB BTL PO STA (10:41)
[2020-02-14 10:54] VITALS: BP 138/70; PULSE 70; RESP 18
== END 2020-02-14 10:53 | disposition home or self-care (01) ==
LOC: EC 09:33
DX: S52.571A Other intraarticular fracture of lower end of right radius, initial encounter for closed fracture (principal); I10 Essential (primary) hypertension; F41.9 Anxiety disorder, unspecified; F31.9 Bipolar disorder, unspecified; Z79.899 Other long term (current) drug therapy; Z79.51 Long term (current) use of inhaled steroids; Z91.040 Latex allergy status; Z87.891 Personal history of nicotine dependence; W19.XXXA Unspecified fall, initial encounter
CPT/HCPCS: 73090; 73100; 99283; 29125; S0119

== ENCOUNTER 2020-05-01 06:12 | Emergency (ER) | payer OTHER ==
[2020-05-01] MEDS ORDERED: SODIUM CHLORIDE 0.9% 500 ML 500 ML IV STA (06:32)
[2020-05-01] MEDS ORDERED: SODIUM CHLORIDE 0.9% 500 ML 500 ML IV ONE (06:50)
[2020-05-01 06:55] LABS: Basophils # (A) 0.1 k/uL (0-0.2); Basophils % (A) 1 %; Eosinophils # (A) 0.1 k/uL (0-0.7); Eosinophils % (A) 1 %; HCT 43.9 % (34.0-46.0); HGB 14.7 gm/dL (11.4-16.0); Lymphocytes # (A) 4.9 k/uL (1.0-4.8); Lymphocytes % (A) 30 %; MCH 29.3 pg (25.0-35.0); MCHC 33.5 g/dL (31.0-37.0); MCV 87.3 fL (80.0-100.0); Mean Platelet Volume 7.2; Monocytes # (A) 0.5 k/uL (0-1.0); Monocytes % (A) 3 %; Neutrophils # (A) 10.3 k/uL (1.3-7.7); Neutrophils % (A) 64 %; Platelet Count 396 k/uL (150-450); RBC 5.03 m/uL (3.80-5.40); RDW 12.9 % (11.5-15.5); WBC 16.1 k/uL (3.8-10.6)
[2020-05-01 07:00] LABS: Appearance,Urine Cloudy (Clear); Bacteria,Urine Rare /hpf; Bilirubin,Urine Negative (Negative); Blood,Urine Negative (Negative); Color,Urine Light Yellow; Glucose,Urine (UA) Negative (Negative); Hyaline Casts,Urine 4 /lpf (0-2); Ketones,Urine Negative (Negative); Leukocyte Esterase,Urine Negative (Negative); Mucus,Urine Rare /hpf; Nitrite,Urine Negative (Negative); Protein,Urine 1+ (Negative); RBC,Urine <1 /hpf (0-5); Specific Gravity,Urine 1.004 (1.001-1.035); Squamous Epithelial Cell,Urine 3 /hpf (0-4); Urobilinogen,Urine <2.0 mg/dL (<2.0); WBC,Urine 2 /hpf (0-5)
[2020-05-01] MEDS ORDERED: ONDANSETRON ODT 4 MG TAB PO STA (07:04)
[2020-05-01 07:07] LABS: Amphetamine Screen,Urine Detected (NotDetected); Barbiturate Screen,Urine Not Detected (NotDetected); Benzodiazepines Screen,Urine Not Detected (NotDetected); Cocaine Screen,Urine Detected (NotDetected); Methadone Screen, Urine Not Detected (NotDetected); Opiate Screen,Urine Detected (NotDetected); Oxycodone Screen, Urine Not Detected (NotDetected); Phencyclidine Screen,Urine Not Detected (NotDetected); Tricyclic Antidepressant,Urine Not Detected (NotDetected); Urn Cannabinoid Scrn Detected (NotDetected)
[2020-05-01 07:09] LABS: ALT 32 U/L (4-34); AST 38 U/L (14-36); Acetaminophen <10.0 ug/mL; African American GFR (CKD) 77 (>60 ml/min/1.73 sqM); Albumin 5.1 g/dL (3.5-5.0); Alkaline Phosphatase 80 U/L (38-126); Anion Gap 16 mmol/L; Blood Urea Nitrogen 5 mg/dL (7-17); Calcium 9.6 mg/dL (8.4-10.2); Carbon Dioxide 19 mmol/L (22-30); Chloride 105 mmol/L (98-107); Glucose 187 mg/dL (74-99); Non-African American GFR(CKD) 67 (>60 ml/min/1.73 sqM); Potassium 3.9 mmol/L (3.5-5.1); Salicylate <1.0 mg/dL; Sodium 140 mmol/L (137-145); Total Bilirubin 0.5 mg/dL (0.2-1.3); Total Protein 8.3 g/dL (6.3-8.2)
--- NOTE | 2020-05-01 07:25 | ED ---
General Adult HPI - General Chief complaint: Overdose Stated complaint: Overdose Time Seen by Provider: 05/01/20 06:19 Source: patient, EMS, RN notes reviewed, old records reviewed Mode of arrival: EMS Limitations: no limitations - History of Present Illness Initial comments: 39-year-old female patient brought in the emergency department by EMS after a fall from a private residence. Physical residence and there is reportedly multiple overdoses. All were positive neck and reportedly. Patient reports that she has been drinking alcohol and smoking marijuana today but she denies any IV drugs. Patient reports that she feels fine and is denying any acute complaints at this time. Systemic: Pt denies fatigue, fever/chills, rash. Pt denies weakness, night sweats, weight loss. Neuro: Pt denies headache, visual disturbances, syncope or pre-syncope. HEENT: Pt denies ocular discharge or irritation, otalgia, rhinorrhea, pharyngitis or notable lymphadenopathy. Cardiopulmonary: Pt denies chest pain, SOB, heart palpitations, dyspnea on exertion. Abdominal/GI: Pt denies abdominal pain, n/v/d. : Pt denies dysuria, burning w/ urination, frequency/urgency. Denies new onset urinary or bowel incontinence. MSK: Pt denies myalgia, loss of strength or function in extremities. Neuro: Pt denies new onset weakness, paresthesias. - Related Data Home Medications Medication Instructions Recorded Confirmed Pantoprazole Sodium 40 mg PO DAILY 01/26/16 02/18/19 Albuterol Inhaler (Mhu) [Ventolin 2 puff INHALATION RT-Q6H PRN 03/26/17 02/18/19 Hfa Inhaler] Sertraline [Zoloft] 50 mg PO HS 03/26/17 02/18/19 Hydrocodone/Acetaminophen [[place] 1 tab PO TID PRN 06/19/17 02/18/19 7.5-325] Budesonide/Formoterol Fumarate 2 puff INHALATION RT-BID 08/15/18 02/18/19 [Symbicort 160-4.5 Mcg Inhaler] Famotidine [Pepcid] 20 mg PO HS 12/08/18 02/18/19 Ondansetron HCl [Zofran] 8 mg PO BID PRN 12/08/18 02/18/19 Previous Rx's Medication Instructions Recorded Ibuprofen [Motrin] 600 mg PO Q8HR PRN #30 tab 02/18/19 Allergies Allergy/AdvReac Type Severity Reaction Status Date / Time latex Allergy Rash/Hives Verified 02/14/20 09:58 Review of Systems ROS Statement: Those systems with pertinent positive or pertinent negative responses have been documented in the HPI. ROS Other: All systems not noted in ROS Statement are negative. Past Medical History Past Medical History: Hypertension Additional Past Medical History / Comment(s): marijuana card for chronic pain and nausea History of Any Multi-Drug Resistant Organisms: None Reported Past Surgical History: Orthopedic Surgery, Tonsillectomy, Tubal Ligation Past Anesthesia/Blood Transfusion Reactions: No Reported Reaction Past Psychological History: ADD/ADHD, Anxiety, Bipolar, Depression Smoking Status: Former smoker Past Alcohol Use History: Heavy Past Drug Use History: Marijuana - Past Family History Mother Family Medical History: No Reported History General Exam - General Exam Comments Initial Comments: Constitutional: NAD, AOX3, Pt has pleasant affect. HEENT: NC/AT, trachea midline, neck supple, no lymphadenopathy. Posterior pharynx non erythematous, without exudates. External ears appear normal, without discharge. Mucous membranes moist. Eyes PERRLA, EOM intact. There is no scleral icterus. No pallor noted. Cardiopulmonary: RRR, no murmurs, rubs or gallops, no JVD noted. Lungs CTAB in anterior and posterior lindsay. No peripheral edema. Abdominal exam: Abdomen soft and non-distended. Abdomen non-tender to palpation in all 4 quadrants. Bowel sounds active in LLQ. No hepatosplenomegaly. No ecchymosis Neuro: CN II-XII intact. No nuchal rigidity. No raccon eyes, no lenz sign. No cervical spinal tenderness. MSK: Full active ROM in upper and lower extremities, 5/5 stregnth. Limitations: no limitations Course Vital Signs 05/01/20 05/01/20 05/01/20 06:14 07:15 07:34 Temperature 97.7 F 97.9 F Pulse Rate 122 H 93 Respiratory 16 18 Rate Blood Pressure 144/97 126/88 O2 Sat by Pulse 96 96 Oximetry Medical Decision Making - Medical Decision Making 39-year-old female patient presented to ED for overdose. Patient she declined doing drugs. She did admit that she is using narcotic pain medications alcohol. She is denying any acute complaints she was provided Narcan in route to Hospital. Physical exam was not impressive. Laboratory investigations are obt ained. Displayed mild leukocytosis. Tox screen was positive for multiple drugs. Patient is alert and oriented 3 and competent to make medical decisions. We'll discharge for follow-up with primary care provider will return to ER if condition worsens. Case discussed in depth with Dr. Dove. - Lab Data Result diagrams: 05/01/20 06:45 05/01/20 06:45 Lab Results 05/01/20 05/01/20 05/01/20 Range/Units 06:45 06:45 06:45 WBC 16.1 H (3.8-10.6) k/uL RBC 5.03 (3.80-5.40) m/uL Hgb 14.7 (11.4-16.0) gm/dL Hct 43.9 (34.0-46.0) % MCV 87.3 (80.0-100.0) fL MCH 29.3 (25.0-35.0) pg MCHC 33.5 (31.0-37.0) g/dL RDW 12.9 (11.5-15.5) % Plt Count 396 (150-450) k/uL Neutrophils % 64 % Lymphocytes % 30 % Monocytes % 3 % Eosinophils % 1 % Basophils % 1 % Neutrophils # 10.3 H (1.3-7.7) k/uL Lymphocytes # 4.9 H (1.0-4.8) k/uL Monocytes # 0.5 (0-1.0) k/uL Eosinophils # 0.1 (0-0.7) k/uL Basophils # 0.1 (0-0.2) k/uL Sodium (137-145) mmol/L Potassium (3.5-5.1) mmol/L Chloride (98-107) mmol/L Carbon Dioxide (22-30) mmol/L Anion Gap mmol/L BUN (7-17) mg/dL Creatinine (0.52-1.04) mg/dL Est GFR (CKD-EPI)AfAm (>60 ml/min/1.73 sqM) Est GFR (CKD-EPI)NonAf (>60 ml/min/1.73 sqM) Glucose (74-99) mg/dL Calcium (8.4-10.2) mg/dL Total Bilirubin (0.2-1.3) mg/dL AST (14-36) U/L ALT (4-34) U/L Alkaline Phosphatase (38-126) U/L Total Protein (6.3-8.2) g/dL Albumin (3.5-5.0) g/dL Urine Color Urine Appearance (Clear) Urine pH (5.0-8.0) Ur Specific [place] (1.001-1.035) Urine Protein (Negative) Urine Glucose (UA) (Negative) Urine Ketones (Negative) Urine Blood (Negative) Urine Nitrite (Negative) Urine Bilirubin (Negative) Urine Urobilinogen (<2.0) mg/dL Ur Leukocyte Esterase (Negative) Urine RBC (0-5) /hpf Urine WBC (0-5) /hpf Ur Squamous Epith Cells (0-4) /hpf Urine Bacteria (None) /hpf Hyaline Casts (0-2) /lpf Urine Mucus (None) /hpf Urine HCG, Qual Not Detected (Not Detectd) Salicylates mg/dL Urine Opiates Screen Detected H (NotDetected) Ur Oxycodone Screen Not Detected (NotDetected) Urine Methadone Screen Not Detected (NotDetected) Ur Propoxyphene Screen Not Detected (NotDetected) Acetaminophen ug/mL Ur Barbiturates Screen Not Detected (NotDetected) U Tricyclic Antidepress Not Detected (NotDetected) Ur Phencyclidine Scrn Not Detected (NotDetected) Ur Amphetamines Screen Detected H (NotDetected) U Methamphetamines Scrn Not Detected (NotDetected) U Benzodiazepines Scrn Not Detected (NotDetected) Urine Cocaine Screen Detected H (NotDetected) U Marijuana (THC) Screen Detected H (NotDetected) Serum Alcohol mg/dL 05/01/20 05/01/20 Range/Units 06:45 06:45 WBC (3.8-10.6) k/uL RBC (3.80-5.40) m/uL Hgb (11.4-16.0) gm/dL Hct (34.0-46.0) % MCV (80.0-100.0) fL MCH (25.0-35.0) pg MCHC (31.0-37.0) g/dL RDW (11.5-15.5) % Plt Count (150-450) k/uL Neutrophils % % Lymphocytes % % Monocytes % % Eosinophils % % Basophils % % Neutrophils # (1.3-7.7) k/uL Lymphocytes # (1.0-4.8) k/uL Monocytes # (0-1.0) k/uL Eosinophils # (0-0.7) k/uL Basophils # (0-0.2) k/uL Sodium 140 (137-145) mmol/L Potassium 3.9 (3.5-5.1) mmol/L Chloride 105 (98-107) mmol/L Carbon Dioxide 19 L (22-30) mmol/L Anion Gap 16 mmol/L BUN 5 L (7-17) mg/dL Creatinine 1.06 H (0.52-1.04) mg/dL Est GFR (CKD-EPI)AfAm 77 (>60 ml/min/1.73 sqM) Est GFR (CKD-EPI)NonAf 67 (>60 ml/min/1.73 sqM) Glucose 187 H (74-99) mg/dL Calcium 9.6 (8.4-10.2) mg/dL Total Bilirubin 0.5 (0.2-1.3) mg/dL AST 38 H (14-36) U/L ALT 32 (4-34) U/L Alkaline Phosphatase 80 (38-126) U/L Total Protein 8.3 H (6.3-8.2) g/dL Albumin 5.1 H (3.5-5.0) g/dL Urine Color Light Yellow Urine Appearance Cloudy H (Clear) Urine pH 6.0 (5.0-8.0) Ur Specific [place] 1.004 (1.001-1.035) Urine Protein 1+ H (Negative) Urine Glucose (UA) Negative (Negative) Urine Ketones Negative (Negative) Urine Blood Negative (Negative) Urine Nitrite Negative (Negative) Urine Bilirubin Negative (Negative) Urine Urobilinogen <2.0 (<2.0) mg/dL Ur Leukocyte Esterase Negative (Negative) Urine RBC <1 (0-5) /hpf Urine WBC 2 (0-5) /hpf Ur Squamous Epith Cells 3 (0-4) /hpf Urine Bacteria Rare H (None) /hpf Hyaline Casts 4 H (0-2) /lpf Urine Mucus Rare H (None) /hpf Urine HCG, Qual (Not Detectd) Salicylates <1.0 mg/dL Urine Opiates Screen (NotDetected) Ur Oxycodone Screen (NotDetected) Urine Methadone Screen (NotDetected) Ur Propoxyphene Screen (NotDetected) Acetaminophen <10.0 ug/mL Ur Barbiturates Screen (NotDetected) U Tricyclic Antidepress (NotDetected) Ur Phencyclidine Scrn (NotDetected) Ur Amphetamines Screen (NotDetected) U Methamphetamines Scrn (NotDetected) U Benzodiazepines Scrn (NotDetected) Urine Cocaine Screen (NotDetected) U Marijuana (THC) Screen (NotDetected) Serum Alcohol 139 mg/dL - EKG Data -: EKG Interpreted by Me (and Dr. Dove ) EKG Comments: Ventricular rate 121, para 152, QRS 80, QT/QTC 326/462. Sinus tachycardia, cannot rule out anterior infarct age indeterminate. No concern for acute ischemia this time. Disposition Clinical Impression: Overdose, Alcohol abuse, Polysubstance abuse, Hyperglycemia Disposition: HOME SELF-CARE Instructions (If sedation given, give patient instructions): Polysubstance Abuse (ED), Adult Overdose (ED) Additional Instructions: Follow-up with primary care provider tomorrow.Have blood sugar recheck by PCP. Return to ER if condition worsens in any way. Avoid using any more drugs or alcohol. Is patient prescribed a controlled substance at d/c from ED?: No Referrals: Yue Roca MD [Primary Care Provider] - 1-2 days
[2020-05-01 07:26] LABS: Alcohol 139 mg/dL
[2020-05-01 07:35] VITALS: BP 126/88; RESP 18
[2020-05-01 07:41] VITALS: TEMP 97.9
[2020-05-01] MEDS ORDERED: METOCLOPRAMIDE 5 MG TAB PO STA (08:00)
[2020-05-01 08:06] VITALS: PULSE 100
== END 2020-05-01 08:05 | disposition home or self-care (01) ==
LOC: EC 06:12
DX: T65.91XA Toxic effect of unspecified substance, accidental (unintentional), initial encounter (principal); F19.10 Other psychoactive substance abuse, uncomplicated; F10.10 Alcohol abuse, uncomplicated; R73.9 Hyperglycemia, unspecified; D72.829 Elevated white blood cell count, unspecified; F31.9 Bipolar disorder, unspecified; F41.9 Anxiety disorder, unspecified; G89.29 Other chronic pain; Y90.9 Presence of alcohol in blood, level not specified; Z79.51 Long term (current) use of inhaled steroids; Z79.899 Other long term (current) drug therapy; Z91.040 Latex allergy status; Z87.891 Personal history of nicotine dependence; W19.XXXA Unspecified fall, initial encounter; Y92.009 Unspecified place in unspecified non-institutional (private) residence as the place of occurrence of the external cause
CPT/HCPCS: 36415; 93005; 80053; 85025; 81001; 81025; 80306; 83520; 99284; 96360; G0480 ×2; 80320; 80329

== ENCOUNTER 2020-05-17 21:52 | Emergency (ER) | payer OTHER ==
[2020-05-17 21:56] VITALS: BP 132/74; PULSE 97; RESP 18; TEMP 97.9
[2020-05-17] MEDS ORDERED: KETOROLAC 15 MG/ML 1 ML VIAL IM STA (22:18)
--- NOTE | 2020-05-17 22:45 | ED ---
Back Pain HPI - General Chief Complaint: Back Pain/Injury Stated Complaint: Back Pain Time Seen by Provider: 05/17/20 22:14 Source: patient Limitations: no limitations - History of Present Illness MD Complaint: back pain -: days(s) Similar Symptoms Previously: Yes Place: home Radiation: none Severity: moderate Quality: aching Consistency: constant Improves With: none Worsens With: movement Context: while lifting, turning/twisting Associated Symptoms: denies other symptoms - Related Data Home Medications Medication Instructions Recorded Confirmed Pantoprazole Sodium 40 mg PO DAILY 01/26/16 02/18/19 Albuterol Inhaler (Mhu) [Ventolin 2 puff INHALATION RT-Q6H PRN 03/26/17 02/18/19 Hfa Inhaler] Sertraline [Zoloft] 50 mg PO HS 03/26/17 02/18/19 Hydrocodone/Acetaminophen [[place] 1 tab PO TID PRN 06/19/17 02/18/19 7.5-325] Budesonide/Formoterol Fumarate 2 puff INHALATION RT-BID 08/15/18 02/18/19 [Symbicort 160-4.5 Mcg Inhaler] Famotidine [Pepcid] 20 mg PO HS 12/08/18 02/18/19 Ondansetron HCl [Zofran] 8 mg PO BID PRN 12/08/18 02/18/19 Previous Rx's Medication Instructions Recorded Ibuprofen [Motrin] 600 mg PO Q8HR PRN #30 tab 02/18/19 Ketorolac [Toradol] 10 mg PO Q6HR #15 tab 05/17/20 Methocarbamol [Robaxin-750] 750 mg PO TID PRN #30 tablet 05/17/20 Allergies Allergy/AdvReac Type Severity Reaction Status Date / Time latex Allergy Rash/Hives Verified 05/17/20 21:56 Review of Systems ROS Statement: Those systems with pertinent positive or pertinent negative responses have been documented in the HPI. ROS Other: All systems not noted in ROS Statement are negative. Constitutional: Denies: fever, chills Respiratory: Denies: cough, dyspnea Cardiovascular: Denies: chest pain, edema Gastrointestinal: Denies: abdominal pain, vomiting, diarrhea Genitourinary: Denies: dysuria, frequency, hematuria Musculoskeletal: Reports: as per HPI, back pain Skin: Denies: rash Neurological: Denies: headache, weakness, numbness, paresthesias Past Medical History Past Medical History: Hypertension Additional Past Medical History / Comment(s): marijuana card for chronic pain and nausea History of Any Multi-Drug Resistant Organisms: None Reported Past Surgical History: Orthopedic Surgery, Tonsillectomy, Tubal Ligation Past Anesthesia/Blood Transfusion Reactions: No Reported Reaction Past Psychological History: ADD/ADHD, Anxiety, Bipolar, Depression Smoking Status: Former smoker Past Alcohol Use History: Occasional Past Drug Use History: Marijuana - Past Family History Mother Family Medical History: No Reported History General Exam Limitations: no limitations General appearance: alert, in no apparent distress Neck exam: Present: full ROM Respiratory exam: Present: normal lung sounds bilaterally. Absent: respiratory distress, wheezes, rales, rhonchi, stridor Cardiovascular Exam: Present: regular rate, normal rhythm, normal heart sounds. Absent: systolic murmur, diastolic murmur, rubs, gallop GI/Abdominal exam: Present: soft. Absent: distended, tenderness, guarding, rebound, rigid, mass, pulsatile mass Extremities exam: Present: normal inspection, normal capillary refill. Absent: pedal edema, calf tenderness Back exam: Present: normal inspection, paraspinal tenderness. Absent: CVA tenderness (R), CVA tenderness (L), vertebral tenderness Neurological exam: Present: alert, normal gait, reflexes normal. Absent: motor sensory deficit Skin exam: Present: warm, dry, intact, normal color. Absent: rash Course Vital Signs 05/17/20 21:54 Temperature 97.9 F Pulse Rate 97 Respiratory 18 Rate Blood Pressure 132/74 O2 Sat by Pulse 94 L Oximetry Disposition Clinical Impression: Mechanical back pain Disposition: HOME SELF-CARE Condition: Good Instructions (If sedation given, give patient instructions): Acute Low Back Pain (ED) Prescriptions: Methocarbamol [Robaxin-750] 750 mg PO TID PRN #30 tablet PRN Reason: pain Ketorolac [Toradol] 10 mg PO Q6HR #15 tab Is patient prescribed a controlled substance at d/c from ED?: No Referrals: Yue Roca MD [Primary Care Provider] - 1-2 days
== END 2020-05-17 23:16 | disposition home or self-care (01) ==
LOC: EC 21:52
DX: M54.9 Dorsalgia, unspecified (principal); F31.9 Bipolar disorder, unspecified; F41.9 Anxiety disorder, unspecified; Z87.891 Personal history of nicotine dependence; Z91.040 Latex allergy status; X50.1XXA Overexertion from prolonged static or awkward postures, initial encounter
CPT/HCPCS: 99283 ×2; 96372 ×2; J1885

== ENCOUNTER 2020-11-26 18:09 | Emergency (ER) | payer OTHER ==
[2020-11-26 18:13] VITALS: RESP 16; TEMP 97.8
[2020-11-26] MEDS ORDERED: MORPHINE SULFATE 4 MG/ML SYRINGE IV STA (18:26)
[2020-11-26] MEDS ORDERED: ONDANSETRON 4 MG/2 ML VIAL IVP STA (18:26)
[2020-11-26] MEDS ORDERED: SODIUM CHLORIDE 0.9% 1,000 ML IV STA (18:26)
--- NOTE | 2020-11-26 18:30 | ED ---
Abdominal Pain HPI - General Chief Complaint: Abdominal Pain Stated Complaint: Stomach Pain Time Seen by Provider: 11/26/20 18:17 Source: patient, RN notes reviewed Mode of arrival: ambulatory Limitations: no limitations - History of Present Illness Initial Comments: Patient is a 40-year-old female presents emergency department complaining of abdominal pain. She noted that she ate a questionable chicken sandwich from [employer] about 2 hours ago. She noted after eating a few bites a sandwich her stomach began to feel upset. She noted that she also has been mildly constipated and only one bowel movement today which he usually has 2 or 3 per day. She noted that she also takes narcotic pain medication at home regularly for pain but does not take any stool softeners. She said the pain is about a 6-7 out of 10 currently that is unrelieved for the last several hours. She denied any nausea vomiting diarrhea fever fatigue chills chest pain shortness of breath headache - Related Data Home Medications Medication Instructions Recorded Confirmed Pantoprazole Sodium 40 mg PO DAILY 01/26/16 02/18/19 Albuterol Inhaler (Mhu) [Ventolin 2 puff INHALATION RT-Q6H PRN 03/26/17 02/18/19 Hfa Inhaler] Sertraline [Zoloft] 50 mg PO HS 03/26/17 02/18/19 Hydrocodone/Acetaminophen [[place] 1 tab PO TID PRN 06/19/17 02/18/19 7.5-325] Budesonide/Formoterol Fumarate 2 puff INHALATION RT-BID 08/15/18 02/18/19 [Symbicort 160-4.5 Mcg Inhaler] Famotidine [Pepcid] 20 mg PO HS 12/08/18 02/18/19 ondansetron HCL [Zofran] 8 mg PO BID PRN 12/08/18 02/18/19 Previous Rx's Medication Instructions Recorded Ibuprofen [Motrin] 600 mg PO Q8HR PRN #30 tab 02/18/19 Ketorolac [Toradol] 10 mg PO Q6HR #15 tab 05/17/20 Methocarbamol [Robaxin-750] 750 mg PO TID PRN #30 tablet 05/17/20 Dicyclomine [Bentyl] 20 mg PO TID #30 tablet 11/26/20 Allergies Allergy/AdvReac Type Severity Reaction Status Date / Time latex Allergy Rash/Hives Verified 11/26/20 18:13 Review of Systems ROS Statement: Those systems with pertinent positive or pertinent negative responses have been documented in the HPI. ROS Other: All systems not noted in ROS Statement are negative. Past Medical History Past Medical History: Hypertension Additional Past Medical History / Comment(s): marijuana card for chronic pain and nausea History of Any Multi-Drug Resistant Organisms: None Reported Past Surgical History: Orthopedic Surgery, Tonsillectomy, Tubal Ligation Past Anesthesia/Blood Transfusion Reactions: No Reported Reaction Past Psychological History: ADD/ADHD, Anxiety, Bipolar, Depression Smoking Status: Former smoker Past Alcohol Use History: Occasional Past Drug Use History: Marijuana - Past Family History Mother Family Medical History: No Reported History General Exam Limitations: no limitations General appearance: alert, in no apparent distress, obese Head exam: Present: atraumatic, normocephalic, normal inspection Eye exam: Present: normal appearance, PERRL, EOMI. Absent: scleral icterus, conjunctival injection, periorbital swelling ENT exam: Present: normal exam, mucous membranes moist Neck exam: Present: normal inspection. Absent: tenderness, meningismus, lymphadenopathy Respiratory exam: Present: normal lung sounds bilaterally. Absent: respiratory distress, wheezes, rales, rhonchi, stridor Cardiovascular Exam: Present: regular rate, normal rhythm, normal heart sounds. Absent: systolic murmur, diastolic murmur, rubs, gallop, clicks GI/Abdominal exam: Present: soft, tenderness (Epigastric and right middle quadrant.), hypoactive bowel sounds. Absent: distended, guarding, rebound, rigid Extremities exam: Present: normal inspection, full ROM, normal capillary refill. Absent: tenderness, pedal edema, joint swelling, calf tenderness Neurological exam: Present: alert, oriented X3, CN II-XII intact Psychiatric exam: Present: normal affect, normal mood Skin exam: Present: warm, dry, intact, normal color. Absent: rash Course Vital Signs 11/26/20 18:11 Temperature 97.8 F Pulse Rate 112 H Respiratory 16 Rate Blood Pressure 138/90 O2 Sat by Pulse 95 Oximetry Medical Decision Making - Medical Decision Making 40-year-old female that presents to emergency department with 2 hour history of abdominal pain. Labs, 1 L normal saline, KUB, 4 mg of Zofran, 4 mg of morphine ordered. KUB negative for any acute process. Heart rate was rechecked by myself, it was 88 bpm Case discussed with Dr. Field, was decided the patient could go home. - Lab Data Result diagrams: 11/26/20 18:48 11/26/20 18:48 Lab Results 11/26/20 11/26/20 Range/Units 18:48 18:48 WBC 7.6 (3.8-10.6) k/uL RBC 4.63 (3.80-5.40) m/uL Hgb 13.8 (11.4-16.0) gm/dL Hct 40.6 (34.0-46.0) % MCV 87.7 (80.0-100.0) fL MCH 29.8 (25.0-35.0) pg MCHC 33.9 (31.0-37.0) g/dL RDW 12.5 (11.5-15.5) % Plt Count 225 (150-450) k/uL MPV 7.1 Neutrophils % 53 % Lymphocytes % 35 % Monocytes % 7 % Eosinophils % 3 % Basophils % 0 % Neutrophils # 4.0 (1.3-7.7) k/uL Lymphocytes # 2.7 (1.0-4.8) k/uL Monocytes # 0.5 (0-1.0) k/uL Eosinophils # 0.2 (0-0.7) k/uL Basophils # 0.0 (0-0.2) k/uL Sodium 135 L (137-145) mmol/L Potassium 4.5 (3.5-5.1) mmol/L Chloride 103 (98-107) mmol/L Carbon Dioxide 25 (22-30) mmol/L Anion Gap 7 mmol/L BUN 9 (7-17) mg/dL Creatinine 0.71 (0.52-1.04) mg/dL Est GFR (CKD-EPI)AfAm >90 (>60 ml/min/1.73 sqM) Est GFR (CKD-EPI)NonAf >90 (>60 ml/min/1.73 sqM) Glucose 94 (74-99) mg/dL Calcium 9.3 (8.4-10.2) mg/dL Total Bilirubin 0.5 (0.2-1.3) mg/dL AST 36 (14-36) U/L ALT 31 (4-34) U/L Alkaline Phosphatase 50 (38-126) U/L Total Protein 6.9 (6.3-8.2) g/dL Albumin 4.1 (3.5-5.0) g/dL Amylase 38 (30-110) U/L Lipase 38 (23-300) U/L - Radiology Data Radiology results: report reviewed, image reviewed KUB: Nonacute abdomen. No change. Disposition Clinical Impression: Abdominal pain Disposition: HOME SELF-CARE Condition: Stable Instructions (If sedation given, give patient instructions): Abdominal Pain (ED) Additional Instructions: Please return to the Emergency Department if symptoms worsen or any other concerns. Follow-up with primary care 1-2 days. Increase oral fluid intake. Medications as prescribed. Prescriptions: Dicyclomine [Bentyl] 20 mg PO TID #30 tablet Is patient prescribed a controlled substance at d/c from ED?: No Referrals: Isaías Gamino MD [Primary Care Provider] - 1-2 days Time of Disposition: 20:04
--- NOTE | 2020-11-26 19:11 | XR ---
EXAMINATION TYPE: XR KUB DATE OF EXAM: 11/26/2020 COMPARISON: 02/18/2019 HISTORY: Abdominal pain TECHNIQUE: FINDINGS: There is no sign of intestinal obstruction or pneumoperitoneum. Fecal pattern is normal. Th ere are clips from tubal ligation. Lung bases are clear. There are no pathologic calcifications over the kidneys. IMPRESSION: Nonacute abdomen. No change.
[2020-11-26 19:23] LABS: Basophils % (A) 0 %; Eosinophils # (A) 0.2 k/uL (0-0.7); Eosinophils % (A) 3 %; HCT 40.6 % (34.0-46.0); HGB 13.8 gm/dL (11.4-16.0); Lymphocytes # (A) 2.7 k/uL (1.0-4.8); Lymphocytes % (A) 35 %; MCH 29.8 pg (25.0-35.0); MCHC 33.9 g/dL (31.0-37.0); MCV 87.7 fL (80.0-100.0); Mean Platelet Volume 7.1; Monocytes # (A) 0.5 k/uL (0-1.0); Monocytes % (A) 7 %; Neutrophils % (A) 53 %; Platelet Count 225 k/uL (150-450); RBC 4.63 m/uL (3.80-5.40); RDW 12.5 % (11.5-15.5); WBC 7.6 k/uL (3.8-10.6)
[2020-11-26 19:43] LABS: ALT 31 U/L (4-34); AST 36 U/L (14-36); African American GFR (CKD) >90 (>60 ml/min/1.73 sqM); Albumin 4.1 g/dL (3.5-5.0); Alkaline Phosphatase 50 U/L (38-126); Amylase 38 U/L (30-110); Anion Gap 7 mmol/L; Blood Urea Nitrogen 9 mg/dL (7-17); Calcium 9.3 mg/dL (8.4-10.2); Carbon Dioxide 25 mmol/L (22-30); Chloride 103 mmol/L (98-107); Glucose 94 mg/dL (74-99); Lipase 38 U/L (23-300); Non-African American GFR(CKD) >90 (>60 ml/min/1.73 sqM); Sodium 135 mmol/L (137-145); Total Bilirubin 0.5 mg/dL (0.2-1.3); Total Protein 6.9 g/dL (6.3-8.2)
[2020-11-26 19:59] LABS: Potassium 4.5 mmol/L (3.5-5.1)
[2020-11-26 20:15] VITALS: BP 109/78; PULSE 79
[2020-11-26 20:20] LABS: Appearance,Urine Cloudy (Clear); Bacteria,Urine Rare /hpf; Bilirubin,Urine Negative (Negative); Blood,Urine Negative (Negative); Color,Urine Light Yellow; Glucose,Urine (UA) Negative (Negative); Ketones,Urine Negative (Negative); Leukocyte Esterase,Urine Negative (Negative); Mucus,Urine Rare /hpf; Nitrite,Urine Negative (Negative); PH, Urine 5.5 (5.0-8.0); Protein,Urine Negative (Negative); Specific Gravity,Urine 1.006 (1.001-1.035); Squamous Epithelial Cell,Urine 3 /hpf (0-4); Urobilinogen,Urine <2.0 mg/dL (<2.0); WBC,Urine 1 /hpf (0-5)
== END 2020-11-26 20:16 | disposition home or self-care (01) ==
LOC: EC 18:09
DX: R10.13 Epigastric pain (principal); I10 Essential (primary) hypertension; F41.9 Anxiety disorder, unspecified; F31.9 Bipolar disorder, unspecified; F90.9 Attention-deficit hyperactivity disorder, unspecified type; Z79.899 Other long term (current) drug therapy; Z87.891 Personal history of nicotine dependence; Z98.51 Tubal ligation status; Z91.040 Latex allergy status
CPT/HCPCS: 36415; 80053; 82150; 83690; 85025; 81001; 81025; 74018; 99284; 96374; 96375; 96361; J2270; J2405

== ENCOUNTER 2021-04-12 16:10 | Emergency (ER) | payer OTHER ==
[2021-04-12 16:13] VITALS: TEMP 98.2
[2021-04-12] MEDS ORDERED: IPRATROPIUM-ALBUTEROL 3 ML NEB INHALATION STA (16:39)
--- NOTE | 2021-04-12 17:01 | ED ---
SOB HPI - General Chief Complaint: Shortness of Breath Stated Complaint: BUSTER Time Seen by Provider: 04/12/21 16:15 Source: patient Mode of arrival: ambulatory Limitations: no limitations - History of Present Illness Initial Comments: Patient is a 40-year-old female with history of COPD, presenting to the emergency Department with complaints of some congestion in her chest over the past 3 days. She thinks she is having a mild flareup of her COPD. She states she is out of one of her inhalers. She feels like she just needs a breathing treatment. She denies any chest pains, she does admit to some congestion, mild cough. No fevers or chills. She denies any abdominal pain, no nausea or vomiting. She has no further complaints. Upon arrival to the ER, her vitals are stable. - Related Data Home Medications Medication Instructions Recorded Confirmed Pantoprazole Sodium 40 mg PO DAILY 01/26/16 04/12/21 Sertraline [Zoloft] 50 mg PO HS 03/26/17 04/12/21 Budesonide/Formoterol Fumarate 2 puff INHALATION RT-BID 08/15/18 04/12/21 [Symbicort 160-4.5 Mcg Inhaler] Albuterol Sulfate [Proair Hfa] 2 puff INHALATION RT-BID PRN 04/12/21 04/12/21 Cyclobenzaprine [Flexeril] 10 mg PO TID PRN 04/12/21 04/12/21 Ergocalciferol [Vitamin D2 (1250 1,250 mcg PO SA 04/12/21 04/12/21 Mcg = 49630 Iu)] HYDROcodone/APAP 5-325MG [[place] 1 tab PO DAILY PRN 04/12/21 04/12/21 5-325] Naloxone HCl [Narcan] 4 mg NASAL ONCE PRN 04/12/21 04/12/21 Ondansetron [Zofran] 4 mg PO Q8H PRN 04/12/21 04/12/21 Phentermine HCl [Adipex-P] 37.5 mg PO DAILY 04/12/21 04/12/21 Previous Rx's Medication Instructions Recorded predniSONE 50 mg PO DAILY #5 tab 04/12/21 Allergies Allergy/AdvReac Type Severity Reaction Status Date / Time latex Allergy Rash/Hives Verified 04/12/21 17:13 Review of Systems ROS Statement: Those systems with pertinent positive or pertinent negative responses have been documented in the HPI. ROS Other: All systems not noted in ROS Statement are negative. Past Medical History Past Medical History: COPD, Hypertension Additional Past Medical History / Comment(s): marijuana card for chronic pain and nausea History of Any Multi-Drug Resistant Organisms: None Reported Past Surgical History: Orthopedic Surgery, Tonsillectomy, Tubal Ligation Past Anesthesia/Blood Transfusion Reactions: No Reported Reaction Past Psychological History: ADD/ADHD, Anxiety, Bipolar, Depression Smoking Status: Former smoker Past Alcohol Use History: Occasional Past Drug Use History: Marijuana - Past Family History Mother Family Medical History: No Reported History General Exam - General Exam Comments Initial Comments: GENERAL: Patient is well-developed and well-nourished. Patient is nontoxic and in no acute distress. HEAD: Atraumatic, normocephalic. EYES: Pupils equal round and reactive to light, extraocular movements intact, sclera anicteric, conjunctiva are normal. Eyelids were unremarkable. ENT: TMs normal, nares patent, oropharynx clear without exudates. Moist mucous membranes. NECK: Normal range of motion, supple without lymphadenopathy or JVD. LUNGS: Unlabored respirations. Mild scattered wheezes. HEART: Regular rate and rhythm without murmurs, rubs or gallops. ABDOMEN: Soft, nontender, normoactive bowel sounds. No guarding, no rebound. No masses appreciated. MUSCULOSKELETAL: Normal extremities with adequate strength and normal range of motion, no pitting or edema. No clubbing or cyanosis. NEUROLOGICAL: Patient is alert and oriented x 3. SKIN: Warm, Dry, normal turgor, no rashes or lesions noted. Limitations: no limitations Course Vital Signs 04/12/21 04/12/21 04/12/21 16:10 16:59 17:09 Temperature 98.2 F Pulse Rate 94 89 96 Respiratory 22 Rate Blood Pressure 144/95 O2 Sat by Pulse 97 Oximetry Medical Decision Making - Medical Decision Making Patient is a 40-year-old female with history of COPD, presenting with a possible mild acute flareup. She states she thinks she just needs a breathing treatment. Some congestion and wheezes for the last 3 days. No fevers, no chest pains, no difficulty in breathing. She does have some mild scattered wheezes on exam. I did order a breathing treatment which did help with her symptoms. Chest x-ray shows some mild pulmonary vascular markings, no signs of pneumonia. I will prescribe patient a few days of steroids, she follow-up with her primary care physician. She is agreeable to this plan of care. Return parameters were discussed with her and she verbalized understanding. Case discussed with Dr. Dove. Disposition Clinical Impression: COPD exacerbation Disposition: HOME SELF-CARE Condition: Stable Instructions (If sedation given, give patient instructions): COPD (Chronic Obstructive Pulmonary Disease) (ED) Additional Instructions: Please return to the Emergency Department if symptoms worsen or any other concerns. Take steroids as prescribed. Continue with your inhalers. Recommend following up with your primary care physician to discuss a at home nebulizer machine. Prescriptions: predniSONE 50 mg PO DAILY #5 tab Is patient prescribed a controlled substance at d/c from ED?: No Referrals: Isaías Gamino MD [Primary Care Provider] - 1-2 days Time of Disposition: 17:43
--- NOTE | 2021-04-12 17:36 | XR ---
EXAMINATION TYPE: XR chest 2V DATE OF EXAM: 04/12/2021 COMPARISON: 12/08/2018 INDICATION: Congestion COPD TECHNIQUE: Frontal and lateral views of the chest are obtained. FINDINGS: The heart size is normal. The pulmonary vasculature is prominent. The lungs are clear. IMPRESSION: 1. Mildly prominent pulmonary vascular markings. Correlate for volume overload.
[2021-04-12 17:58] VITALS: BP 127/90; PULSE 89; RESP 18
== END 2021-04-12 17:57 | disposition home or self-care (01) ==
LOC: EC 16:10
DX: J44.9 Chronic obstructive pulmonary disease, unspecified (principal); I10 Essential (primary) hypertension; F12.90 Cannabis use, unspecified, uncomplicated; Z87.891 Personal history of nicotine dependence; F32.9 Major depressive disorder, single episode, unspecified
CPT/HCPCS: 71046; 94640; 99285

== ENCOUNTER 2021-06-07 22:23 | Emergency (ER) | payer OTHER ==
[2021-06-07] MEDS ORDERED: ASPIRIN 81 MG PO STA (22:35)
[2021-06-07] MEDS ORDERED: ONDANSETRON 4 MG/2 ML VIAL IVP STA (22:51)
[2021-06-07] MEDS ORDERED: KETOROLAC 15 MG/ML 1 ML VIAL IVP STA (22:51)
[2021-06-07 23:08] VITALS: PULSE 76; RESP 20
--- NOTE | 2021-06-07 23:14 | ED ---
Chest Pain HPI - General Chief Complaint: Chest Pain Stated Complaint: Chest Pain Time Seen by Provider: 06/07/21 22:35 Source: patient, RN notes reviewed Mode of arrival: ambulatory Limitations: no limitations - History of Present Illness Initial Comments: 40-year-old female presents emergency Department chief complaint of chest wall pain. Patient states been having discomfort last few days. states she did notice that symptoms worse when she took her Atarax. Patient also states that primarily hurts when she presses on her chest or she twists or bends. Any shortness of breath no pleuritic pain. Patient has no prior cardiac disease including hypertension, hyperlipidemia, diabetes. Patient has no complaints of abdominal pain appears chills cough congestion - Related Data Home Medications Medication Instructions Recorded Confirmed Pantoprazole Sodium 40 mg PO DAILY 01/26/16 06/07/21 Sertraline [Zoloft] 50 mg PO HS 03/26/17 06/07/21 Budesonide/Formoterol Fumarate 2 puff INHALATION RT-BID 08/15/18 06/07/21 [Symbicort 160-4.5 Mcg Inhaler] Albuterol Sulfate [Proair Hfa] 2 puff INHALATION RT-Q4H PRN 04/12/21 06/07/21 Cyclobenzaprine [Flexeril] 10 mg PO TID PRN 04/12/21 06/07/21 Ergocalciferol [Vitamin D2 (1250 1,250 mcg PO SA 04/12/21 06/07/21 Mcg = 77266 Iu)] HYDROcodone/APAP 5-325MG [[place] 1 tab PO Q6H PRN 04/12/21 06/07/21 5-325] Naloxone HCl [Narcan] 4 mg NASAL ONCE PRN 04/12/21 06/07/21 Ondansetron [Zofran] 4 mg PO Q8H PRN 04/12/21 06/07/21 Phentermine HCl [Adipex-P] 37.5 mg PO DAILY 04/12/21 06/07/21 Ipratropium-Albuterol Nebulize 3 ml INHALATION RT-QID PRN 06/07/21 06/07/21 [Duoneb 0.5 mg-3 mg/3 ml Soln] Allergies Allergy/AdvReac Type Severity Reaction Status Date / Time latex Allergy Rash/Hives Verified 09/08/21 23:13 Review of Systems ROS Statement: Those systems with pertinent positive or pertinent negative responses have been documented in the HPI. ROS Other: All systems not noted in ROS Statement are negative. EKG Findings - EKG Comments: EKG Findings:: EKG performed at 22:30 normal sinus rhythm rate of 78 WA 1:30 QRS 88 QT/QTC 390/444 Past Medical History Past Medical History: COPD, Hypertension Additional Past Medical History / Comment(s): marijuana card for chronic pain and nausea History of Any Multi-Drug Resistant Organisms: None Reported Past Surgical History: Orthopedic Surgery, Tonsillectomy, Tubal Ligation Past Anesthesia/Blood Transfusion Reactions: No Reported Reaction Past Psychological History: ADD/ADHD, Anxiety, Bipolar, Depression Smoking Status: Former smoker Past Alcohol Use History: Occasional Past Drug Use History: Marijuana - Past Family History Mother Family Medical History: No Reported History General Exam Limitations: no limitations General appearance: alert, in no apparent distress Head exam: Present: atraumatic, normocephalic, normal inspection Eye exam: Present: normal appearance, PERRL, EOMI. Absent: scleral icterus, conjunctival injection, periorbital swelling ENT exam: Present: normal exam, mucous membranes moist Neck exam: Present: normal inspection, full ROM. Absent: tenderness, meningismus, lymphadenopathy Respiratory exam: Present: normal lung sounds bilaterally, chest wall tenderness (Moderate left-sided). Absent: respiratory distress, wheezes, rales, rhonchi, stridor Cardiovascular Exam: Present: regular rate, normal rhythm, normal heart sounds. Absent: systolic murmur, diastolic murmur, rubs, gallop, clicks GI/Abdominal exam: Present: soft, normal bowel sounds. Absent: distended, tenderness, guarding, rebound, rigid Back exam: Present: normal inspection, full ROM. Absent: tenderness, paraspinal tenderness, vertebral tenderness Neurological exam: Present: alert, oriented X3, CN II-XII intact Course Vital Signs 06/07/21 06/07/21 22:25 23:07 Temperature 97.7 F Pulse Rate 87 76 Respiratory 18 20 Rate Blood Pressure 144/100 131/87 O2 Sat by Pulse 96 95 Oximetry Chest Pain [facility] X-ray lab EKG unremarkable. Patient is reproducible chest wall pain has been going on for several days we discharged advised take anti-inflammatories will discontinue Anaprox and follow-up with PCP. Disposition Clinical Impression: Chest wall pain Disposition: HOME SELF-CARE Condition: Stable Instructions (If sedation given, give patient instructions): Costochondritis (ED), Chest Pain (ED) Additional Instructions: Please return to the Emergency Department if symptoms worsen or any other concerns. Is patient prescribed a controlled substance at d/c from ED?: No Referrals: Isaías Gamino MD [Primary Care Provider] - 1-2 days Time of Disposition: 00:21
[2021-06-07 23:18] LABS: Basophils % (A) 1 %; Eosinophils # (A) 0.1 k/uL (0-0.7); Eosinophils % (A) 1 %; HCT 45.6 % (34.0-46.0); HGB 15.6 gm/dL (11.4-16.0); Lymphocytes % (A) 40 %; MCH 30.4 pg (25.0-35.0); MCHC 34.2 g/dL (31.0-37.0); Monocytes # (A) 0.3 k/uL (0-1.0); Monocytes % (A) 4 %; Neutrophils % (A) 53 %; Platelet Count 215 k/uL (150-450); RBC 5.13 m/uL (3.80-5.40); RDW 13.5 % (11.5-15.5); WBC 7.5 k/uL (3.8-10.6)
[2021-06-07 23:20] LABS: ALT 44 U/L (4-34); AST 50 U/L (14-36); African American GFR (CKD) >90 (>60 ml/min/1.73 sqM); Albumin 4.7 g/dL (3.5-5.0); Alkaline Phosphatase 66 U/L (38-126); Anion Gap 10 mmol/L; Blood Urea Nitrogen 10 mg/dL (7-17); Calcium 9.9 mg/dL (8.4-10.2); Carbon Dioxide 23 mmol/L (22-30); Chloride 104 mmol/L (98-107); Glucose 93 mg/dL (74-99); Lipase 33 U/L (23-300); Magnesium 1.8 mg/dL (1.6-2.3); Non-African American GFR(CKD) >90 (>60 ml/min/1.73 sqM); Potassium 4.6 mmol/L (3.5-5.1); Sodium 137 mmol/L (137-145); Total Bilirubin 0.6 mg/dL (0.2-1.3); Total Protein 7.7 g/dL (6.3-8.2)
[2021-06-07 23:27] LABS: Prothrombin Time 10.4 sec (9.0-12.0)
[2021-06-07 23:35] LABS: Partial Thromboplastin Time 18.7 sec (22.0-30.0)
--- NOTE | 2021-06-08 00:03 | XR ---
EXAMINATION TYPE: XR chest 2V DATE OF EXAM: 06/07/2021 COMPARISON: 04/12/2021 HISTORY: Chest pain TECHNIQUE: 2 views FINDINGS: Heart and mediastinum are normal. Lungs are clear. Diaphragm is normal. Bony thorax appears normal. IMPRESSION: Normal chest. No change.
[2021-06-08 00:55] VITALS: BP 142/99; TEMP 98.3
== END 2021-06-08 00:55 | disposition home or self-care (01) ==
LOC: EC 22:23
DX: R07.89 Other chest pain (principal); I10 Essential (primary) hypertension; J44.9 Chronic obstructive pulmonary disease, unspecified; F12.90 Cannabis use, unspecified, uncomplicated; F31.9 Bipolar disorder, unspecified; F41.9 Anxiety disorder, unspecified; Z79.1 Long term (current) use of non-steroidal anti-inflammatories (NSAID); Z79.51 Long term (current) use of inhaled steroids; Z79.899 Other long term (current) drug therapy
CPT/HCPCS: 36415; 80053; 83690; 83735; 84484; 85025; 85610; 85730; 71046; 99285; 96374; 96375; J2405; J1885

== ENCOUNTER 2021-09-07 19:18 | Emergency (ER) | payer OTHER ==
[2021-09-07 20:44] VITALS: PULSE 80; RESP 20; TEMP 99
[2021-09-07 22:01] LABS: Basophils % (A) 0 %; Eosinophils # (A) 0.1 k/uL (0-0.7); Eosinophils % (A) 2 %; HCT 46.2 % (34.0-46.0); HGB 15.2 gm/dL (11.4-16.0); Lymphocytes # (A) 3.6 k/uL (1.0-4.8); Lymphocytes % (A) 40 %; MCH 30.9 pg (25.0-35.0); MCV 93.7 fL (80.0-100.0); Monocytes # (A) 0.3 k/uL (0-1.0); Monocytes % (A) 3 %; Neutrophils # (A) 4.8 k/uL (1.3-7.7); Neutrophils % (A) 53 %; Platelet Count 347 k/uL (150-450); RBC 4.93 m/uL (3.80-5.40); RDW 13.1 % (11.5-15.5)
--- NOTE | 2021-09-07 22:10 | XR ---
INDICATION: Patient age:Female; 41 years old; Reason for study: abdominal pain; PHH. COMPARISON: 11/26/2020 TECHNIQUE: One radiographic view of the abdomen was obtained. FINDINGS: The bowel gas pattern is nonspecific without dilated loops of small or large bowel. There i s no evidence for organomegaly or pneumoperitoneum. The osseous structures are intact. No abnormal calcifications are present. Fecal material and gas are demonstrated throughout the colon and rectum. IMPRESSION: No acute abdominal process.
[2021-09-07 22:15] LABS: Appearance,Urine Cloudy (Clear); Bacteria,Urine Rare /hpf; Bilirubin,Urine Negative (Negative); Blood,Urine Negative (Negative); Color,Urine Yellow; Glucose,Urine (UA) Negative (Negative); Hyaline Casts,Urine 1 /lpf (0-2); Ketones,Urine Negative (Negative); Leukocyte Esterase,Urine Negative (Negative); Mucus,Urine Rare /hpf; Nitrite,Urine Negative (Negative); Protein,Urine Negative (Negative); RBC,Urine 2 /hpf (0-5); Specific Gravity,Urine 1.023 (1.001-1.035); Squamous Epithelial Cell,Urine 10 /hpf (0-4); Urobilinogen,Urine <2.0 mg/dL (<2.0); WBC,Urine 2 /hpf (0-5)
[2021-09-07 22:23] LABS: Albumin 4.3 g/dL (3.5-5.0); Calcium 9.3 mg/dL (8.4-10.2); Potassium 4.8 mmol/L (3.5-5.1); Total Bilirubin 0.4 mg/dL (0.2-1.3); Total Protein 7.5 g/dL (6.3-8.2)
--- NOTE | 2021-09-07 23:48 | US ---
EXAMINATION TYPE: US abdomen limited DATE OF EXAM: 09/07/2021 COMPARISON: CT, US CLINICAL HISTORY: Right upper quadrant pain x1 week. RUQ pain x 1 week. EXAM MEASUREMENTS: Liver Length: 15.7 cm Gallbladder Wall: 0.26 cm Right Kidney: 10.6 x 5.5 x 5.0 cm Limited due to patient body habitus and overlying bowel gas. Pancreas: Limited due to gas. Liver: Appears coarse in echotexture with increased echogenicity. Gallbladder: Hyperechoic area seen within that appears to be attached to the gallbladder wall measur ing 0.3 x 0.3 x 0.2 cm. Evidence for sonographic Perez's sign: No. CBD: Not visualized. Right Kidney:Anechoic area seen upper pole: 1.2 x 1.1 x 1.2 cm. IMPRESSION: No gallstones or dilated ducts. No evidence of right renal obstruction. Small renal corti shaina cyst.
--- NOTE | 2021-09-08 00:11 | ED ---
Abdominal Pain HPI - General Chief Complaint: Abdominal Pain Stated Complaint: Abd pain Time Seen by Provider: 09/07/21 23:58 Source: patient Mode of arrival: ambulatory Limitations: no limitations - History of Present Illness MD Complaint: abdominal pain Onset/Timin -: week(s) Location: RUQ Radiation: back Migration to: no migration Severity: moderate Quality: cramping, aching Consistency: colicky Improves With: nothing Worsens With: eating Associated Symptoms: nausea - Related Data Home Medications Medication Instructions Recorded Confirmed Pantoprazole Sodium 40 mg PO DAILY 01/26/16 06/07/21 Sertraline [Zoloft] 50 mg PO HS 03/26/17 06/07/21 Budesonide/Formoterol Fumarate 2 puff INHALATION RT-BID 08/15/18 06/07/21 [Symbicort 160-4.5 Mcg Inhaler] Albuterol Sulfate [Proair Hfa] 2 puff INHALATION RT-Q4H PRN 04/12/21 06/07/21 Cyclobenzaprine [Flexeril] 10 mg PO TID PRN 04/12/21 06/07/21 Ergocalciferol [Vitamin D2 (1250 1,250 mcg PO SA 04/12/21 06/07/21 Mcg = 01071 Iu)] HYDROcodone/APAP 5-325MG [[place] 1 tab PO Q6H PRN 04/12/21 06/07/21 5-325] Naloxone HCl [Narcan] 4 mg NASAL ONCE PRN 04/12/21 06/07/21 Ondansetron [Zofran] 4 mg PO Q8H PRN 04/12/21 06/07/21 Phentermine HCl [Adipex-P] 37.5 mg PO DAILY 04/12/21 06/07/21 Ipratropium-Albuterol Nebulize 3 ml INHALATION RT-QID PRN 06/07/21 06/07/21 [Duoneb 0.5 mg-3 mg/3 ml Soln] Allergies Allergy/AdvReac Type Severity Reaction Status Date / Time latex Allergy Rash/Hives Verified 09/07/21 20:44 Review of Systems ROS Statement: Those systems with pertinent positive or pertinent negative responses have been documented in the HPI. ROS Other: All systems not noted in ROS Statement are negative. Constitutional: Denies: fever, chills ENT: Denies: throat pain Respiratory: Denies: cough, dyspnea Cardiovascular: Denies: chest pain, palpitations Gastrointestinal: Reports: abdominal pain, nausea. Denies: vomiting, diarrhea, melena, hematochezia Genitourinary: Denies: dysuria, hematuria Musculoskeletal: Denies: back pain Skin: Denies: rash Neurological: Denies: headache, weakness Past Medical History Past Medical History: COPD, Hypertension Additional Past Medical History / Comment(s): marijuana card for chronic pain and nausea History of Any Multi-Drug Resistant Organisms: None Reported Past Surgical History: Orthopedic Surgery, Tonsillectomy, Tubal Ligation Past Anesthesia/Blood Transfusion Reactions: No Reported Reaction Past Psychological History: ADD/ADHD, Anxiety, Bipolar, Depression Smoking Status: Former smoker Past Alcohol Use History: Occasional Past Drug Use History: Marijuana - Past Family History Mother Family Medical History: No Reported History General Exam Limitations: no limitations General appearance: alert, in no apparent distress Head exam: Present: atraumatic, normocephalic Eye exam: Present: normal appearance. Absent: scleral icterus, conjunctival injection Neck exam: Present: normal inspection Respiratory exam: Present: normal lung sounds bilaterally. Absent: respiratory distress, wheezes, rales, rhonchi, stridor Cardiovascular Exam: Present: regular rate, normal rhythm, normal heart sounds. Absent: systolic murmur, diastolic murmur, rubs, gallop GI/Abdominal exam: Present: soft, normal bowel sounds. Absent: distended, tenderness, guarding, rebound, rigid, mass, pulsatile mass, hernia Extremities exam: Present: normal inspection, normal capillary refill. Absent: pedal edema, calf tenderness Back exam: Present: normal inspection. Absent: CVA tenderness (R), CVA tenderness (L) Neurological exam: Present: alert Skin exam: Present: warm, dry, intact, normal color. Absent: rash Course Vital Signs 09/07/21 20:40 Temperature 99.0 F Pulse Rate 80 Respiratory 20 Rate Blood Pressure 119/82 O2 Sat by Pulse 97 Oximetry Medical Decision Making - Lab Data Result diagrams: 09/07/21 21:57 09/07/21 21:57 Lab Results 09/07/21 09/07/21 09/07/21 Range/Units 21:57 21:57 21:59 WBC 9.0 (3.8-10.6) k/uL RBC 4.93 (3.80-5.40) m/uL Hgb 15.2 (11.4-16.0) gm/dL Hct 46.2 H (34.0-46.0) % MCV 93.7 (80.0-100.0) fL MCH 30.9 (25.0-35.0) pg MCHC 33.0 (31.0-37.0) g/dL RDW 13.1 (11.5-15.5) % Plt Count 347 (150-450) k/uL MPV 7.0 Neutrophils % 53 % Lymphocytes % 40 % Monocytes % 3 % Eosinophils % 2 % Basophils % 0 % Neutrophils # 4.8 (1.3-7.7) k/uL Lymphocytes # 3.6 (1.0-4.8) k/uL Monocytes # 0.3 (0-1.0) k/uL Eosinophils # 0.1 (0-0.7) k/uL Basophils # 0.0 (0-0.2) k/uL Sodium 140 (137-145) mmol/L Potassium 4.8 (3.5-5.1) mmol/L Chloride 103 (98-107) mmol/L Carbon Dioxide 26 (22-30) mmol/L Anion Gap 11 mmol/L BUN 11 (7-17) mg/dL Creatinine 0.99 (0.52-1.04) mg/dL Est GFR (CKD-EPI)AfAm 82 (>60 ml/min/1.73 sqM) Est GFR (CKD-EPI)NonAf 71 (>60 ml/min/1.73 sqM) Glucose 91 (74-99) mg/dL Calcium 9.3 (8.4-10.2) mg/dL Total Bilirubin 0.4 (0.2-1.3) mg/dL AST 53 H (14-36) U/L ALT 30 (4-34) U/L Alkaline Phosphatase 69 (38-126) U/L Total Protein 7.5 (6.3-8.2) g/dL Albumin 4.3 (3.5-5.0) g/dL Amylase 55 (30-110) U/L Lipase 52 (23-300) U/L Urine Color Yellow Urine Appearance Cloudy H (Clear) Urine pH 5.0 (5.0-8.0) Ur Specific [place] 1.023 (1.001-1.035) Urine Protein Negative (Negative) Urine Glucose (UA) Negative (Negative) Urine Ketones Negative (Negative) Urine Blood Negative (Negative) Urine Nitrite Negative (Negative) Urine Bilirubin Negative (Negative) Urine Urobilinogen <2.0 (<2.0) mg/dL Ur Leukocyte Esterase Negative (Negative) Urine RBC 2 (0-5) /hpf Urine WBC 2 (0-5) /hpf Ur Squamous Epith Cells 10 H (0-4) /hpf Urine Bacteria Rare H (None) /hpf Hyaline Casts 1 (0-2) /lpf Urine Mucus Rare H (None) /hpf Disposition Clinical Impression: Abdominal pain Disposition: HOME SELF-CARE Condition: Good Instructions (If sedation given, give patient instructions): Biliary Colic (ED), Abdominal Pain (ED) Is patient prescribed a controlled substance at d/c from ED?: No Referrals: Yue Roca MD [Primary Care Provider] - 1-2 days Óscar Milligan MD [Medical Doctor] - 1-2 days
[2021-09-08] MEDS ORDERED: MORPHINE SULFATE 4 MG/ML SYRINGE IV STA (00:16)
[2021-09-08] MEDS ORDERED: HYDROcodone/APAP 5-325MG 1 EACH TAB PO STA (00:20)
[2021-09-08 00:31] VITALS: BP 142/97
== END 2021-09-08 00:34 | disposition home or self-care (01) ==
LOC: EC 19:18
DX: R10.11 Right upper quadrant pain (principal); J44.9 Chronic obstructive pulmonary disease, unspecified; I10 Essential (primary) hypertension; F41.9 Anxiety disorder, unspecified; F31.9 Bipolar disorder, unspecified; F90.9 Attention-deficit hyperactivity disorder, unspecified type; F12.90 Cannabis use, unspecified, uncomplicated; Z98.51 Tubal ligation status; Z91.040 Latex allergy status; Z87.891 Personal history of nicotine dependence
CPT/HCPCS: 36415; 74018; 76705; 80053; 81001; 82150; 83690; 85025; 99284

== ENCOUNTER 2021-12-13 15:51 | Emergency (ER) | payer OTHER ==
[2021-12-13 16:11] VITALS: TEMP 97.9
[2021-12-13] MEDS ORDERED: SODIUM CHLORIDE 0.9% 1,000 ML IV STA (16:57)
[2021-12-13] MEDS ORDERED: MORPHINE SULFATE 2 MG/ML SYRINGE IVP STA ×2 (16:57→21:05)
[2021-12-13] MEDS ORDERED: ONDANSETRON 4 MG/2 ML VIAL IVP STA (16:57)
[2021-12-13 17:40] LABS: Basophils % (A) 0 %; Eosinophils # (A) 0.1 k/uL (0-0.7); Eosinophils % (A) 1 %; HCT 44.7 % (34.0-46.0); Lymphocytes # (A) 3.2 k/uL (1.0-4.8); Lymphocytes % (A) 23 %; MCH 29.8 pg (25.0-35.0); MCHC 33.5 g/dL (31.0-37.0); Mean Platelet Volume 7.1; Monocytes # (A) 0.5 k/uL (0-1.0); Monocytes % (A) 4 %; Neutrophils # (A) 9.6 k/uL (1.3-7.7); Neutrophils % (A) 70 %; Platelet Count 362 k/uL (150-450); RBC 5.02 m/uL (3.80-5.40); RDW 12.9 % (11.5-15.5); WBC 13.8 k/uL (3.8-10.6)
[2021-12-13 17:44] LABS: INR 0.9 (<1.2)
[2021-12-13 17:45] LABS: Partial Thromboplastin Time 22.1 sec (22.0-30.0); Prothrombin Time 9.6 sec (9.0-12.0)
[2021-12-13 17:49] LABS: ALT 22 U/L (4-34); AST 29 U/L (14-36); African American GFR (CKD) >90 (>60 ml/min/1.73 sqM); Albumin 4.6 g/dL (3.5-5.0); Alkaline Phosphatase 71 U/L (38-126); Anion Gap 11 mmol/L; Blood Urea Nitrogen 9 mg/dL (7-17); Calcium 9.6 mg/dL (8.4-10.2); Carbon Dioxide 24 mmol/L (22-30); Chloride 104 mmol/L (98-107); Glucose 81 mg/dL (74-99); Lipase 88 U/L (23-300); Non-African American GFR(CKD) >90 (>60 ml/min/1.73 sqM); Sodium 139 mmol/L (137-145); Total Bilirubin 0.6 mg/dL (0.2-1.3); Total Protein 8.2 g/dL (6.3-8.2)
[2021-12-13 17:50] LABS: Potassium 4.5 mmol/L (3.5-5.1)
[2021-12-13 18:27] LABS: Appearance,Urine Clear (Clear); Bilirubin,Urine Negative (Negative); Blood,Urine Negative (Negative); Color,Urine Yellow; Glucose,Urine (UA) Negative (Negative); Hyaline Casts,Urine 1 /lpf (0-2); Ketones,Urine Negative (Negative); Leukocyte Esterase,Urine Moderate (Negative); Mucus,Urine Few /hpf; Nitrite,Urine Negative (Negative); Protein,Urine Negative (Negative); RBC,Urine 5 /hpf (0-5); Specific Gravity,Urine 1.027 (1.001-1.035); Squamous Epithelial Cell,Urine 3 /hpf (0-4); Urobilinogen,Urine <2.0 mg/dL (<2.0); WBC,Urine 14 /hpf (0-5)
[2021-12-13] MEDS ORDERED: HYDROmorphone 0.5 MG/0.5 ML SYRINGE IVP STA (19:00)
--- NOTE | 2021-12-13 19:42 | ED ---
General Adult HPI - General Chief complaint: Abdominal Pain Stated complaint: Lower R abd pain Time Seen by Provider: 12/13/21 16:43 Source: patient Mode of arrival: ambulatory Limitations: no limitations - History of Present Illness Initial comments: This 41-year-old female with a past medical history right ovarian cyst and kidney stones presents to the emergency department right lower quadrant pain that began 3 hours. Patient states she all of a sudden began to have right lower quadrant pain and describes as sharp and stabbing in nature around her umbilicus that is radiating to her right lower quadrant. Patient states the pain is colicky in nature and seems to come and go. Patient states the pain is slowly worsening and rates it currently 04/08. Patient states she did take a [place] at home which did not seem to help her pain at all. She states she did have some mild right flank pain yesterday, however that did resolve on its own. She denies any urinary frequency, hesitancy, dribbling, burning or incontinence. Patient denies any back pain. Patient denies any chest pain, shortness of breath, nausea, vomiting, fever, headache, lightheadedness, dizziness, weakness, change in bowel or bladder, changes. - Related Data Home Medications Medication Instructions Recorded Confirmed Pantoprazole Sodium 40 mg PO DAILY 01/26/16 12/13/21 Budesonide/Formoterol Fumarate 2 puff INHALATION RT-BID 08/15/18 12/13/21 [Symbicort 160-4.5 Mcg Inhaler] Albuterol Sulfate [Proair Hfa] 2 puff INHALATION RT-BID PRN 04/12/21 12/13/21 Ergocalciferol [Vitamin D2 (1250 1,250 mcg PO SA 04/12/21 12/13/21 Mcg = 80628 Iu)] HYDROcodone/APAP 5-325MG [[place] 1 tab PO Q6H PRN 04/12/21 12/13/21 5-325] Ondansetron [Zofran] 4 mg PO DAILY PRN 04/12/21 12/13/21 Previous Rx's Medication Instructions Recorded Cephalexin [Keflex] 500 mg PO Q12HR #10 cap 12/13/21 Allergies Allergy/AdvReac Type Severity Reaction Status Date / Time latex Allergy Rash/Hives Verified 12/13/21 18:12 Review of Systems ROS Statement: Those systems with pertinent positive or pertinent negative responses have been documented in the HPI. ROS Other: All systems not noted in ROS Statement are negative. Past Medical History Past Medical History: COPD, Hypertension Additional Past Medical History / Comment(s): marijuana card for chronic pain and nausea History of Any Multi-Drug Resistant Organisms: None Reported Past Surgical History: Orthopedic Surgery, Tonsillectomy, Tubal Ligation Past Anesthesia/Blood Transfusion Reactions: No Reported Reaction Past Psychological History: ADD/ADHD, Anxiety, Bipolar, Depression Smoking Status: Former smoker Past Alcohol Use History: Occasional Past Drug Use History: Marijuana - Past Family History Mother Family Medical History: No Reported History General Exam Limitations: no limitations General appearance: alert, in no apparent distress Head exam: Present: atraumatic, normocephalic, normal inspection Eye exam: Present: normal appearance, PERRL, EOMI. Absent: scleral icterus, conjunctival injection, periorbital swelling ENT exam: Present: normal exam, mucous membranes moist Neck exam: Present: normal inspection. Absent: tenderness, meningismus, lymphadenopathy Respiratory exam: Present: normal lung sounds bilaterally. Absent: respiratory distress, wheezes, rales, rhonchi, stridor Cardiovascular Exam: Present: regular rate, normal rhythm, normal heart sounds. Absent: systolic murmur, diastolic murmur, rubs, gallop, clicks GI/Abdominal exam: Present: soft, tenderness (Right lower quadrant tenderness palpation. Tender to palpation over umbilicus), normal bowel sounds. Absent: distended, guarding, rebound, rigid External exam: Present: other (Patient did refuse speculum exam along with bimanual exam. She reported refuse STD swabs and stated she does not believe it is an STD or anything intravaginal) Speculum exam: Absent: normal speculum exam (Patient did refuse speculum exam) By manual exam: Absent: normal by manual exam (Patient did refuse bimanual exam) Extremities exam: Present: normal inspection, full ROM, normal capillary refill. Absent: tenderness, pedal edema, joint swelling, calf tenderness Back exam: Present: normal inspection, full ROM. Absent: tenderness, CVA tenderness (R), CVA tenderness (L), paraspinal tenderness, vertebral tenderness Neurological exam: Present: alert, oriented X3, CN II-XII intact Psychiatric exam: Present: normal affect, normal mood Skin exam: Present: warm, dry, intact, normal color. Absent: rash Course Vital Signs 12/13/21 12/13/21 16:09 18:11 Temperature 97.9 F Pulse Rate 88 78 Respiratory 18 16 Rate Blood Pressure 137/94 132/78 O2 Sat by Pulse 98 98 Oximetry - Reevaluation(s) Reevaluation #1: 12/13/21 17:08 On reevaluation, patient states her pain is still there. Patient was requesting to have computed tomography scan done prior to having transvaginal ultrasound performed. I did discuss possible ovarian torsion with patient versus appendicitis or kidney stone. Patient states this does somewhat feel similar to pain with her last kidney stone and requests to having computed tomography scan done first. 12/13/21 17:49 On reevaluation, patient states she does have decreased pain, however it is still there. Patient states she thinks she passed a kidney stone due to a little pebble in her urine, however she still states she does still does have some pain in her right lower quadrant. 12/13/21 18:38 And reevaluation, patient states her pain is still there and she is requesting more pain medication this time. Patient lying in bed talking on her cell phone in no acute distress 12/13/21 17:19 On reevaluation patient, she states her pain has significantly decreased and is now 3/10. Patient states the pain is now radiating to her umbilicus. She denies any pain radiating to her groin or back. 12/13/21 20:15 On reevaluation, patient states her pain has significantly decreased, however she states since the computed tomography scan came back negative and did not show any acute abnormalities, since she is here she would like a transvaginal ultrasound just to rule out ovarian torsion since she does have a history of a cyst in her past 12/13/21 20:52 Reevaluation come patient states her pain has significantly decreased, however if she is getting be discharged she is requesting Toradol just in case it was a kidney stone. Patient did refuse pelvic exam: Bimanual exam and STD testing. Due to the patient's pain being relieved with pain medication while in the ED, she would prefer to be discharged and to follow-up with her primary care provider in the next 1-2 days. Strict return precautions were discussed with patient. She verbally agreed to return the emergency Department if she gets a fever greater than 100.4, her pain returns or if any new, concerning or wor sening symptoms occurred. I did give patient Was on the emergency department and did treat her with Keflex 5 days due to UTI. 12/13/21 21:27 On reevaluation, patient sitting in bed patient and her daughter. She states her pain is significantly decreased at this time. I did review transvaginal u ltrasound results with her and instructed her to follow up with her [facility] and return to the emergency department for pain returns or if she experiences any new or worsening symptoms. She did state she return if any of her symptoms return, however she stated she believes it was a kidney stone due to having a small pebble in her urine Medical Decision Making - Medical Decision Making This 41-year-old female presents emergency Department with right lower quadrant pain and tenderness to palpation that began around 1-2:00 PM. Labs with white b lood cells of 13.8, hydration unremarkable, chemistry unremarkable, urine with moderate leukocyte esterase and 14 white blood cells present. Urine hCG not detected. Keflex prescribed to patient [address] abdomen and pelvis impression: Some colonic diverticulosis without diverticulitis present. Normal appendix. No adverse change compared to old exam. Pelvic Transvaginal ultrasound: Ovaries are not seen. No evidence of pelvic mass. Uterine fibroid right uterus measuring 2.92.82.8 the patient was unaware of. I did instruct patient to follow-up with her [facility] for this issue. Patient states her pain has significantly decreased and states it is 3/10 currently. I did instruct patient that this could still possibly be an ovarian issue for appendicitis and instructed her to return if her pain returns or worsens or if any new symptoms arise. Patient did refuse vaginal exam, speculum exam and bimanual exam. She also did refuse STD vaginal swabs/testing. Due to patient's pain improving, patient requesting to be discharged and she would like to follow up with her primary care provider. Strict return precautions were discussed. Patient verbally agreed to plan. Patient sent home in stable condition. Case discussed in detail my attending, Dr. Freitas. - Lab Data Result diagrams: 12/13/21 17:19 12/13/21 17:19 Lab Results 12/13/21 12/13/21 12/13/21 Range/Units 17:19 17:19 17:24 WBC 13.8 H (3.8-10.6) k/uL RBC 5.02 (3.80-5.40) m/uL Hgb 15.0 (11.4-16.0) gm/dL Hct 44.7 (34.0-46.0) % MCV 89.0 (80.0-100.0) fL MCH 29.8 (25.0-35.0) pg MCHC 33.5 (31.0-37.0) g/dL RDW 12.9 (11.5-15.5) % Plt Count 362 (150-450) k/uL MPV 7.1 Neutrophils % 70 % Lymphocytes % 23 % Monocytes % 4 % Eosinophils % 1 % Basophils % 0 % Neutrophils # 9.6 H (1.3-7.7) k/uL Lymphocytes # 3.2 (1.0-4.8) k/uL Monocytes # 0.5 (0-1.0) k/uL Eosinophils # 0.1 (0-0.7) k/uL Basophils # 0.0 (0-0.2) k/uL PT 9.6 (9.0-12.0) sec INR 0.9 (<1.2) APTT 22.1 (22.0-30.0) sec Sodium 139 (137-145) mmol/L Potassium 4.5 (3.5-5.1) mmol/L Chloride 104 (98-107) mmol/L Carbon Dioxide 24 (22-30) mmol/L Anion Gap 11 mmol/L BUN 9 (7-17) mg/dL Creatinine 0.75 (0.52-1.04) mg/dL Est GFR (CKD-EPI)AfAm >90 (>60 ml/min/1.73 sqM) Est GFR (CKD-EPI)NonAf >90 (>60 ml/min/1.73 sqM) Glucose 81 (74-99) mg/dL Plasma Lactic Acid Alberto (0.7-2.0) mmol/L Calcium 9.6 (8.4-10.2) mg/dL Total Bilirubin 0.6 (0.2-1.3) mg/dL AST 29 (14-36) U/L ALT 22 (4-34) U/L Alkaline Phosphatase 71 (38-126) U/L Total Protein 8.2 (6.3-8.2) g/dL Albumin 4.6 (3.5-5.0) g/dL Lipase 88 (23-300) U/L Urine Color Urine Appearance (Clear) Urine pH (5.0-8.0) Ur Specific [place] (1.001-1.035) Urine Protein (Negative) Urine Glucose (UA) (Negative) Urine Ketones (Negative) Urine Blood (Negative) Urine Nitrite (Negative) Urine Bilirubin (Negative) Urine Urobilinogen (<2.0) mg/dL Ur Leukocyte Esterase (Negative) Urine RBC (0-5) /hpf Urine WBC (0-5) /hpf Ur Squamous Epith Cells (0-4) /hpf Hyaline Casts (0-2) /lpf Urine Mucus (None) /hpf Urine HCG, Qual (Not Detectd) 12/13/21 12/13/21 12/13/21 Range/Units 17:24 18:18 18:18 WBC (3.8-10.6) k/uL RBC (3.80-5.40) m/uL Hgb (11.4-16.0) gm/dL Hct (34.0-46.0) % MCV (80.0-100.0) fL MCH (25.0-35.0) pg MCHC (31.0-37.0) g/dL RDW (11.5-15.5) % Plt Count (150-450) k/uL MPV Neutrophils % % Lymphocytes % % Monocytes % % Eosinophils % % Basophils % % Neutrophils # (1.3-7.7) k/uL Lymphocytes # (1.0-4.8) k/uL Monocytes # (0-1.0) k/uL Eosinophils # (0-0.7) k/uL Basophils # (0-0.2) k/uL PT (9.0-12.0) sec INR (<1.2) APTT (22.0-30.0) sec Sodium (137-145) mmol/L Potassium (3.5-5.1) mmol/L Chloride (98-107) mmol/L Carbon Dioxide (22-30) mmol/L Anion Gap mmol/L BUN (7-17) mg/dL Creatinine (0.52-1.04) mg/dL Est GFR (CKD-EPI)AfAm (>60 ml/min/1.73 sqM) Est GFR (CKD-EPI)NonAf (>60 ml/min/1.73 sqM) Glucose (74-99) mg/dL Plasma Lactic Acid Alberto 0.9 (0.7-2.0) mmol/L Calcium (8.4-10.2) mg/dL Total Bilirubin (0.2-1.3) mg/dL AST (14-36) U/L ALT (4-34) U/L Alkaline Phosphatase (38-126) U/L Total Protein (6.3-8.2) g/dL Albumin (3.5-5.0) g/dL Lipase (23-300) U/L Urine Color Yellow Urine Appearance Clear (Clear) Urine pH 6.0 (5.0-8.0) Ur Specific [place] 1.027 (1.001-1.035) Urine Protein Negative (Negative) Urine Glucose (UA) Negative (Negative) Urine Ketones Negative (Negative) Urine Blood Negative (Negative) Urine Nitrite Negative (Negative) Urine Bilirubin Negative (Negative) Urine Urobilinogen <2.0 (<2.0) mg/dL Ur Leukocyte Esterase Moderate H (Negative) Urine RBC 5 (0-5) /hpf Urine WBC 14 H (0-5) /hpf Ur Squamous Epith Cells 3 (0-4) /hpf Hyaline Casts 1 (0-2) /lpf Urine Mucus Few H (None) /hpf Urine HCG, Qual Not Detected (Not Detectd) Disposition Clinical Impression: Abdominal pain Disposition: HOME SELF-CARE Condition: Stable Instructions (If sedation given, give patient instructions): Abdominal Pain (ED) Additional Instructions: Follow-up with your primary care provider next 1-2 days. Follow-up with your [facility] early next week. Take Keflex as directed. Return to the emergency department with any new, worsening, or concerning symptoms. Prescriptions: Cephalexin [Keflex] 500 mg PO Q12HR #10 cap Is patient prescribed a controlled substance at d/c from ED?: No Referrals: Yue Roca MD [Primary Care Provider] - 1-2 days
--- NOTE | 2021-12-13 20:08 | CT ---
EXAMINATION TYPE: CT abdomen pelvis w con DATE OF EXAM: 12/13/2021 COMPARISON: 02/18/2019 HISTORY: RLQ pain CT DLP: 2271.5 mGycm Automated exposure control for dose reduction was used. CONTRAST: Performed with IV Contrast, patient injected with 100 mL of Isovue 300. Images obtained from the diaphragm to the floor the pelvis with IV contrast. Lung bases are clear. There is no pleural effusion. Heart size is normal. There is no pericardial eff usion. Liver spleen and stomach pancreas and gallbladder appear normal. The bile ducts are not dilate d. There is no adrenal mass. Kidneys show satisfactory contrast opacification. There is no hydronephr osis. Appendix is posterior and appears normal. There is no retroperitoneal adenopathy. Ureters are n ot dilated. The bladder distends smoothly. There is no inguinal hernia. Uterus is anteverted. There is no evidenc e of a pelvic mass. There are a few sigmoid diverticula. No definite diverticulitis. There are clips from tubal ligation. There is no mesenteric edema. There is no ascites or free air. There is no bowel obstruction. Lumbar vertebrae have normal alignment. Disc spaces are fairly normal. There is no compression fracture. Bon y pelvis is intact. The hip joints are intact. Sacroiliac joints appear normal. IMPRESSION: There is some colonic diverticulosis without diverticulitis. Normal appendix. No adverse change dung red to old exam.
[2021-12-13] MEDS ORDERED: KETOROLAC 15 MG/ML 1 ML VIAL IVP STA (21:05)
[2021-12-13] MEDS ORDERED: CEPHALEXIN 500 MG CAP PO STA (21:08)
--- NOTE | 2021-12-13 21:17 | US ---
EXAMINATION TYPE: US pelvis complete transvag DATE OF EXAM: 12/13/2021 COMPARISON: CT 12/13/21, US pelvis 2017 CLINICAL HISTORY: R/O torsion H/O cyst. hx ovarian cyst; right pelvic pain TECHNIQUE: Transvaginal (TV) and Transabdominal (TA) . Date of LMP: 12/01/21 EXAM MEASUREMENTS: Uterus: 11.9 x 5.4 x 5.6 cm Endometrial Stripe: 0.78 cm 1. Uterus: Anteverted Probable fibroid right uterus measuring 2.9 x 2.8 x 2.8 cm 2. Endometrium: limited visualization 3. Right Ovary: Obscured by overlying bowel gas 4. Left Ovary: Obscured by overlying bowel gas 5. Bilateral Adnexa: Obscured by overlying bowel gas 6. Posterior cul-de-sac: wnl Limited study due to patient body habitus and excessive overlying bowel gas. Unable to assess for ovarian torsion, neither ovary seen today. IMPRESSION: Ovaries not seen. No evidence of a pelvic mass. Uterine fibroid.
[2021-12-13 21:42] VITALS: BP 154/89; PULSE 85; RESP 18
== END 2021-12-13 21:42 | disposition home or self-care (01) ==
LOC: EC 15:51
DX: K57.30 Diverticulosis of large intestine without perforation or abscess without bleeding (principal); J44.9 Chronic obstructive pulmonary disease, unspecified; I10 Essential (primary) hypertension; F90.9 Attention-deficit hyperactivity disorder, unspecified type; F41.9 Anxiety disorder, unspecified; F31.9 Bipolar disorder, unspecified; Z87.891 Personal history of nicotine dependence; F12.90 Cannabis use, unspecified, uncomplicated; Z91.040 Latex allergy status; Z98.51 Tubal ligation status
CPT/HCPCS: 99284; 96374; 96375 ×3; 96376; 96361; 36415; 80053; 83605; 83690; 85025; 85610; 85730; 81001; 81025; 87086; 76856; 76830; 74177; J2405; J2270; J1885; J1170; Q9967

== ENCOUNTER 2022-01-01 23:42 | Emergency (ER) | payer OTHER ==
[2022-01-01 23:45] VITALS: BP 146/91; PULSE 107; RESP 20; TEMP 97.5
[2022-01-02] MEDS ORDERED: ERYTHROMYCIN 5 MG/GM OPHTH OINT 3.5 GM TUBE BOTH EYES STA (00:58)
--- NOTE | 2022-01-02 01:11 | ED ---
General Adult HPI - General Chief complaint: Eye Problems Stated complaint: EYE SWOLLEN Time Seen by Provider: 01/02/22 00:35 Source: patient, RN notes reviewed Mode of arrival: ambulatory Limitations: no limitations - History of Present Illness Initial comments: 41-year-old female presents to the emergency department for evaluation of bilateral eye irritation. States redness began yesterday and has worsened throughout the day today. Noticed thick yellow drainage from the right eye this evening and had discomfort in the left eye as well. Patient denies any fever, chills, vision changes, pain with eye movement, foreign body presents, or contact use. - Related Data Home Medications Medication Instructions Recorded Confirmed Pantoprazole Sodium 40 mg PO DAILY 01/26/16 12/13/21 Budesonide/Formoterol Fumarate 2 puff INHALATION RT-BID 08/15/18 12/13/21 [Symbicort 160-4.5 Mcg Inhaler] Albuterol Sulfate [Proair Hfa] 2 puff INHALATION RT-BID PRN 04/12/21 12/13/21 Ergocalciferol [Vitamin D2 (1250 1,250 mcg PO SA 04/12/21 12/13/21 Mcg = 29036 Iu)] HYDROcodone/APAP 5-325MG [[place] 1 tab PO Q6H PRN 04/12/21 12/13/21 5-325] Ondansetron [Zofran] 4 mg PO DAILY PRN 04/12/21 12/13/21 Previous Rx's Medication Instructions Recorded Cephalexin [Keflex] 500 mg PO Q12HR #10 cap 12/13/21 Erythromycin Ophth Oint [Romycin 1 applic BOTH EYES QID 7 Days #3.5 01/02/22 Ophth Oint] gm Allergies Allergy/AdvReac Type Severity Reaction Status Date / Time latex Allergy Rash/Hives Verified 01/01/22 23:45 Review of Systems ROS Statement: Those systems with pertinent positive or pertinent negative responses have been documented in the HPI. ROS Other: All systems not noted in ROS Statement are negative. Past Medical History Past Medical History: COPD, Hypertension Additional Past Medical History / Comment(s): marijuana card for chronic pain and nausea History of Any Multi-Drug Resistant Organisms: None Reported Past Surgical History: Orthopedic Surgery, Tonsillectomy, Tubal Ligation Past Anesthesia/Blood Transfusion Reactions: No Reported Reaction Past Psychological History: ADD/ADHD, Anxiety, Bipolar, Depression Smoking Status: Former smoker Past Alcohol Use History: Occasional Past Drug Use History: Marijuana - Past Family History Mother Family Medical History: No Reported History General Exam Limitations: no limitations General appearance: alert, in no apparent distress Eye exam: Present: PERRL, EOMI, conjunctival injection, other (Small amount of yellow drainage noted from right eye, thin clear drainage from left eye). Absent: periorbital swelling, periorbital tenderness ENT exam: Present: normal exam, normal oropharynx, mucous membranes moist Respiratory exam: Present: normal lung sounds bilaterally. Absent: respiratory distress, wheezes, rales, rhonchi, stridor Cardiovascular Exam: Present: regular rate, normal rhythm, normal heart sounds. Absent: systolic murmur, diastolic murmur, rubs, gallop, clicks GI/Abdominal exam: Present: soft, normal bowel sounds. Absent: distended, tenderness, guarding, rebound, rigid Neurological exam: Present: alert, oriented X3, CN II-XII intact Course Vital Signs 01/01/22 23:43 Temperature 97.5 F L Pulse Rate 107 H Respiratory 20 Rate Blood Pressure 146/91 O2 Sat by Pulse 97 Oximetry Medical Decision Making - Medical Decision Making 41-year-old female in no significant past medical history presents to the emergency department for evaluation of bilateral eye redness and discharge. Upon exam, patient is appearing in no acute distress. She vital signs are stable. Bilateral conjunctivitis with yellow drainage from the right eye and clear drainage from the left eye is noted. She is not experiencing any vision changes bacterial conjunctivitis is the most likely cause. Patient is not a contact wearer therefore will be prescribed erythromycin ointment and instructed on its use. Encouraged to follow up with PCP or eye doctor for further evaluation and treatment. Return parameters discussed in detail. Patient verbalizes understanding and agrees with this plan. Attending: Manuel. Disposition Clinical Impression: Bacterial conjunctivitis of both eyes Disposition: HOME SELF-CARE Condition: Stable Instructions (If sedation given, give patient instructions): Conjunctivitis (ED) Additional Instructions: Avoid rubbing your eyes. Wash your hands thoroughly. Avoid wearing contacts. Apply antibiotic eye four times daily to both eyes. Follow-up with your PCP for a recheck this week. Return to the emergency department with any new, worsening, or concerning symptoms. Prescriptions: Erythromycin Ophth Oint [Romycin Ophth Oint] 1 applic BOTH EYES QID 7 Days #3.5 gm Is patient prescribed a controlled substance at d/c from ED?: No Referrals: Isaías Gamino MD [Primary Care Provider] - 1-2 days Time of Disposition: 01:11
== END 2022-01-02 01:44 | disposition home or self-care (01) ==
LOC: EC 23:42
DX: H10.9 Unspecified conjunctivitis (principal); I10 Essential (primary) hypertension; J44.9 Chronic obstructive pulmonary disease, unspecified; F31.9 Bipolar disorder, unspecified; F41.9 Anxiety disorder, unspecified; F90.9 Attention-deficit hyperactivity disorder, unspecified type; F12.90 Cannabis use, unspecified, uncomplicated; Z87.891 Personal history of nicotine dependence; Z79.51 Long term (current) use of inhaled steroids; Z79.899 Other long term (current) drug therapy
CPT/HCPCS: 99283

== ENCOUNTER 2023-07-30 02:58 | Emergency (ER) | payer OTHER ==
[2023-07-30 03:13] VITALS: BP 153/83; PULSE 88; RESP 18; TEMP 99.1
--- NOTE | 2023-07-30 03:47 | ED ---
ENT HPI - General Chief complaint: ENT Stated complaint: Earache Time Seen by Provider: 07/30/23 03:38 Source: patient Mode of arrival: ambulatory Limitations: no limitations - History of Present Illness MD complaint: ear pain Onset/Timin -: days(s) Location: R ear Severity: moderate Quality: aching Consistency: constant Improves with: none Worsens with: none - Related Data Home Medications Medication Instructions Recorded Confirmed Pantoprazole Sodium 40 mg PO DAILY 01/26/16 12/13/21 Budesonide/Formoterol Fumarate 2 puff INHALATION RT-BID 08/15/18 12/13/21 [Symbicort 160-4.5 Mcg Inhaler] Albuterol Sulfate [Proair Hfa] 2 puff INHALATION RT-BID PRN 04/12/21 12/13/21 Ergocalciferol [Vitamin D2 (1250 1,250 mcg PO SA 04/12/21 12/13/21 Mcg = 39954 Iu)] HYDROcodone/APAP 5-325MG [[place] 1 tab PO Q6H PRN 04/12/21 12/13/21 5-325] Ondansetron [Zofran] 4 mg PO DAILY PRN 04/12/21 12/13/21 Previous Rx's Medication Instructions Recorded Cephalexin [Keflex] 500 mg PO Q12HR #10 cap 12/13/21 Erythromycin Ophth Oint [Romycin 1 applic BOTH EYES QID 7 Days #3.5 01/02/22 Ophth Oint] gm Allergies Allergy/AdvReac Type Severity Reaction Status Date / Time latex Allergy Rash/Hives Verified 01/01/22 23:45 Review of Systems ROS Statement: Those systems with pertinent positive or pertinent negative responses have been documented in the HPI. ROS Other: All systems not noted in ROS Statement are negative. Constitutional: Denies: fever, chills ENT: Reports: ear pain. Denies: throat pain, hearing loss, congestion Respiratory: Denies: cough, dyspnea Skin: Denies: rash Neurological: Denies: headache Past Medical History Past Medical History: COPD, Hypertension Additional Past Medical History / Comment(s): marijuana card for chronic pain and nausea History of Any Multi-Drug Resistant Organisms: None Reported Past Surgical History: Orthopedic Surgery, Tonsillectomy, Tubal Ligation Past Anesthesia/Blood Transfusion Reactions: No Reported Reaction Past Psychological History: ADD/ADHD, Anxiety, Bipolar, Depression Smoking Status: Former smoker Past Alcohol Use History: Occasional Past Drug Use History: Marijuana - Past Family History Mother Family Medical History: No Reported History General Exam Limitations: no limitations General appearance: alert, in no apparent distress Head exam: Present: atraumatic, normocephalic Eye exam: Absent: scleral icterus, conjunctival injection ENT exam: Present: normal oropharynx, TM's normal bilaterally, other (There is edema of the external auditory canal and mild tenderness of the tragus. There is no postauricular swelling or tenderness. No mastoid tenderness.). Absent: normal external ear exam Neck exam: Present: normal inspection, full ROM. Absent: tenderness, meningismus, lymphadenopathy Respiratory exam: Present: normal lung sounds bilaterally. Absent: respiratory distress, wheezes, rales, rhonchi, stridor Cardiovascular Exam: Present: regular rate, normal rhythm, normal heart sounds. Absent: systolic murmur, diastolic murmur, rubs, gallop Neurological exam: Present: alert Skin exam: Present: warm, dry, intact, normal color. Absent: rash Course Vital Signs 07/30/23 03:08 Temperature 99.1 F Pulse Rate 88 Respiratory 18 Rate Blood Pressure 153/83 O2 Sat by Pulse 97 Oximetry Medical Decision Making - Medical Decision Making Was pt. sent in by a medical professional or institution ([facility], LANGUAGE ASST, urgent care, hospital, or senior living...) When possible be specific @ -[No] Did you speak to anyone other than the patient for history (EMS, parent, family, police, friend...)? What history was obtained from this source @ -[No] Did you review nursing and triage notes (agree or disagree)? Why? @ -[I reviewed and agree with nursing and triage notes] Were old charts reviewed (outside hosp., previous admission, EMS record, old EKG, old radiological studies, urgent care reports/EKG's, senior living records)? Report findings @ -[No old charts were reviewed] Differential Diagnosis (chest pain, altered mental status, abdominal pain women, abdominal pain men, vaginal bleeding, weakness, fever, dyspnea, syncope, headache, dizziness, GI bleed, back pain, seizure, CVA, palpatations, mental health, musculoskeletal)? @ -[Differential diagnosis for ear pain includes but not limited to otitis media, otitis externa, trauma, mass or tumor, amongst other conditions EKG interpreted by me (3pts min.). @ -[As above] X-rays interpreted by me (1pt min.). @ -[None done] CT interpreted by me (1pt min.). @ -[None done] U/S interpreted by me (1pt. min.). @ -[None done] What testing was considered but not performed or refused? (CT, X-rays, U/S, labs)? Why? @ -[None] What meds were considered but not given or refused? Why? @ -[None] Did you discuss the management of the patient with other professionals (professionals i.e. , PA, LANGUAGE ASST, lab, RT, psych nurse, social worker psychiatric, cardiology consultant, teacher, equal employment opportunity officer, case checker)? Give summary @ -[No] Was smoking cessation discussed for >3mins.? @ -[No] Was critical care preformed (if so, how long)? @ -[No] Were there social determinants of health that impacted care today? How? (Homelessness, low income, unemployed, alcoholism, drug addiction, transportation, low edu. Level, literacy, decrease access to med. care, long term, rehab)? @ -[No] Was there de-escalation of care discussed even if they declined (Discuss DNR or withdrawal of care, Hospice)? DNR status @ -[No] What co-morbidities impacted this encounter? (DM, HTN, Smoking, COPD, CAD, Cancer, CVA, ARF, Chemo, Hep., AIDS, mental health diagnosis, sleep apnea, morbid obesity)? @ -[None] Was patient admitted / discharged? Hospital course, mention meds given and route, prescriptions, significant lab abnormalities, going to OR and other pertinent info. @ -[Patient's 42-year-old woman with otitis externa. The patient started on antibiotic drops, discussed appropriate further care and follow-up as well as return parameters. Undiagnosed new problem with uncertain prognosis? @ -[No] Drug Therapy requiring intensive monitoring for toxicity (Heparin, Nitro, Insulin, Cardizem)? @ -[No] Were any procedures done? @ -[No] Diagnosis/symptom? @ -[Acute otitis externa Acute, or Chronic, or Acute on Chronic? @ -[Acute Uncomplicated (without systemic symptoms) or Complicated (systemic symptoms)? @ -[Uncomplicated Side effects of treatment? @ -[No] Exacerbation, Progression, or Severe Exacerbation? @ -[No] Poses a threat to life or bodily function? How? (Chest pain, [place], [place], pneumonia, PE, COPD, DKA, ARF, appy, cholecystitis, CVA, Diverticulitis, Homicidal, Suicidal, threat to staff... and all critical care pts) @ -[No] Disposition Clinical Impression: Otitis externa Disposition: HOME SELF-CARE Condition: Good Instructions (If sedation given, give patient instructions): Swimmer's Ear (ED) Is patient prescribed a controlled substance at d/c from ED?: No Referrals: Isaías Gamino MD [Primary Care Provider] - 1-2 days
[2023-07-30] MEDS ORDERED: NEOMYCIN-POLYMYXIN-HC (3.5-10,000-10 MG) OTIC DROPS 10 ML BTL RIGHT EAR STA (03:49)
== END 2023-07-30 04:12 | disposition home or self-care (01) ==
LOC: EC 02:58
DX: H60.91 Unspecified otitis externa, right ear (principal); I10 Essential (primary) hypertension; J44.9 Chronic obstructive pulmonary disease, unspecified; F12.90 Cannabis use, unspecified, uncomplicated; Z87.891 Personal history of nicotine dependence; Z86.59 Personal history of other mental and behavioral disorders; Z79.51 Long term (current) use of inhaled steroids; Z79.899 Other long term (current) drug therapy; Z91.040 Latex allergy status
CPT/HCPCS: 99282

== ENCOUNTER 2023-10-24 13:32 | Emergency (ER) | payer OTHER ==
[2023-10-24 13:52] VITALS: RESP 18; TEMP 97.9
--- NOTE | 2023-10-24 14:25 | XR ---
EXAMINATION TYPE: XR chest 2V DATE OF EXAM: 10/24/2023 COMPARISON: 06/07/2021 INDICATION: Cough x3 days, fever TECHNIQUE: Frontal and lateral views of the chest are obtained. FINDINGS: The heart size is normal. The pulmonary vasculature is normal. The lungs are clear. IMPRESSION: 1. No acute pulmonary process.
--- NOTE | 2023-10-24 14:48 | ED ---
URI HPI - General Chief Complaint: Upper Respiratory Infection Stated Complaint: SOB,Coughing up Green Mucus Time Seen by Provider: 10/24/23 13:48 Source: patient, RN notes reviewed Mode of arrival: ambulatory Limitations: no limitations - History of Present Illness Initial Comments: 43-year-old female presents emergency department chief complaint of cough congestion body aches fevers chills nausea. Symptoms have been present for 4 days. She does have a history of asthma has had mild wheezing. Patient denies any chest pains she states she has lung tightness. Denies any significant neck discomfort she does complain of headache. She states has been taking Tylenol Motrin [id number] cough and cold meds. Patient states her roommate was sick with similar symptoms. - Related Data Home Medications Medication Instructions Recorded Confirmed Pantoprazole Sodium 40 mg PO DAILY 01/26/16 12/13/21 Budesonide/Formoterol Fumarate 2 puff INHALATION RT-BID 08/15/18 12/13/21 [Symbicort 160-4.5 Mcg Inhaler] Albuterol Sulfate [Proair Hfa] 2 puff INHALATION RT-BID PRN 04/12/21 12/13/21 Ergocalciferol [Vitamin D2 (1250 1,250 mcg PO SA 04/12/21 12/13/21 Mcg = 74479 Iu)] HYDROcodone/APAP 5-325MG [[place] 1 tab PO Q6H PRN 04/12/21 12/13/21 5-325] Ondansetron [Zofran] 4 mg PO DAILY PRN 04/12/21 12/13/21 Previous Rx's Medication Instructions Recorded Cephalexin [Keflex] 500 mg PO Q12HR #10 cap 12/13/21 Erythromycin Ophth Oint [Romycin 1 applic BOTH EYES QID 7 Days #3.5 01/02/22 Ophth Oint] gm Ondansetron Odt [Zofran Odt] 4 mg PO Q8HR PRN #10 tab 10/24/23 predniSONE 50 mg PO DAILY #5 tab 10/24/23 Allergies Allergy/AdvReac Type Severity Reaction Status Date / Time latex Allergy Rash/Hives Verified 10/24/23 13:41 Review of Systems ROS Statement: Those systems with pertinent positive or pertinent negative responses have been documented in the HPI. ROS Other: All systems not noted in ROS Statement are negative. Past Medical History Past Medical History: COPD, Hypertension Additional Past Medical History / Comment(s): marijuana card for chronic pain and nausea History of Any Multi-Drug Resistant Organisms: None Reported Past Surgical History: Orthopedic Surgery, Tonsillectomy, Tubal Ligation Past Anesthesia/Blood Transfusion Reactions: No Reported Reaction Past Psychological History: ADD/ADHD, Anxiety, Bipolar, Depression Smoking Status: Former smoker Past Alcohol Use History: Occasional Past Drug Use History: Marijuana - Past Family History Mother Family Medical History: No Reported History General Exam Limitations: no limitations General appearance: alert, in no apparent distress Head exam: Present: atraumatic, normocephalic, normal inspection Eye exam: Present: normal appearance, PERRL, EOMI. Absent: scleral icterus, conjunctival injection, periorbital swelling ENT exam: Present: normal exam, normal oropharynx, mucous membranes moist Neck exam: Present: normal inspection, full ROM. Absent: tenderness, meningismus, lymphadenopathy Respiratory exam: Present: wheezes. Absent: normal lung sounds bilaterally, respiratory distress, rales, rhonchi, stridor Cardiovascular Exam: Present: normal rhythm, tachycardia, normal heart sounds. Absent: systolic murmur, diastolic murmur, rubs, gallop, clicks GI/Abdominal exam: Present: soft, normal bowel sounds. Absent: distended, tenderness, guarding, rebound, rigid Course Vital Signs 10/24/23 13:42 Temperature 97.9 F Pulse Rate 105 H Respiratory 18 Rate Blood Pressure 121/76 O2 Sat by Pulse 97 Oximetry Medical Decision Making - Medical Decision Making Was pt. sent in by a medical professional or institution (, PA, AIR DRIER, urgent care, hospital, or fdc...) When possible be specific @ -No Did you speak to anyone other than the patient for history (EMS, parent, family, police, friend...)? What history was obtained from this source @ -No Did you review nursing and triage notes (agree or disagree)? Why? @ -I reviewed and agree with nursing and triage notes Were old charts reviewed (outside hosp., previous admission, EMS record, old EKG, old radiological studies, urgent care reports/EKG's, fdc records)? Report findings @ -No old charts were reviewed Differential Diagnosis (chest pain, altered mental status, abdominal pain women, abdominal pain men, vaginal bleeding, weakness, fever, dyspnea, syncope, headache, dizziness, GI bleed, back pain, seizure, CVA, palpatations, mental health, musculoskeletal)? @ -COVID 19, RSV, influenza, pneumonia, acute bronchitis, URI, this list is not all inclusive EKG interpreted by me (3pts min.). @ -[A none X-rays interpreted by me (1pt min.). @ -Chest x-ray shows no acute cardiopulmonary process CT interpreted by me (1pt min.). @ -None done U/S interpreted by me (1pt. min.). @ -None done What testing was considered but not performed or refused? (CT, X-rays, U/S, labs)? Why? @ -None What meds were considered but not given or refused? Why? @ -None Did you discuss the management of the patient with other professionals (professionals i.e. , PA, AIR DRIER, lab, RT, psych nurse, high school social studies teacher, veterinary technician instructor, teacher, surveillance dual rate officer, supportive employment case manager)? Give summary @ -No Was smoking cessation discussed for >3mins.? @ -No Was critical care preformed (if so, how long)? @ -No Were there social determinants of health that impacted care today? How? (Homele ssness, low income, unemployed, alcoholism, drug addiction, transportation, low edu. Level, literacy, decrease access to med. care, senior care, rehab)? @ -No Was there de-escalation of care discussed even if they declined (Discuss DNR or withdrawal of care, Hospice)? DNR status @ -No What co-morbidities impacted this encounter? (DM, HTN, Smoking, COPD, CAD, Cancer, CVA, ARF, Chemo, Hep., AIDS, mental health diagnosis, sleep apnea, morbid obesity)? @ -[Asthma Was patient admitted / discharged? Hospital course, mention meds given and route, prescriptions, significant lab abnormalities, going to OR and other pertinent info. @ -Urged patient is influenza A positive x-ray is unremarkable. Patient does have mild wheezing patient was offered DuoNeb treatment here she states she has breathing treatments at home she will continue treatments at home along with steroids, nausea control. Return brands discussed. Undiagnosed new problem with uncertain prognosis? @ -No Drug Therapy requiring intensive monitoring for toxicity (Heparin, Nitro, Insulin, Cardizem)? @ -No Were any procedures done? @ -No Diagnosis/symptom? @ -[Influenza A, asthma Acute, or Chronic, or Acute on Chronic? @ -Acute Uncomplicated (without systemic symptoms) or Complicated (systemic symptoms)? @ -Uncomplicated Side effects of treatment? @ -[No Exacerbation, Progression, or Severe Exacerbation? @ -No Poses a threat to life or bodily function? How? (Chest pain, [place], [place], pneumonia, PE, COPD, DKA, ARF, appy, cholecystitis, CVA, Diverticulitis, Homicidal, Suicidal, threat to staff... and all critical care pts) @ -No - Lab Data Lab Results 10/24/23 Range/Units 13:46 Influenza Type A (PCR) Detected A (Not Detectd) Influenza Type B (PCR) Not Detected (Not Detectd) RSV (PCR) Not Detected (Not Detectd) SARS-CoV-2 (PCR) Not Detected (Not Detectd) Disposition Clinical Impression: Influenza A Disposition: HOME SELF-CARE Condition: Stable Instructions (If sedation given, give patient instructions): Influenza (ED) Additional Instructions: Please return to the Emergency Department if symptoms worsen or any other concerns. Prescriptions: predniSONE 50 mg PO DAILY #5 tab Ondansetron Odt [Zofran Odt] 4 mg PO Q8HR PRN #10 tab PRN Reason: Nausea Is patient prescribed a controlled substance at d/c from ED?: No Referrals: Isaías Gamino MD [Primary Care Provider] - 1-2 days Time of Disposition: 14:48
[2023-10-24 15:10] VITALS: BP 100/68; PULSE 93
== END 2023-10-24 15:06 | disposition home or self-care (01) ==
LOC: EC 13:32
DX: J10.1 Influenza due to other identified influenza virus with other respiratory manifestations (principal); I10 Essential (primary) hypertension; J44.89 Other specified chronic obstructive pulmonary disease; F12.90 Cannabis use, unspecified, uncomplicated; Z20.822 Contact with and (suspected) exposure to COVID-19; Z79.51 Long term (current) use of inhaled steroids; Z87.891 Personal history of nicotine dependence; Z91.040 Latex allergy status
CPT/HCPCS: 71046; 87636; 99285

== ENCOUNTER 2024-07-09 19:20 | Emergency (ER) | payer OTHER ==
[2024-07-09 19:31] VITALS: RESP 20
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
--- NOTE | 2024-07-09 21:47 | XR ---
EXAMINATION TYPE: XR chest 2V DATE OF EXAM: 07/09/2024 9:11 PM CLINICAL INDICATION:Female, 43 years old with history of shortness of breath; [facility] COMPARISON: 10/24/2023 TECHNIQUE: XR chest 2V. Frontal and lateral views of the chest.. FINDINGS: Lines/Tubes/Devices: No indwelling lines are seen. Extrinsic structures over the field. Heart/mediastinum: Heart size is normal. Mediastinum appears normal. Pulmonary vascularity: Not increased, Lungs/Pleura: Prominent interstitial lung markings are seen scattered throughout the lungs. No eviden ce of focal consolidation, pneumothorax or pleural effusion. Musculoskeletal: No acute osseous abnormality demonstrated in the limits of the exam. Other findings: None. IMPRESSION: No acute cardiopulmonary abnormality. [facility], , 07/09/2024 9:44 PM
[2024-07-09] MEDS: IPRATROPIUM-ALBUTEROL 3 ML NEB INHALATION STA (21:59)
[2024-07-09] MEDS: methylPREDNISolone SOD SUCCI 125 MG/2 ML VIAL IM ONE (22:11)
[2024-07-09 22:58] VITALS: BP 132/91; PULSE 91; TEMP 98.1
== END 2024-07-09 22:58 | disposition home or self-care (01) ==
LOC: EC 19:20
CPT/HCPCS: 71046; 87636; 94640; 96372; 99285